=== PATIENT | female | born 1960 | race Hispanic/Latino ===

== ENCOUNTER 2017-02-11 20:50 | Emergency (ER) | payer MEDICAID ==
[2017-02-11 20:52] VITALS: BMI 24.7
[2017-02-11 21:03] VITALS: RESP 19; TEMP 97.8; O2SAT 100
[2017-02-11] MEDS ORDERED: oxyCODONE 30 mg Immediate Release Tab PO STA (21:20)
[2017-02-11 21:30] LABS: ADD MANUAL DIFF? NO
[2017-02-11 21:39] VITALS: PULSE 81
--- NOTE | 2017-02-11 21:45 | ED PDOC ---
Arrival/HPI - General Chief Complaint: Trauma Time Seen by Provider: 02/11/17 21:12 Historian: Patient - History of Present Illness Narrative History of Present Illness (Text): 02/11/17 21:15 A 56 year old female, whose past medical history includes ESRD (on dialysis Friday, and Friday), who presents to the emergency department complaining of right knee and right forearm pain since yesterday. Patient report yesterday she tripped over an uneven tile in her kitchen and fell onto her right side. Patient states pain is severe but she denies any head trauma, loss of consciousness, headache or any other complaints at this time. PMD: Dr. Resendiz Time/Duration: 24 hours Symptom Onset: Sudden Symptom Course: Unchanged Quality: Other Severity Level: Severe Activities at Onset: Rest Context: Home Past Medical History - Provider Review Nursing Documentation Reviewed: Yes - Infectious Disease Hx of Infectious Diseases: None - Tetanus Immunization Tetanus Immunization: Unknown - Cardiac Hx Cardiac Disorders: Yes (mi 2014) Hx Angina: Yes Hx Congestive Heart Failure: Yes Hx Hypertension: Yes Hx Pacemaker: No Hx Peripheral Edema: Yes - Pulmonary Hx Chronic Obstructive Pulmonary Disease (COPD): Yes Hx Pneumonia: Yes - Neurological Hx Neurological Disorder: Yes (headaches) HX Cerebrovascular Accident: Yes Other/Comment: syncope, brain aneurysm - HEENT Hx HEENT Disorder: Yes (eyeglasses) - Renal Hx Dialysis: Yes Type of Dialysis Access: R arm fistula Date of Last Dialysis Treatment: 02/07/17 - Endocrine/Metabolic Hx Endocrine Disorders: Yes Hx Hypothyroidism: Yes - Hematological/Oncological Hx Anemia: Yes (blood transfusion 2013) - Integumentary Hx Dermatological Disorder: Yes (chronic body itch) - Musculoskeletal/Rheumatological Hx Falls: Yes - Gastrointestinal Hx Gastrointestinal Disorders: Yes Hx Gastroesophageal Reflux: Yes - Genitourinary/Gynecological Hx Genitourinary Disorders: No - Psychiatric Hx Anxiety: Yes Hx Emotional Abuse: No Hx Panic Disorder: Yes Hx Physical Abuse: No Hx Substance Use: No - Past Surgical History Past Surgical History: Unable to Obtain - Surgical History Hx Cardiac Catheterization: Yes Other/Comment: brain aneurysm with sx. right chest wall fistula x3,. cardiac cath today 05/20/16. Fistula placed in R arm x2 - Anesthesia Hx Anesthesia: Yes Hx Anesthesia Reactions: Yes Hx Malignant Hyperthermia: No - Suicidal Assessment Feels Threatened In Home Enviroment: No Family/Social History - Physician Review Nursing Documentation Reviewed: Yes Family/Social History: Unknown Family HX Smoking Status: Light Smoker < 10 Cigarettes Daily Hx Alcohol Use: No Hx Substance Use: No Hx Substance Use Treatment: No Allergies/Home Meds Allergies/Adverse Reactions: Allergies Penicillins Allergy (Verified 02/11/17 20:52) ANAPHYLAXIS Home Medications: Home Meds Medication Instructions Recorded Confirmed ALPRAZolam [Xanax] 1 mg PO QID 08/19/13 02/11/17 Docusate [Colace] 100 mg PO DAILY PRN 02/07/15 02/11/17 Spironolactone 25 mg PO BID 02/07/15 02/11/17 Zolpidem Tartrate [Ambien] 10 mg PO HS 02/07/15 02/11/17 cloNIDine [clonidine HCl] 0.1 mg PO BID 02/07/15 02/11/17 Albuterol Sulfate [Proair Hfa] 0.09 mg IH Q4H PRN 01/23/16 02/11/17 Calcium Acetate [Phoslo] 667 mg PO TID 01/23/16 02/11/17 Hydralazine HCl 100 mg PO QID 01/23/16 02/11/17 Omeprazole [Prilosec] 40 mg PO DAILY 01/23/16 02/11/17 oxyCODONE [oxyCODONE Immediate 30 mg PO Q4H PRN 01/23/16 02/11/17 Release Tab] Sevelamer [Renagel] 800 mg PO TID 03/14/16 02/11/17 Review of Systems - Physician Review All systems were reviewed & negative as marked: Yes - Review of Systems Constitutional: absent: Other (head trauma) Respiratory: absent: SOB, Cough Cardiovascular: absent: Chest Pain, Syncope Gastrointestinal: absent: Abdominal Pain, Nausea, Vomiting Musculoskeletal: Other (right forearm and right knee pain) Neurological: absent: Headache, Dizziness, Focal Weakness Physical Exam Vital Signs Reviewed: Yes Vital Signs Temp Pulse Resp BP Pulse Ox 02/11/17 21:38 81 234/129 H 02/11/17 21:37 81 234/129 H 02/11/17 20:57 97.8 F 86 19 245/137 H 100 Temperature: Afebrile Blood Pressure: Hypertensive Pulse: Regular Respiratory Rate: Normal Appearance: Positive for: Well-Appearing, Non-Toxic, Comfortable Pain Distress: None Mental Status: Positive for: Alert and Oriented X 3 - Systems Exam Head: Present: Atraumatic, Normocephalic Pupils: Present: PERRL Conjunctiva: Present: Normal Mouth: Present: Moist Mucous Membranes Pharnyx: Present: Normal. No: ERYTHEMA, EXUDATE Neck: Present: Normal Range of Motion Respiratory/Chest: Present: Clear to Auscultation, Good Air Exchange. No: Respiratory Distress, Accessory Muscle Use Cardiovascular: Present: Regular Rate and Rhythm, Normal S1, S2. No: Murmurs Abdomen: Present: Normal Bowel Sounds. No: Tenderness, Distention, Peritoneal Signs Back: Present: Normal Inspection Upper Extremity: Present: Normal ROM, Tenderness (mild tenderness with palpation of the right forearm with multiple areas of ecchymosis; there is an av graft in the right forearm with bruit and thrill present), Neurovascularly Intact, Capillary Refill < 2s. No: Cyanosis, Edema, Swelling Lower Extremity: Present: NORMAL PULSES, Normal ROM, Tenderness (tendereness with palpation to the lateral aspect of the knee ). No: Edema Neurological: Present: GCS=15, CN II-XII Intact, Speech Normal Skin: Present: Warm, Dry. No: Rashes Psychiatric: Present: Alert, Oriented x 3, Normal Insight, Normal Concentration Medical Decision Making ED Course and Treatment: 02/11/17 21:15 Impression: A 56 year old female with right forearm and right knee pain. Differential Diagnosis include but are not limited to: fracture vs. dislocation vs. sprain Plan: -- EKG -- Right Forearm X-ray -- Right knee X-ray -- Labs -- Apresoline, Catapres and oxycodone -- Reassess and disposition Prior Visits: Notes and results from previous visits were reviewed. The blaire last presented to he emergency department on 05/20/16 for evaluation of worsening chest pain. Progress Notes: EKG: Ordered, reviewed, and independently interpreted the EKG. Rate : 78 BPM Rhythm : NSR Interpretation : QTC is 490, normal axis, no ST/T changes Comparison : No change from previous EKG on 06/24/2016 for comparison. 02/11/17 22:58 Patient with mechanical fall as noted. Exam as noted; XR are negative for fracture; R knee placed in knee immobilizer. Labs drawn as patient missed her HD today - K is 5.4, but patient says she has been rescheduled for HD tomorrow. Inital BP was elevated significantly, patient given her evening clonidine dose as well as a dose of hydralazine and analgesia; BP has come down significantly; her hypertension is asymptomatic at this time with no cadiopulmonary or neuro symptoms. Patient is already on oxycontin and oxycodone at home - ok for d/c to f/u ortho. - Lab Interpretations Lab Results: 02/11/17 21:24 02/11/17 21:24 Lab Results 02/11/17 21:24: WBC 8.9 D, RBC 3.93, Hgb 12.4, Hct 37.8, MCV 96.2, MCH 31.6, MCHC 32.8, RDW 13.0, Plt Count 194, MPV 10.5, Gran % 72.3 H, Lymph % (Auto) 18.9 L, [place] % (Auto) 6.4 H, Eos % (Auto) 2.2, Baso % (Auto) 0.2, Gran # 6.46, Lymph # 1.7, [place] # 0.6, Eos # 0.2, Baso # 0.02 02/11/17 21:24: Sodium 137, Potassium 5.4 H, Chloride 100, Carbon Dioxide 25, Anion Gap 17, BUN 53 H, Creatinine 8.2 H*, Est GFR ( Amer) 6, Est GFR ( Non-Af Amer) 5, Random Glucose 91, Calcium 8.4 I have reviewed the lab results: Yes - RAD Interpretation Radiology Orders: 02/11/17 21:21 FOREARM RIGHT [RAD] Stat 02/11/17 21:22 KNEE W PATELLA RIGHT 3 VIEW [RAD] Stat - Medication Orders Current Medication Orders: Discontinued Medications Clonidine HCl (Catapres) 0.2 mg PO STAT STA Stop: 02/11/17 21:22 Last Admin: 02/11/17 21:38 Dose: 0.2 mg Hydralazine HCl (Apresoline) 10 mg IVP STAT STA Stop: 02/11/17 21:35 Last Admin: 02/11/17 21:37 Dose: 10 mg Hydromorphone HCl (Dilaudid) 2 mg IVP STAT STA Stop: 02/11/17 22:02 Last Admin: 02/11/17 22:05 Dose: 2 mg Oxycodone HCl (Oxycodone Immediate Release Tab) 30 mg PO ONCE STA Stop: 02/11/17 21:21 Last Admin: 02/11/17 21:38 Dose: 30 mg - Scribe Statement The provider has reviewed the documentation as recorded by the Maryellen Gonzalez Provider Scribe Attestation: All medical record entries made by the Kavitaibvivian were at my direction and personally dictated by me. I have reviewed the chart and agree that the record accurately reflects my personal performance of the history, physical exam, medical decision making, and the department course for this patient. I have also personally directed, reviewed, and agree with the discharge instructions and disposition. Disposition/Present on Arrival - Present on Arrival Any Indicators Present on Arrival: No History of DVT/PE: No History of Uncontrolled Diabetes: No Urinary Catheter: No History of Decub. Ulcer: No History Surgical Site Infection Following: None - Disposition Have Diagnosis and Disposition been Completed?: Yes Diagnosis: Right knee sprain, Right forearm injury, Hypertension Disposition: HOME/ ROUTINE Disposition Time: 23:00 Patient Plan: Discharge Condition: GOOD Additional Instructions: You may continue your pain medication as prescribed. Follow up with your primary care doctor and hemodialysis tomorrow. You may use your av graft. Knee immobilizer with ambulation. Return to the emergency department if any new concerning symptoms. Referrals: Carlos Eduardo Resendiz MD [Family Provider] - Follow up with primary
[2017-02-11 21:49] LABS: BASO # 0.02 [, K/mm3] (0.0-2.0); BASO % 0.2 % (0.0-3.0); EOS # 0.2 (0.0-0.7); EOS % 2.2 % (1.5-5.0); GRAN # 6.46 (1.4-6.5); GRAN % 72.3 % (50.0-68.0); HEMATOCRIT 37.8 % (36.0-48.0); LYMPH # 1.7 (1.2-3.4); LYMPH % 18.9 % (22.0-35.0); MEAN CELL VOLUME 96.2 fL (80.0-105.0); MEAN CORPUSCULAR HEMOGLOBIN 31.6 pg (25.0-35.0); MEAN CORPUSCULAR HGB CONC 32.8 g/dl (31.0-37.0); MEAN PLATELET VOLUME 10.5 fl (7.0-11.0); MONO # 0.6 (0.1-0.6); MONO % 6.4 % (1.0-6.0); PLATELET COUNT 194 [, 10^3/uL] (120.0-450.0); WHITE BLOOD COUNT 8.9 [, 10^3/ul] (4.5-11.0)
[2017-02-11 21:54] LABS: CALCIUM 8.4 mg/dL (8.4-10.5); POTASSIUM 5.4 mmol/L (3.6-5.0)
[2017-02-11] MEDS ORDERED: HYDROmorphone 2 mg/ml ISec IVP STA (22:01)
[2017-02-11 23:41] VITALS: BP 203/98
--- NOTE | 2017-02-12 08:38 | RAD ---
PROCEDURE: Right Knee Radiographs. HISTORY: s/p fall; R knee pain COMPARISON: None. FINDINGS: BONES: Normal. No fracture. JOINTS: Normal. No osteoarthritis. JOINT EFFUSION: Possible small effusion present OTHER FINDINGS: None. Atherosclerotic vascular calcifications present IMPRESSION: No fracture dislocation. Possible suprapatellar joint effusion
--- NOTE | 2017-02-12 08:41 | RAD ---
PROCEDURE: Radiographs of the Right Forearm HISTORY: s/p fall; R forearm pain COMPARISON: None available. TECHNIQUE: Frontal and lateral views obtained. FINDINGS: BONES: No fracture or destructive lesion. JOINT SPACES: Unremarkable. OTHER FINDINGS: None. IMPRESSION: Unremarkable radiographs of the right forearm.
--- NOTE | 2017-02-12 11:27 | CARD ---
APPROVED REPORT EKG Measurement Heart [id number] <Conclusion> Normal sinus rhythm Possible Left atrial enlargement Abnormal ECG
--- NOTE | 2017-02-12 11:28 | CARD ---
APPROVED REPORT EKG Measurement Heart [id number] <Conclusion> Normal sinus rhythm Baseline artifact Minimal voltage criteria for LVH, may be normal variant T wave abnormality, nonspecific Abnormal ECG
== END 2017-02-11 23:43 | disposition home or self-care (01) ==
LOC: ED 20:50
DX: S83.91XA Sprain of unspecified site of right knee, initial encounter (principal); S59.911A Unspecified injury of right forearm, initial encounter; W01.0XXA Fall on same level from slipping, tripping and stumbling without subsequent striking against object, initial encounter; Y92.000 Kitchen of unspecified non-institutional (private) residence as the place of occurrence of the external cause; I12.0 Hypertensive chronic kidney disease with stage 5 chronic kidney disease or end stage renal disease; N18.6 End stage renal disease; Z99.2 Dependence on renal dialysis; Z72.0 Tobacco use
CPT/HCPCS: 73090; 73562; 80048; 85025; 93005; 96374; 96375; 99285; J0360; J1170

== ENCOUNTER 2017-11-24 11:15 | Inpatient (IN) | payer MEDICAID ==
[2017-11-24] MEDS ORDERED: Midazolam 2 MG/2 ML VIAL ONE (11:37)
[2017-11-24] MEDS ORDERED: Morphine 4 mg/ml ISec IVP STA (11:41)
[2017-11-24] MEDS ORDERED: Calcium Chloride 1000 mg/10 ml Syringe IV ONE (11:45)
[2017-11-24] MEDS ORDERED: Midazolam 2 MG/2 ML VIAL IVP STA (11:45)
--- NOTE | 2017-11-24 11:48 | ED PDOC ---
Arrival/HPI - General Chief Complaint: Chest Pain Time Seen by Provider: 11/24/17 11:40 Historian: Patient - History of Present Illness Narrative History of Present Illness (Text): 11/24/17 11:40 Charla Ledesma is a 57 year old female, whose past medical history includes ESRD (dialysis MWF), who presents to the emergency department complaining of heart palpitations prior to arrival. Patient states that she just completed dialysis when she began to feel jaw pain, left arm pain, nausea, and shortness of breath. Patient notes that she has had chest pain since last week but did not take her aspirin this morning. Patient also endorses that she skipped her last two dialysis appointments. Patient denies any leg swelling or any other complaint at this time. Patient is not a smoker or a drinker. pt denied fever/ chills/sweats, no abd pain, no vomiting; pt remains able to urinate, no BM changes, no fall/trauma/travel/sick contact; pt is here for further eval; pt's without other complaints PMD: Dr. Resendiz Ornamental Ironworker: Dr. Marin Cards: Dr smallwood 11/24/17 12:27 pt is not compliant with her dialysis Time/Duration: Prior to Arrival Symptom Onset: Sudden Symptom Course: Unchanged Severity Level: 8, Severe Activities at Onset: Light Context: Other (getting dialysis) Past Medical History - Provider Review Nursing Documentation Reviewed: Yes - Travel History Have you recently traveled outside [place] w/in the past 3 mons?: No - Past History Past History: Non-Contributing - Infectious Disease Hx of Infectious Diseases: None - Tetanus Immunization Tetanus Immunization: Unknown - Reproductive Menopause: Yes - Cardiac Hx Cardiac Disorders: Yes (mi 2014) Hx Angina: Yes Hx Congestive Heart Failure: Yes Hx Hypertension: Yes Hx Pacemaker: No Hx Peripheral Edema: Yes - Pulmonary Hx Chronic Obstructive Pulmonary Disease (COPD): Yes Hx Pneumonia: Yes - Neurological Hx Neurological Disorder: Yes (headaches) HX Cerebrovascular Accident: Yes Other/Comment: syncope, brain aneurysm - HEENT Hx HEENT Disorder: Yes (eyeglasses) - Renal Hx Dialysis: Yes Date of Last Dialysis Treatment: 02/07/17 - Endocrine/Metabolic Hx Endocrine Disorders: Yes Hx Hypothyroidism: Yes - Hematological/Oncological Hx Anemia: Yes (blood transfusion 2013) - Integumentary Hx Dermatological Disorder: Yes (chronic body itch) - Musculoskeletal/Rheumatological Hx Falls: Yes - Gastrointestinal Hx Gastrointestinal Disorders: Yes Hx Gastroesophageal Reflux: Yes - Genitourinary/Gynecological Hx Genitourinary Disorders: No - Psychiatric Hx Anxiety: Yes Hx Emotional Abuse: No Hx Panic Disorder: Yes Hx Physical Abuse: No Hx Substance Use: No - Past Surgical History Past Surgical History: Unable to Obtain - Surgical History Hx Cardiac Catheterization: Yes Other/Comment: brain aneurysm with sx. right chest wall fistula x3,. cardiac cath today 05/20/16. Fistula placed in R arm x2 - Anesthesia Hx Anesthesia: Yes Hx Anesthesia Reactions: Yes Hx Malignant Hyperthermia: No - Suicidal Assessment Feels Threatened In Home Enviroment: No Family/Social History - Physician Review Nursing Documentation Reviewed: Yes Family/Social History: No Known Family HX Smoking Status: Light Smoker < 10 Cigarettes Daily Hx Alcohol Use: No Hx Substance Use: No Hx Substance Use Treatment: No Allergies/Home Meds Allergies/Adverse Reactions: Allergies Penicillins Allergy (Verified 11/24/17 11:33) ANAPHYLAXIS Home Medications: Home Meds Medication Instructions Recorded Confirmed ALPRAZolam [Xanax] 1 mg PO QID 08/19/13 02/11/17 Docusate [Colace] 100 mg PO DAILY PRN 02/07/15 02/11/17 Spironolactone 25 mg PO BID 02/07/15 02/11/17 Zolpidem Tartrate [Ambien] 10 mg PO HS 02/07/15 02/11/17 cloNIDine [clonidine HCl] 0.1 mg PO BID 02/07/15 02/11/17 Albuterol Sulfate [Proair Hfa] 0.09 mg IH Q4H PRN 01/23/16 02/11/17 Calcium Acetate [Phoslo] 667 mg PO TID 01/23/16 02/11/17 Hydralazine HCl 100 mg PO QID 01/23/16 02/11/17 Omeprazole [Prilosec] 40 mg PO DAILY 01/23/16 02/11/17 oxyCODONE [oxyCODONE Immediate 30 mg PO Q4H PRN 01/23/16 02/11/17 Release Tab] Sevelamer [Renagel] 800 mg PO TID 03/14/16 02/11/17 Review of Systems - Physician Review All systems were reviewed & negative as marked: Yes - Review of Systems Constitutional: absent: Fevers Eyes: absent: Vision Changes ENT: absent: Hearing Changes Respiratory: SOB. absent: Cough Cardiovascular: Chest Pain, Palpitations Gastrointestinal: absent: Abdominal Pain Genitourinary Female: absent: Dysuria, Frequency Musculoskeletal: absent: Arthralgias Skin: absent: Rash, Pruritis Neurological: absent: Headache Endocrine: absent: Diaphoresis Hemo/Lymphatic: absent: Adenopathy Psychiatric: absent: Anxiety, Depression Physical Exam Vital Signs Reviewed: Yes Vital Signs Temp Pulse Resp BP Pulse Ox 11/24/17 11:54 169 H 138/88 11/24/17 11:33 98.2 F 175 H 20 148/111 H 97 Temperature: Afebrile Blood Pressure: Hypertensive Pulse: Tachycardic Respiratory Rate: Normal Appearance: Positive for: Uncomfortable, Other (resting in bed, alert/awake, GCS = 15, oriented x 3, cooperative, follows command with ease) Pain Distress: Moderate Mental Status: Positive for: Alert and Oriented X 3 - Systems Exam Head: Present: Atraumatic, Normocephalic Pupils: Present: PERRL, Other (no nystagmus, no photophobia, sclera anicteric, wearing eyeglasses) Extroacular Muscles: Present: EOMI Conjunctiva: Present: Normal Ears: Present: Normal Mouth: Present: Moist Mucous Membranes, Normal Teeth, Other (no drooling/stridor , no exudate/lesions, uvula/tongue are midline) Pharnyx: Present: Normal Nose (External): Present: Atraumatic Nose (Internal): Present: Normal Inspection Neck: Present: Normal Range of Motion, Trachea Midline, Other (no step off, no nuchal rigidity, no meningeal signs). No: MIDLINE TENDERNESS Respiratory/Chest: Present: Clear to Auscultation, Good Air Exchange, Other ( CTA b/l, no w/r/r, no accessory muscle use noted, no tachypenia). No: Respiratory Distress, Accessory Muscle Use Cardiovascular: Present: Tachycardic (positive rapid tachycardia noted, S1 S2). No: Murmurs Abdomen: Present: Normal Bowel Sounds, Other (well nourished female, no focal tenderness, no masses/rebound/guarding/rigidity, no gómez's sign, no mcburney' s point tenderness). No: Tenderness, Distention, Peritoneal Signs Back: Present: Normal Inspection. No: Midline Tenderness Upper Extremity: Present: Normal Inspection, Normal ROM, NORMAL PULSES, Neurovascularly Intact, Other (Dialysis shunt with good thrill to right arm; no clinical evidence of superficial infection) Lower Extremity: Present: Normal Inspection, NORMAL PULSES, Normal ROM, Neurovascularly Intact, Capillary Refill < 2 s. No: Edema, Vishnu's Sign Neurological: Present: GCS=15, CN II-XII Intact, Speech Normal Skin: Present: Warm, Dry, Normal Color, Other (cap refill < 1sec, no ulcerations , no petechiae, no rashes). No: Rashes Psychiatric: Present: Alert, Oriented x 3, Normal Insight, Normal Concentration Medical Decision Making ED Course and Treatment: 11/24/17 12:13 Impression: r/o acs, r/o TN, r/o chf, unlikely infectious 57 year old female complaining of heart palpitations prior to arrival. Differential Diagnosis included but are not limited to: Chest Pain r/o ACS; concern for hypervolemia Plan: -- EKG -- Chest X-ray -- Urinalysis -- Labs -- Adenosine, Aspirin, Calcium Chloride, Cardizem, Versed Injection, Morphine, and IV fluids -- Reassess and disposition Prior Visits: Notes and results from previous visits were reviewed. Patient was last seen in the emergency department on 02/11/17 for right knee and right forearm pain. Patient was discharged home. Progress Notes: attempt to chemically cardiovert patient initiated almost immediately upon patients ED arrival; 2 bolus of Adenosine at 12mg bolus was provided one after another but pt's HR remained in the 170s, will suggest cardizem bolus and likely cardizem gtt pt tolerated the procedure well, pt remains awake and alert and cooperative 11/24/17 11:[address] Smallwood, who agrees with emergency department management. Recommends Cardizem drip at 10 cc per hour. 11/24/17 12:00 On reassessment, Patient continues to have left sided chest discomfort rated at 6/10. Vitals slightly. Heart rate at 130. Awaiting Cardizem drip to be set up. 11/24/17 12:25 Dr Smallwood is at bedside, would like another bolus of 10mg cardizem, agrees with Cardizem gtt, and agrees with Heparin Gtt; will continue to monitor patient, ok with Tele bed placement 11/24/17 12:33 pt is currently feeling improved, but chest pain remains intermittently pt is made aware of her medical results agrees with admission 11/24/17 13:[address] Resendiz, pt's PCP, made aware of pt's medical complaints and course of ED presentation, agrees with ED mgt/txt, agrees with Admission Re-evaluation Time: 12:00 Reassessment Condition: Improving,but remains with symptoms - Critical Care Critical Care Minutes: 45 minutes Critical Care Time: Excluding Proc Time Narrative Critical Care (Text): 11/24/17 12:33 critical care time: 45min, excluding procedure time, excluding time teaching residents/students/mid-level providers; including initial eval/diagnosis, diagnostic interpretation, re-eval, consultations, final disposition - Lab Interpretations Lab Results: 11/24/17 11:30 11/24/17 11:30 Lab Results 11/24/17 11:30: Sodium 145, Potassium 3.6, Chloride 99, Carbon Dioxide 30, Anion Gap 20, BUN 21, Creatinine 3.8 H, Est GFR ( Amer) 15, Est GFR (Non- Af Amer) 12, Random Glucose 105, Calcium 9.1, Phosphorus 2.9, Magnesium 2.2, Total Bilirubin 0.6, AST 14, ALT 17, Alkaline Phosphatase 70, Lactate Dehydrogenase 497, Total Creatine Kinase 69, Troponin I 0.03 D, NT-Pro-B Natriuret Pep 43908 H, Total Protein 7.6, Albumin 4.3, Globulin 3.3, Albumin/ Globulin Ratio 1.3 11/24/17 11:30: PT 11.2, INR 0.97, APTT 29.1 11/24/17 11:30: WBC 8.3, RBC 3.99, Hgb 12.6, Hct 37.9, MCV 95.0, MCH 31.6, MCHC 33.2, RDW 13.7, Plt Count 210, MPV 10.9, Gran % 58.9, Lymph % (Auto) 29.7, Bledsoe % (Auto) 8.1 H, Eos % (Auto) 2.9, Baso % (Auto) 0.4, Gran # 4.87, Lymph # (Auto ) 2.5, Bledsoe # (Auto) 0.7 H, Eos # (Auto) 0.2, Baso # (Auto) 0.03 I have reviewed the lab results: Yes Interpretation: Abnormal lab values (chronically elevated creat) - RAD Interpretation Narrative RAD Interpretations (Text): 11/24/17 13:08 vasc congestion mild cardiomeagly Radiology Orders: 11/24/17 11:41 CHEST PORTABLE [RAD] Stat Java Mobile Developer: ED Physician - EKG Interpretation EKG Interpretation (Text): 11/24/17 12:35 EKG1: Rapid atrial fib with vent response at 170 bpm, normal axis, no ectopy, non-specific st-t changes, ABNL EKG; changes compare with old ekg 02/201711/24/17 12:37 EKG rhythm 1/2: rhythm with response to adenosine, ? atrial flutter baseline, but HR resumes to > 160 bpm EKG2: atrial fib with rapid vent response at 170bpm, normal axis, + ectopy, non- specific st-t changes, ABNL EKG Interpreted by ED Physician: Yes Type: 12 lead EKG Comparison: Different from prev. EKG - Medication Orders Current Medication Orders: Clonidine HCl (Catapres) 0.1 mg PO BID ANGEL Hydralazine HCl (Apresoline) 10 mg PO QID PRN PRN Reason: for sbp>170 diltiaZEM IVPB 100mg in NS (Cardizem 100mg In Ns) 100 mls @ 10 mls/hr IV .Q10H PRN; Protocol; 10 MG/HR PRN Reason: TITRATE PER MD ORDER Heparin Sodium/Sodium Chloride (Heparin 58309 Units/250ml 1/2 Normal Saline) 25 ,000 units in 250 mls @ 12.819 mls/hr IV .[id number] PRN; Protocol; 18 UNITS/KG/HR PRN Reason: ADJUST RATE PER PROTOCOL Labetalol HCl (Trandate) 400 mg PO Q8H ANGEL Metoprolol Tartrate (Lopressor) 25 mg PO BID ANGEL Discontinued Medications Adenosine (Adenosine 6 Mg/2 Ml Inj) 12 mg IVP STAT STA Stop: 11/24/17 11:41 Last Admin: 11/24/17 11:56 Dose: Adenosine (Adenosine 6 Mg/2 Ml Inj) 12 mg IVP STAT STA Stop: 11/24/17 11:45 Last Admin: 11/24/17 11:54 Dose: 12 mg IVP Administration Document 11/24/17 11:54 EQ (Rec: 11/24/17 11:54 EQ [facility] [id number][place] Charges for Administration # of IVP Administrations 1 Aspirin (Aspirin) 325 mg PO STAT STA Stop: 11/24/17 11:42 Last Admin: 11/24/17 11:54 Dose: 325 mg Calcium Chloride (Calcium Chloride) 1,000 mg IV ONCE ONE Stop: 11/24/17 11:46 Last Admin: 11/24/17 11:54 Dose: 1,000 mg eMAR Start Stop Document 11/24/17 11:54 EQ (Rec: 11/24/17 11:54 EQ [id number]) Intravenous Solution Start Date 11/24/17 Start Time 11:54 Clonidine HCl (Catapres) 0.1 mg PO BID ANGEL Diltiazem HCl (Cardizem) 20 mg IVP STAT STA Stop: 11/24/17 11:45 Last Admin: 11/24/17 11:54 Dose: 20 mg IVP Administration Document 11/24/17 11:54 EQ (Rec: 11/24/17 11:54 EQ [facility] [id number]) Charges for Administration # of IVP Administrations 1 MAR Pulse and Blood Pressure Document 11/24/17 11:54 EQ (Rec: 11/24/17 11:54 EQ [facility] [id number]) Pulse Pulse Rate (60-90) 169 Blood Pressure Blood Pressure (100/60-150/90) 138/88 Diltiazem HCl (Cardizem) 10 mg IVP STAT STA Stop: 11/24/17 12:27 Heparin Sodium (Porcine) (Heparin) 4,000 units IV ONCE ONE PRN Reason: Protocol Stop: 11/24/17 12:22 diltiaZEM IVPB 100mg in NS (Cardizem 100mg In Ns) 100 mls @ 5 mls/hr IV .Q20H PRN; Protocol; 5 MG/HR PRN Reason: TITRATE PER MD ORDER Last Admin: 11/24/17 12:22 Dose: 10 mls/hr Comments: As per Dr. Smallwood eMAR Start Stop Document 11/24/17 12:22 EQ (Rec: 11/24/17 12:23 EQ [facility] [id number]) Intravenous Solution Start Date 11/24/17 Start Time 12:23 Sodium Chloride (Sodium Chloride 0.9%) 250 mls @ 999 mls/hr IV .Q16M STA Stop: 11/24/17 12:20 Last Admin: 11/24/17 12:09 Dose: 999 mls/hr eMAR Start Stop Document 11/24/17 12:09 EQ (Rec: 11/24/17 12:09 EQ [facility] [id number]) Intravenous Solution Start Date 11/24/17 Start Time 12:09 Labetalol HCl (Trandate) 400 mg PO Q8H ANGEL Metoprolol Tartrate (Lopressor) 50 mg PO STAT STA Stop: 11/24/17 13:06 Midazolam HCl (Versed Inj) 2 mg IVP STAT STA Stop: 11/24/17 11:46 Last Admin: 11/24/17 11:55 Dose: 2 mg IVP Administration Document 11/24/17 11:55 EQ (Rec: 11/24/17 11:55 EQ [facility] [id number]) Charges for Administration # of IVP Administrations 1 Morphine Sulfate (Morphine) 4 mg IVP STAT STA Stop: 11/24/17 11:42 Last Admin: 11/24/17 11:54 Dose: 4 mg MAR Pain Assessment Document 11/24/17 11:54 EQ (Rec: 11/24/17 11:54 EQ [id number]) Pain Reassessment Is this a pain reassessment? No Sleep Is patient sleeping during reassessment? No Presence of Pain Presence of Pain Yes Pain Scale Used Pain Scale Used Numeric IVP Administration Document 11/24/17 11:54 EQ (Rec: 11/24/17 11:54 EQ [facility] [id number]) Charges for Administration # of IVP Administrations 1 Nitroglycerin (Nitro-Bid 2% Oint) 1 ea TOP STAT STA Stop: 11/24/17 13:10 - Scribe Statement The provider has reviewed the documentation as recorded by the Maryellen Alicia Provider Scribe Attestation: All medical record entries made by the Scribe were at my direction and personally dictated by me. I have reviewed the chart and agree that the record accurately reflects my personal performance of the history, physical exam, medical decision making, and the department course for this patient. I have also personally directed, reviewed, and agree with the discharge instructions and disposition. Disposition/Present on Arrival - Present on Arrival Any Indicators Present on Arrival: No History of DVT/PE: No History of Uncontrolled Diabetes: No Urinary Catheter: No History of Decub. Ulcer: No History Surgical Site Infection Following: None - Disposition Have Diagnosis and Disposition been Completed?: Yes Diagnosis: New onset atrial fibrillation, Chest pain with moderate risk of acute coronary syndrome, End stage renal disease on dialysis, Elevated blood pressure reading Disposition: HOSPITALIZED Disposition Time: 12:41 Patient Plan: Admission Patient Problems: Current Active Problems Problem Status Onset New onset atrial fibrillation Acute Chest pain with moderate risk of acute coronary syndrome Acute End stage renal disease on dialysis Acute Elevated blood pressure reading Acute Condition: STABLE
[2017-11-24 12:05] LABS: BASO # 0.03 K/mm3 (0.0-2.0); BASO % 0.4 % (0.0-3.0); EOS # 0.2 (0.0-0.7); EOS % 2.9 % (1.5-5.0); GRAN # 4.87 (1.4-6.5); GRAN % 58.9 % (50.0-68.0); HEMOGLOBIN 12.6 g/dL (12.0-16.0); LYMPH # 2.5 (1.2-3.4); LYMPH % 29.7 % (22.0-35.0); MEAN CORPUSCULAR HEMOGLOBIN 31.6 pg (25.0-35.0); MEAN CORPUSCULAR HGB CONC 33.2 g/dl (31.0-37.0); MEAN PLATELET VOLUME 10.9 fl (7.0-11.0); MONO # 0.7 (0.1-0.6); MONO % 8.1 % (1.0-6.0); RBC 3.99 10^6/uL (3.5-6.1); RED CELL DISTRIBUTION WIDTH 13.7 % (11.5-14.5); WHITE BLOOD COUNT 8.3 10^3/ul (4.5-11.0)
[2017-11-24] MEDS ORDERED: Sodium Chloride 0.9% 250 ML IV STA (12:05)
[2017-11-24] MEDS: diltiaZEM IVPB 100mg in NS 100 ML IV PRN ×2 (12:08→14:35)
[2017-11-24 12:17] LABS: ALB/GLOB RATIO 1.3 (1.1-1.8); ALBUMIN 4.3 g/dL (3.0-4.8); CALCIUM 9.1 mg/dL (8.4-10.5); MAGNESIUM 2.2 mg/dL (1.7-2.2)
[2017-11-24] MEDS ORDERED: Heparin25000 units/250ml 1/2NS 25,000 UNITS/250 ML BAG IV PRN ×2 (12:21→13:21)
[2017-11-24 12:25] LABS: INR 0.97 (0.93-1.08); PARTIAL THROMBOPLASTIN TIME 29.1 Seconds (25.1-36.5); PROTHROMBIN TIME 11.2 SECONDS (9.4-12.5)
[2017-11-24 12:28] LABS: TROPONIN I 0.03 ng/mL
[2017-11-24] MEDS ORDERED: diltiaZEM IVPB 100mg in NS 100 ML IV PRN (13:05)
[2017-11-24] MEDS ORDERED: Nitroglycerin 2% Ointment Foilpak UD TOP STA (13:09)
[2017-11-24 13:16] VITALS: BMI 25.3
--- NOTE | 2017-11-24 13:55 | RAD ---
HISTORY: chest pain COMPARISON: 05/20/2016 FINDINGS: LUNGS: No active pulmonary disease. PLEURA: No significant pleural effusion identified, no pneumothorax apparent. CARDIOVASCULAR: Mild cardiomegaly and mild vascular congestion OSSEOUS STRUCTURES: No significant abnormalities. VISUALIZED UPPER ABDOMEN: Normal. OTHER FINDINGS: None. IMPRESSION: Mild cardiomegaly and mild vascular congestion
[2017-11-24] MEDS ORDERED: oxyCODONE 30 mg Immediate Release Tab PO PRN (14:37)
[2017-11-24] MEDS ORDERED: Influenza Vaccine 60 mcg/0.5 mL SYR (4YR UP) IM ONE (19:35)
[2017-11-24] MEDS ORDERED: Pneumococcal 23-Valent Vaccine IM ONE (19:35)
--- NOTE | 2017-11-24 21:14 | CARD ---
APPROVED REPORT EKG Measurement Heart [id number] <Conclusion> Poor data quality, interpretation may be adversely affected Atrial flutter with variable AV block Nonspecific ST abnormality Prolonged QT Abnormal ECG
--- NOTE | 2017-11-24 21:17 | CARD ---
APPROVED REPORT EKG Measurement Heart [id number] <Conclusion> Poor data quality, interpretation may be adversely affected Atrial fibrillation with rapid ventricular response with premature ventricular or aberrantly conducted complexes Marked ST abnormality, possible inferolateral subendocardial injury Abnormal ECG
--- NOTE | 2017-11-24 21:23 | CARD ---
APPROVED REPORT EKG Measurement Heart [id number] <Conclusion> Atrial fibrillation with rapid ventricular response Marked ST abnormality, possible inferior subendocardial injury Abnormal ECG
[2017-11-25 06:28] VITALS: BP 130/63; PULSE 64; RESP 18; TEMP 98.6; O2SAT 95
--- NOTE | 2017-11-25 07:41 | CON ---
DATE: 11/24/2017 REASON FOR CONSULTATION AND FOLLOWUP: AFib with rapid ventricular rate and chest pain. BRIEF CLINICAL HISTORY: This is a 57-year-old female with past medical history significant for hypertension; hyperlipidemia; end-stage renal disease, on dialysis, who missed the dialysis for 1 week, ultimately get the dialysis and at the end of dialysis, patient feels chest pain and palpitations, found to be in AFib with rapid heart rate 180. So, at that time, Cardiology consult was called from ER. At the middle of the case, I told the ER to give 20 of Cardizem and 10 of Cardizem an hour and I will see later after the end of the procedure. At the end of procedure, I went down to see her. The patient was given 10 of Cardizem per hour, rate was well controlled to 120 to 130, significantly improved, though at a faster rate, the patient had some ST-T changes and chest pain also, which is now subsided and feels a lot better. Patient is very well known, noncompliance with medications and noncompliance with dialysis too. PAST MEDICAL HISTORY: Past history significant for history congestive heart failure, history of thyroid mass, history of cardiomegaly, and renal insufficiency, started on dialysis in May 2017. Previous cardiac workup as follows, the patient had cardiac catheterization done on 05/20 , that revealed nonobstructive coronary arteries, limited only to diagonal 2 at 70% stenosis, preserved LV function, ejection fraction 55%, EDP was in the range of 20 mmHg. The detail of the CAT as follows, the patient had coronary anatomy, right-sided dominant, left main essentially free of significant disease, bifurcate LAD and circumflex. LAD has calcification noted throughout the vessels, large caliber vessels, 20% stenosis noted, but diagonal 2 with 70% stenosis, very small artery and ostial disease. Circumflex is medium-sized vessels, calcification noted throughout, 30% stenosis noted. Right coronary arteries are dominant, large caliber vessels, essentially free of significant disease. Ejection fraction as mentioned 55%. The patient had a stress test on 07/20/2014, that was decreased LV function. The patient underwent MUGA scan on 07/19/2014, that showed preserved LV function. Repeat echo on 12/26/2014, ejection fraction is 65%, moderate MR, moderate TR, RV systolic pressure 70. PAST SURGICAL HISTORY: Significant for ultrasound-guided biopsy and shunt in arm. SOCIAL HISTORY: Significant for smoking, claimed that quit smoking, but every now and then some tobacco abuse. Denies any history of alcohol abuse. FAMILY HISTORY: Significant for coronary artery disease and hypertension. PHYSICAL EXAMINATION: GENERAL: The patient is mild distress with palpitations, but no chest pain at this time. VITAL SIGNS: Heart rate 130, AFib. Blood pressure 148/111. HEENT: PERRLA. Extraocular muscles are intact. NECK: Supple. No carotid bruits or thyromegaly. CHEST: Clear to auscultation. HEART: S1 and S2, regular. ABDOMEN: Soft. EXTREMITIES: Clubbing and cyanosis negative. LABORATORY DATA: EKG, admitting shows heart rate of 178, AFib with ST-T changes. Repeat EKG shows heart rate of 139 and significantly improved but still patient is in AFib. Blood workup shows WBC 8.2, hemoglobin 12.6, hematocrit , and platelet count 210. Chemistry shows sodium 145, potassium 3.6, chloride 99, carbon dioxide 30, anion gap of 20, BUN 21, and creatinine 3.8. CURRENT MEDICATIONS: The patient at home was taking oxycodone, clonidine, spironolactone, labetalol, calcium acetate, and albuterol. IMPRESSION: Atrial fibrillation with rapid ventricular rate; noncompliance with medications; end-stage renal disease, on dialysis; history of cardiac catheterization in 05/2017; nonobstructive coronary artery disease and only limited to D2; diabetes; hypertension; hyperlipidemia. RECOMMENDATIONS: As mentioned, the patient has atrial fibrillation with rapid ventricular rate; end-stage renal disease, on dialysis, skipped dialysis for 1 week; admitted with atrial fibrillation with rapid ventricular rate; chest pain most likely secondary to atrial fibrillation with rapid rate, doubted as myocardial infarction. The patient had a cardiac catheterization in 05/2017, nonobstructive coronary artery disease. We will start IV Cardizem, increase to Cardizem 10 mL an hour, give 10 of bolus again; beta-tori, clonidine and we will get echo to assess the LV function. Follow serial CPK and troponin. Continue heparin. We will follow further recommendations depending upon the hospital course. We will follow with you. Thank you Dr. Resendiz for providing us the opportunity in taking care of the patient, Charla Ledesma. We will follow with you. Chloe Smallwood MD
--- NOTE | 2017-11-25 09:24 | HP ---
REASON FOR ADMISSION: Palpitation. HISTORY OF PRESENT ILLNESS: The patient was doing dialysis. She came in to the hospital because of heart rate went up. She felt dizzy, came into the ER with heart rate of 170. She felt to have atrial fibrillation. She was given Cardizem and responded. Her heart rate came down to 140s and 130s and Cardizem drip was started. The patient also was seen by Dr. Smallwood while in emergency room and the patient was stabilized and was admitted for observations. She did complain of some subacute discomfort. She did have some chest pain a few days ago in office and EKG did not show any difference. Laboratory studies were given to the patient and workup to be done in emergency room, but the patient deferred and went for dialysis. The patient has at time chest pain which is similar to pericarditis like picture. At this time, the patient will be admitted with a cardiac workup and will follow up clinically. PAST MEDICAL HISTORY: Hypertension, asthma, COPD, chronic disk disease, hypertensive bleed, poorly controlled blood pressure, noncompliance with high blood pressure meds or with dialysis, she missed two dialysis which increased the risk of pericarditis. Chronic anxiety. HOME MEDICATIONS: Oxycodone 30 every four hours, clonidine 0.1 b.i.d. p.r.n., Ambien 10, spironolactone 25 b.i.d., Renagel 800 t.i.d., Prilosec 40, labetalol 400 t.i.d., hydralazine 100 q.i.d., Colace 100 every day, PhosLo 667 t.i.d., ProAir, Ventolin and Xanax 1 mg q.i.d. ALLERGIES: PENICILLIN, SEVERE. SOCIAL HISTORY: No smoke. No drink. She lives with her mom. She is a sick lady. She is taking care of her. She has a boyfriend supported and she has one child in adult, in 20s. REVIEW OF SYSTEMS: Other than the present illness, generalized weakness, leg pain, anxiety, cough, COPD and getting dialysis supposedly three times a week, chronic anxiety. PHYSICAL EXAMINATION: GENERAL: The patient is alert, awake, oriented x3, heart rate now is 66, blood pressure 110/64, respiration 18, saturating 99%, temperature 98. HEAD AND NECK: Normal. No JVD, no thyromegaly. CHEST: Clear. Good air entry. CARDIAC: First sound and second sounds normal. ABDOMEN: Soft, nontender. EXTREMITIES: No edema. NEUROLOGIC: Normal. Chest x-ray which was done in emergency room shows no acute pulmonary disease, also the patient has an EKG which shows atrial fibrillation with rapid ventricular response, marked ST abnormality, possibly inferior subendocardial injury, abnormal EKG. IMPRESSION AND PLAN: 1. Acute onset atrial fibrillation, continue Cardizem and switch to p.o. 2. Hypertension, poorly controlled, continue blood pressure medicine, monitor blood pressure with holding parameters. 3. Chronic renal failure, continue hemodialysis. The patient should be complaint with her dialysis and with her blood pressure medicine. 4. Chronic back pain, chronic disk disease. 5. Chest pain, we will admit for cardiac enzymes x3, echocardiogram and further evaluation by Dr. Smallwood. Continue current therapy. Followup clinically. We will give the patient also aspirin. Carlos Eduardo Resendiz MD
== END 2017-11-25 06:21 | disposition left against medical advice (07) | DRG 138 ==
LOC: ED 11:15 → ERH 12:50 → 2RNO 16:26
PROVIDERS: ADMIT Internal Medicine; ATTEND Internal Medicine
DX: I48.91 Unspecified atrial fibrillation (principal); J44.9 Chronic obstructive pulmonary disease, unspecified; I13.2 Hypertensive heart and chronic kidney disease with heart failure and with stage 5 chronic kidney disease, or end stage renal disease; N18.6 End stage renal disease; I50.9 Heart failure, unspecified; Z99.2 Dependence on renal dialysis; F41.9 Anxiety disorder, unspecified; G89.29 Other chronic pain; E78.5 Hyperlipidemia, unspecified; R07.9 Chest pain, unspecified; I25.10 Atherosclerotic heart disease of native coronary artery without angina pectoris; Z91.14 Patient's other noncompliance with medication regimen; Z91.15 Patient's noncompliance with renal dialysis; I25.2 Old myocardial infarction

== ENCOUNTER 2017-12-01 07:33 | Emergency (ER) | payer MEDICAID ==
[2017-12-01 07:46] VITALS: TEMP 98.6
[2017-12-01 07:56] VITALS: BMI 24.6
--- NOTE | 2017-12-01 08:04 | ED PDOC ---
Arrival/HPI - General Chief Complaint: Chest Pain Time Seen by Provider: 12/01/17 07:50 Historian: Patient - History of Present Illness Narrative History of Present Illness (Text): you were treated in the ED today for history of COPD, HTN, HTN bleed, ESRD on dialysis with last past Friday, and was admitted 11/24/17 for new onset atrial fibrilliation which was converted and you signed out against medical advice the next day, with re-smoking and recurrent chest pain the past 2 days, on the left side with radiation to the left neck/head, associated with difficulty breathing and left lower leg swelling but otherwise without any nausea/vomiting/headache/ dizziness/abdomen pain/numbness/tingling/loss of limb function/pain with urination/travel/prior blood clots/prior cancer. Time/Duration: Other (2 days) Symptom Onset: Gradual Symptom Course: Unchanged Quality: Aching Severity Level: 3 Activities at Onset: Rest Context: Sitting Past Medical History - Provider Review Nursing Documentation Reviewed: Yes - Travel History Have you recently traveled outside [place] w/in the past 3 mons?: No - Past History Past History: Non-Contributing - Infectious Disease Hx of Infectious Diseases: None - Tetanus Immunization Tetanus Immunization: Unknown - Cardiac Hx Cardiac Disorders: Yes (mi 2014) Hx Angina: Yes Hx Congestive Heart Failure: Yes Hx Hypertension: Yes Hx Pacemaker: No Hx Peripheral Edema: Yes - Pulmonary Hx Respiratory Disorders: Yes Hx Chronic Obstructive Pulmonary Disease (COPD): Yes Hx Pneumonia: Yes - Neurological Hx Neurological Disorder: Yes (headaches) HX Cerebrovascular Accident: Yes Other/Comment: syncope, brain aneurysm - HEENT Hx HEENT Disorder: Yes (eyeglasses) - Renal Hx Dialysis: Yes - Endocrine/Metabolic Hx Endocrine Disorders: Yes Hx Hypothyroidism: Yes - Hematological/Oncological Hx Blood Disorders: Yes Hx Anemia: Yes (blood transfusion 2013) - Integumentary Hx Dermatological Disorder: Yes (chronic body itch) - Musculoskeletal/Rheumatological Hx Falls: Yes - Gastrointestinal Hx Gastrointestinal Disorders: Yes Hx Gastroesophageal Reflux: Yes - Genitourinary/Gynecological Hx Genitourinary Disorders: No - Psychiatric Hx Anxiety: Yes Hx Emotional Abuse: No Hx Panic Disorder: Yes Hx Physical Abuse: No Hx Substance Use: No - Past Surgical History Past Surgical History: Unable to Obtain - Surgical History Hx Cardiac Catheterization: Yes Other/Comment: brain aneurysm with sx. right chest wall fistula x3,. cardiac cath today 8/15/16. Fistula placed in R arm x2 - Anesthesia Hx Anesthesia: Yes Hx Anesthesia Reactions: Yes Hx Malignant Hyperthermia: No - Suicidal Assessment Feels Threatened In Home Enviroment: No Family/Social History - Physician Review Nursing Documentation Reviewed: Yes Family/Social History: Unknown Family HX Smoking Status: Former Smoker Hx Alcohol Use: No Hx Substance Use: No Hx Substance Use Treatment: No Allergies/Home Meds Allergies/Adverse Reactions: Allergies Penicillins Allergy (Verified 11/24/17 16:24) ANAPHYLAXIS Home Medications: Home Meds Medication Instructions Recorded Confirmed ALPRAZolam [Xanax] 1 mg PO QID 08/19/13 12/01/17 Docusate [Colace] 100 mg PO DAILY PRN 02/07/15 12/01/17 Spironolactone 25 mg PO BID 02/07/15 12/01/17 Zolpidem Tartrate [Ambien] 10 mg PO HS 02/07/15 12/01/17 cloNIDine [clonidine HCl] 0.1 mg PO BID 02/07/15 12/01/17 Albuterol Sulfate [Proair Hfa] 0.09 mg IH Q4H PRN 01/23/16 12/01/17 Calcium Acetate [Phoslo] 667 mg PO TID 01/23/16 12/01/17 Hydralazine HCl 100 mg PO QID 01/23/16 12/01/17 Omeprazole [Prilosec] 40 mg PO DAILY 01/23/16 12/01/17 oxyCODONE [oxyCODONE Immediate 30 mg PO Q4H PRN 01/23/16 12/01/17 Release Tab] Sevelamer [Renagel] 800 mg PO TID 03/14/16 12/01/17 Review of Systems - Review of Systems Constitutional: Normal Eyes: Normal ENT: Normal Respiratory: SOB Cardiovascular: Chest Pain Gastrointestinal: Normal Genitourinary Female: Normal Musculoskeletal: Other (LLE swelling of thigh) Skin: Normal Neurological: Normal Endocrine: Normal Hemo/Lymphatic: Normal Psychiatric: Normal Physical Exam Vital Signs Reviewed: Yes Vital Signs Temp Pulse Resp BP Pulse Ox 12/01/17 07:45 98.6 F 63 18 160/107 H 100 Temperature: Afebrile Blood Pressure: Hypertensive Pulse: Regular Respiratory Rate: Normal Appearance: Positive for: Well-Appearing, Non-Toxic, Comfortable Pain Distress: None Mental Status: Positive for: Alert and Oriented X 3 - Systems Exam Head: Present: Atraumatic, Normocephalic Pupils: Present: PERRL Extroacular Muscles: Present: EOMI Conjunctiva: Present: Normal Ears: Present: Normal Mouth: Present: Moist Mucous Membranes Pharnyx: Present: Normal Nose (External): Present: Atraumatic Nose (Internal): Present: Normal Inspection Neck: Present: Normal Range of Motion Respiratory/Chest: Present: Clear to Auscultation, Good Air Exchange Cardiovascular: Present: Regular Rate and Rhythm Abdomen: No: Tenderness, Distention, Normal Bowel Sounds, Peritoneal Signs, Rebound, Guarding, McBurney's Point Tender, Rovsing's Sign Present, Hernias, Feeding Tubes, Ostomy Tubes, Mass/Organomegaly, Scars, Other Upper Extremity: Present: Normal Inspection, Other (RUE + thrill forearm avf.) Lower Extremity: Present: Normal Inspection, Other (LLE wo specific swelling, and otherwise pink/warm/sensation/cap refill/pink, with DP pulse+.) Neurological: Present: GCS=15, CN II-XII Intact, Speech Normal, Motor Func Grossly Intact Skin: Present: Warm, Normal Color Psychiatric: Present: Alert, Oriented x 3, Normal Insight, Normal Concentration Medical Decision Making ED Course and Treatment: you were treated in the ED today for history of COPD, HTN, HTN bleed, ESRD on dialysis with last past Friday, and was admitted 11/24/17 for new onset atrial fibrilliation which was converted and you signed out against medical advice the next day, with re-smoking and recurrent chest pain the past 2 days, on the left side with radiation to the left neck/head, associated with difficulty breathing and left lower leg swelling but otherwise without any nausea/vomiting/headache/ dizziness/abdomen pain/numbness/tingling/loss of limb function/pain with urination/travel/prior blood clots/prior cancer. You were otherwise breathing easily, pink moist lips, talking easily, good strength/sensation, alert/oriented , walking easily, clear lungs, no abdomen tenderness, no fever temp 98.6, stable heart rate 63, stable breathing rate 18, excellent oxygen level 100% on oxygen, elevated blood pressure 160/107 which we recommend repeat in 2-3 days primary care office to determine further treatment, you have blood tests no infection count 7, stable blood level hemoglobin 10/platelets 164, stable chemistry, elevated for potassium 5.1, elevated creatinine 6.8, elevated magnesium 2.4, heart blood test negative 0.02, heart failure test 57,000, radiology chest xray shows mild cardiomegaly, mild vascular and interstitial congestion, US LLE negative for DVT, ECG normal sinus rhythm, you already took x4 aspirin tabs on the way to ED, observation done in the ED with improvement, counselled to stop smoking, recommended to stay till in the hospital for further care/admission but you refused and cautioned for complications/. you stated you will followup with your primary care doctor today. if any worsening symptoms for anything return to the hospital right away. Report Date : 12/01/2017 09:29:14 PROCEDURE: Left lower extremity venous US Dictator : Gurmeet Carson MD IMPRESSION: No sonographic evidence for deep venous thrombosis in the visualized segments of the left lower extremity. Report Date : 12/01/2017 09:33:17 Procedure: Chest xray Dictator : Kiran Dior MD IMPRESSION: Mild cardiomegaly. Mild vascular and interstitial congestion paged dr. resendiz who called back and stated will call back again as busy. 12/01/17 11:11 Reassessment Condition: Improved - Lab Interpretations Lab Results: 12/01/17 08:10 12/01/17 08:10 Lab Results 12/01/17 08:10: Sodium 141, Potassium 5.1 H, Chloride 100, Carbon Dioxide 27, Anion Gap 18, BUN 38 H, Creatinine 6.8 H, Est GFR ( Amer) 8, Est GFR (Non -Af Amer) 6, Random Glucose 96, Calcium 8.5, Magnesium 2.4 H, Total Bilirubin 0.5, AST 22, ALT 32, Alkaline Phosphatase 61, Lactate Dehydrogenase 409, Total Creatine Kinase 65, Troponin I 0.02 D, NT-Pro-B Natriuret Pep 29501 H, Total Protein 6.6, Albumin 3.8, Globulin 2.8, Albumin/Globulin Ratio 1.3 12/01/17 08:10: PT 11.9, INR 1.03, APTT 29.3 12/01/17 08:10: WBC 7.3, RBC 3.33 L, Hgb 10.3 L D, Hct 32.5 L, MCV 97.6, MCH 30.9, MCHC 31.7, RDW 13.5, Plt Count 164, MPV 10.9, Gran % 78.1 H, Lymph % (Auto ) 14.5 L, [place] % (Auto) 5.4, Eos % (Auto) 1.9, Baso % (Auto) 0.1, Gran # 5.66, Lymph # (Auto) 1.1 L, [place] # (Auto) 0.4, Eos # (Auto) 0.1, Baso # (Auto) 0.01 I have reviewed the lab results: Yes - RAD Interpretation Radiology Orders: 12/01/17 07:58 DUPLEX LOWER EXTRM VEIN LEFT [US] Stat 12/01/17 07:59 CHEST PORTABLE [RAD] Stat Manager Wind: Radiologist (cxr mild vascular and interstitial congestion, u/s lle no dvt.) - EKG Interpretation Interpreted by ED Physician: Yes (NSR, flipped t waves avr, v1) Type: 12 lead EKG Disposition/Present on Arrival - Present on Arrival Any Indicators Present on Arrival: No History of DVT/PE: No History of Uncontrolled Diabetes: No Urinary Catheter: No History of Decub. Ulcer: No History Surgical Site Infection Following: None - Disposition Have Diagnosis and Disposition been Completed?: Yes Diagnosis: Congestive heart failure (CHF), Chest pain Disposition: AGAINST MEDICAL ADVICE Disposition Time: 11:13 Patient Plan: Discharge Condition: SERIOUS Discharge Instructions (ExitCare): Heart Failure (ED), Chest Pain (ED), Heart Failure, Adult, Chest Pain (DC) Additional Instructions: you were treated in the ED today for history of COPD, HTN, HTN bleed, ESRD on dialysis with last past Friday, and was admitted 11/24/17 for new onset atrial fibrilliation which was converted and you signed out against medical advice the next day, with re-smoking and recurrent chest pain the past 2 days, on the left side with radiation to the left neck/head, associated with difficulty breathing and left lower leg swelling but otherwise without any nausea/vomiting/headache/ dizziness/abdomen pain/numbness/tingling/loss of limb function/pain with urination/travel/prior blood clots/prior cancer. You were otherwise breathing easily, pink moist lips, talking easily, good strength/sensation, alert/oriented , walking easily, clear lungs, no abdomen tenderness, no fever temp 98.6, stable heart rate 63, stable breathing rate 18, excellent oxygen level 100% on oxygen, elevated blood pressure 160/107 which we recommend repeat in 2-3 days primary care office to determine further treatment, you have blood tests no infection count 7, stable blood level hemoglobin 10/platelets 164, stable chemistry, elevated for potassium 5.1, elevated creatinine 6.8, elevated magnesium 2.4, heart blood test negative 0.02, heart failure test 57,000, radiology chest xray shows mild cardiomegaly, mild vascular and interstitial congestion, US LLE negative for DVT, ECG normal sinus rhythm, you already took x4 aspirin tabs on the way to ED, observation done in the ED with improvement, counselled to stop smoking, recommended to stay till in the hospital for further care/admission but you refused and cautioned for complications/. you stated you will followup with your primary care doctor today. if any worsening symptoms for anything return to the hospital right away. Referrals: Carlos Eduardo Resendiz MD [Primary Care Provider] - Follow up with primary Forms: [employer] (Persian)
[2017-12-01 08:24] LABS: BASO # 0.01 K/mm3 (0.0-2.0); BASO % 0.1 % (0.0-3.0); EOS # 0.1 (0.0-0.7); EOS % 1.9 % (1.5-5.0); GRAN # 5.66 (1.4-6.5); GRAN % 78.1 % (50.0-68.0); HEMOGLOBIN 10.3 g/dL (12.0-16.0); LYMPH # 1.1 (1.2-3.4); LYMPH % 14.5 % (22.0-35.0); MEAN CELL VOLUME 97.6 fl (80.0-105.0); MEAN CORPUSCULAR HEMOGLOBIN 30.9 pg (25.0-35.0); MEAN CORPUSCULAR HGB CONC 31.7 g/dl (31.0-37.0); MEAN PLATELET VOLUME 10.9 fl (7.0-11.0); MONO # 0.4 (0.1-0.6); MONO % 5.4 % (1.0-6.0); RBC 3.33 10^6/uL (3.5-6.1); RED CELL DISTRIBUTION WIDTH 13.5 % (11.5-14.5); WHITE BLOOD COUNT 7.3 10^3/ul (4.5-11.0)
[2017-12-01 08:33] LABS: INR 1.03 (0.93-1.08); PARTIAL THROMBOPLASTIN TIME 29.3 Seconds (25.1-36.5); PROTHROMBIN TIME 11.9 SECONDS (9.4-12.5)
[2017-12-01 08:34] LABS: ALB/GLOB RATIO 1.3 (1.1-1.8); ALBUMIN 3.8 g/dL (3.0-4.8); CALCIUM 8.5 mg/dL (8.4-10.5); MAGNESIUM 2.4 mg/dL (1.7-2.2)
[2017-12-01 08:42] LABS: TROPONIN I 0.02 ng/mL
--- NOTE | 2017-12-01 09:30 | US ---
PROCEDURE: Left lower extremity venous US HISTORY: Leg pain and swelling. Evaluate for DVT. PHYSICIAN(S): Gurmeet Ho MD. TECHNIQUE: Duplex sonography and color-flow Doppler with graded compression were used to evaluate the deep venous system of the left lower extremity. FINDINGS: The visualized deep venous system of the left lower extremity is sonographically normal and compressible. Normal wave forms and augmentation are seen. There is no sonographic evidence for deep venous thrombosis in the visualized segments of the left lower extremity. IMPRESSION: 1. No sonographic evidence for deep venous thrombosis in the visualized segments of the left lower extremity.
--- NOTE | 2017-12-01 09:34 | RAD ---
HISTORY: 57F, sob COMPARISON: 11/24/2017 FINDINGS: LUNGS: No active pulmonary disease. PLEURA: No significant pleural effusion identified, no pneumothorax apparent. CARDIOVASCULAR: Mild cardiomegaly. Mild vascular and interstitial congestion OSSEOUS STRUCTURES: No significant abnormalities. VISUALIZED UPPER ABDOMEN: Normal. OTHER FINDINGS: None. IMPRESSION: Mild cardiomegaly. Mild vascular and interstitial congestion
--- NOTE | 2017-12-01 11:05 | CARD ---
APPROVED REPORT EKG Measurement Heart [id number] <Conclusion> Normal sinus rhythm Possible Left atrial enlargement
[2017-12-01 11:28] VITALS: BP 148/72; PULSE 72; RESP 16; O2SAT 99
== END 2017-12-01 11:28 | disposition left against medical advice (07) ==
LOC: ED 07:33
DX: I13.2 Hypertensive heart and chronic kidney disease with heart failure and with stage 5 chronic kidney disease, or end stage renal disease (principal); I50.9 Heart failure, unspecified; N18.6 End stage renal disease; R07.9 Chest pain, unspecified; D64.9 Anemia, unspecified; Z99.2 Dependence on renal dialysis; Z87.891 Personal history of nicotine dependence

== ENCOUNTER 2017-12-02 17:29 | Inpatient (IN) | payer MEDICAID ==
[2017-12-02 17:37] VITALS: BMI 21.9
--- NOTE | 2017-12-02 18:25 | ED PDOC ---
Arrival/HPI - General Chief Complaint: Shortness Of Breath Time Seen by Provider: 12/02/17 17:46 Historian: Patient - History of Present Illness Narrative History of Present Illness (Text): you were treated in the ED today for hx of ESRD with HD from [facility], was seen yesterday for chest pain and signed out AMA, and today recurrent chest pain after HD with difficulty breathing but otherwise without any nausea/ vomiting/headache/dizziness/abdomen pain/numbness/tingling/loss of limb function /pain with urination. 12/02/17 18:21 Time/Duration: 1-3 hours Symptom Onset: Gradual Symptom Course: Unchanged Quality: Aching Severity Level: 1 Activities at Onset: Rest Context: Sitting Past Medical History - Provider Review Nursing Documentation Reviewed: Yes - Travel History Have you recently traveled outside [place] w/in the past 3 mons?: No - Past History Past History: Non-Contributing - Infectious Disease Hx of Infectious Diseases: None - Tetanus Immunization Tetanus Immunization: Unknown - Cardiac Hx Cardiac Disorders: Yes (mi 2014) Hx Angina: Yes Hx Congestive Heart Failure: Yes Hx Hypertension: Yes Hx Pacemaker: No Hx Peripheral Edema: Yes - Pulmonary Hx Respiratory Disorders: Yes Hx Chronic Obstructive Pulmonary Disease (COPD): Yes Hx Pneumonia: Yes - Neurological Hx Neurological Disorder: Yes (headaches) HX Cerebrovascular Accident: Yes Other/Comment: syncope, brain aneurysm - HEENT Hx HEENT Disorder: Yes (eyeglasses) - Renal Hx Dialysis: Yes - Endocrine/Metabolic Hx Endocrine Disorders: Yes Hx Hypothyroidism: Yes - Hematological/Oncological Hx Blood Disorders: Yes Hx Anemia: Yes (blood transfusion 2013) - Integumentary Hx Dermatological Disorder: Yes (chronic body itch) - Musculoskeletal/Rheumatological Hx Falls: Yes - Gastrointestinal Hx Gastrointestinal Disorders: Yes Hx Gastroesophageal Reflux: Yes - Genitourinary/Gynecological Hx Genitourinary Disorders: No - Psychiatric Hx Anxiety: Yes Hx Emotional Abuse: No Hx Panic Disorder: Yes Hx Physical Abuse: No Hx Substance Use: No - Past Surgical History Past Surgical History: Unable to Obtain - Surgical History Hx Cardiac Catheterization: Yes Other/Comment: brain aneurysm with sx. right chest wall fistula x3,. cardiac cath today 05/20/16. Fistula placed in R arm x2 - Anesthesia Hx Anesthesia: Yes Hx Anesthesia Reactions: Yes Hx Malignant Hyperthermia: No - Suicidal Assessment Feels Threatened In Home Enviroment: No Family/Social History - Physician Review Nursing Documentation Reviewed: Yes Family/Social History: No Known Family HX Smoking Status: Former Smoker Hx Alcohol Use: No Hx Substance Use: No Hx Substance Use Treatment: No Allergies/Home Meds Allergies/Adverse Reactions: Allergies Penicillins Allergy (Verified 12/02/17 17:37) ANAPHYLAXIS Home Medications: Home Meds Medication Instructions Recorded Confirmed ALPRAZolam [Xanax] 1 mg PO QID 08/19/13 12/02/17 Docusate [Colace] 100 mg PO DAILY PRN 02/07/15 12/02/17 Spironolactone 25 mg PO BID 02/07/15 12/02/17 Zolpidem Tartrate [Ambien] 10 mg PO HS 02/07/15 12/02/17 cloNIDine [clonidine HCl] 0.1 mg PO BID 02/07/15 12/02/17 Albuterol Sulfate [Proair Hfa] 0.09 mg IH Q4H PRN 01/23/16 12/02/17 Calcium Acetate [Phoslo] 667 mg PO TID 01/23/16 12/02/17 Hydralazine HCl 100 mg PO QID 01/23/16 12/02/17 Omeprazole [Prilosec] 40 mg PO DAILY 01/23/16 12/02/17 oxyCODONE [oxyCODONE Immediate 30 mg PO Q4H PRN 01/23/16 12/02/17 Release Tab] Sevelamer [Renagel] 800 mg PO TID 03/14/16 12/02/17 Review of Systems - Review of Systems Constitutional: Normal Eyes: Normal ENT: Normal Respiratory: SOB Cardiovascular: Chest Pain Gastrointestinal: Normal Genitourinary Female: Normal Musculoskeletal: Normal Skin: Normal Neurological: Normal Endocrine: Normal Hemo/Lymphatic: Normal Psychiatric: Normal Physical Exam Vital Signs Reviewed: Yes Vital Signs Temp Pulse Resp BP Pulse Ox 12/02/17 17:54 98.3 F 96 H 22 182/114 H 100 12/02/17 17:42 106 H 25 H 203/121 H 91 L Temperature: Afebrile Blood Pressure: Hypertensive Pulse: Regular Respiratory Rate: Normal Appearance: Positive for: Well-Appearing Pain Distress: None Mental Status: Positive for: Alert and Oriented X 3 - Systems Exam Head: Present: Atraumatic, Normocephalic Pupils: Present: PERRL Extroacular Muscles: Present: EOMI Conjunctiva: Present: Normal Ears: Present: Normal Mouth: Present: Moist Mucous Membranes Pharnyx: Present: Normal Nose (External): Present: Atraumatic Nose (Internal): Present: Normal Inspection Neck: Present: Normal Range of Motion Respiratory/Chest: Present: Clear to Auscultation, Good Air Exchange Cardiovascular: Present: Regular Rate and Rhythm Abdomen: No: Tenderness, Distention, Normal Bowel Sounds, Peritoneal Signs, Rebound, Guarding, McBurney's Point Tender, Rovsing's Sign Present, Hernias, Feeding Tubes, Ostomy Tubes, Mass/Organomegaly, Scars, Other Back: Present: Normal Inspection Upper Extremity: Present: Normal Inspection, Other (RUE w thrill) Lower Extremity: Present: Normal Inspection Neurological: Present: GCS=15, CN II-XII Intact, Speech Normal, Motor Func Grossly Intact Skin: Present: Warm, Normal Color Psychiatric: Present: Alert, Oriented x 3, Normal Insight, Normal Concentration Medical Decision Making ED Course and Treatment: you were treated in the ED today for hx of ESRD with HD from [facility], was seen yesterday for chest pain and signed out AMA, and today recurrent chest pain after HD with difficulty breathing but otherwise without any nausea/ vomiting/headache/dizziness/abdomen pain/numbness/tingling/loss of limb function /pain with urination. You were otherwise breathing easily, pink moist lips, talking easily, good strength/sensation, alert/oriented, walking easily, clear lungs, no abdomen tenderness, no fever temp 98.3, fast heart rate 106, stable breathing rate 25, low oxygen level 91% room air, elevated blood pressure 203/ 121 which we recommend repeat in 2-3 days primary care office to determine further treatment, you have blood tests no infection count 12.4, stable blood level hemoglobin /platelets 10/173, potassium 5.1, creatinine elevation 7.8, heart blood test 0.03 negative, radiology chest xray mild interstitial prominence edema vs infection with b/l small pleural effusions, ECG sinus tachycardia, d/w Dr. Resendiz who stated can get lactic, cultures, doxycycline 100mg iv, ct chest and he will followup and admit to the telemetry. 12/02/17 18:23 12/02/17 18:24 12/02/17 19:11 12/02/17 19:12 12/02/17 20:18 12/02/17 20:27 12/02/17 20:28 Reassessment Condition: Re-examined, Improved - Lab Interpretations Lab Results: 12/02/17 19:06 12/02/17 19:06 Lab Results 12/02/17 19:06: Sodium 140, Potassium 5.1 H, Chloride 103, Carbon Dioxide 24, Anion Gap 18, BUN 51 H, Creatinine 7.8 H*, Est GFR ( Amer) 6, Est GFR ( Non-Af Amer) 5, Random Glucose 104, Calcium 8.6, Magnesium 2.4 H, Total Bilirubin 0.6, AST 25, ALT 35, Alkaline Phosphatase 86, Lactate Dehydrogenase 417, Total Creatine Kinase 55, Troponin I 0.03 D, Total Protein 6.7, Albumin 3.7, Globulin 3.0, Albumin/Globulin Ratio 1.2 12/02/17 19:06: PT 12.2, INR 1.07, APTT 30.3 12/02/17 19:06: WBC 12.4 H D, RBC 3.34 L, Hgb 10.4 L, Hct 32.5 L, MCV 97.3, MCH 31.1, MCHC 32.0, RDW 13.9, Plt Count 173, MPV 10.7, Gran % 92.1 H, Lymph % (Auto ) 4.0 L, Giles % (Auto) 2.9, Eos % (Auto) 0.9 L, Baso % (Auto) 0.1, Gran # 11.38 H, Lymph # (Auto) 0.5 L, Giles # (Auto) 0.4, Eos # (Auto) 0.1, Baso # (Auto) 0.01 , Neutrophils % (Manual) 93 H, Lymphocytes % (Manual) 5 L, Monocytes % (Manual) 2, Platelet Evaluation Normal, Hypochromasia Slight, Anisocytosis (manual) Slight I have reviewed the lab results: Yes - RAD Interpretation Radiology Orders: 12/02/17 18:20 CHEST PORTABLE [RAD] Stat Theater Projectionist: Radiologist (see mdm) - EKG Interpretation Interpreted by ED Physician: Yes (sinus tachycardia) Type: 12 lead EKG - Medication Orders Current Medication Orders: Discontinued Medications Aspirin (Aspirin) 325 mg PO STAT STA Stop: 12/02/17 18:20 Disposition/Present on Arrival - Present on Arrival Any Indicators Present on Arrival: No History of DVT/PE: No History of Uncontrolled Diabetes: No Urinary Catheter: No History of Decub. Ulcer: No History Surgical Site Infection Following: None - Disposition Have Diagnosis and Disposition been Completed?: Yes Diagnosis: Congestive heart failure (CHF) Disposition: HOSPITALIZED Disposition Time: 20:30 Patient Plan: Admission, Telemetry Condition: STABLE Discharge Instructions (ExitCare): Heart Failure (ED), Heart Failure, Adult Referrals: Carlos Eduardo Resendiz MD [Primary Care Provider] - Follow up with primary Forms: [employer] ([place])
--- NOTE | 2017-12-02 18:47 | RAD ---
HISTORY: chest pain COMPARISON: Chest x-ray performed 12/01/17 TECHNIQUE: Chest, one view. FINDINGS: LUNGS: Mild interstitial prominence may reflect infection or edema. Small bilateral pleural effusions. No definite pneumothorax. Please note that chest x-ray has limited sensitivity for the detection of pulmonary masses. CARDIOVASCULAR: Cardiomegaly. Atherosclerotic calcification of the aorta. OSSEOUS STRUCTURES: Degenerative changes. VISUALIZED UPPER ABDOMEN: Unremarkable. OTHER FINDINGS: None. IMPRESSION: Mild interstitial prominence may reflect infection or edema. Small bilateral pleural effusions. Cardiomegaly. Atherosclerotic calcifications.
[2017-12-02 19:19] LABS: BASO # 0.01 K/mm3 (0.0-2.0); BASO % 0.1 % (0.0-3.0); EOS # 0.1 (0.0-0.7); EOS % 0.9 % (1.5-5.0); GRAN # 11.38 (1.4-6.5); GRAN % 92.1 % (50.0-68.0); HEMOGLOBIN 10.4 g/dL (12.0-16.0); LYMPH # 0.5 (1.2-3.4); MEAN CELL VOLUME 97.3 fl (80.0-105.0); MEAN CORPUSCULAR HEMOGLOBIN 31.1 pg (25.0-35.0); MEAN PLATELET VOLUME 10.7 fl (7.0-11.0); MONO # 0.4 (0.1-0.6); MONO % 2.9 % (1.0-6.0); PLATELET COUNT 173 10^3/uL (120.0-450.0); RBC 3.34 10^6/uL (3.5-6.1); RED CELL DISTRIBUTION WIDTH 13.9 % (11.5-14.5); WHITE BLOOD COUNT 12.4 10^3/ul (4.5-11.0)
[2017-12-02 19:33] LABS: ALB/GLOB RATIO 1.2 (1.1-1.8); ALBUMIN 3.7 g/dL (3.0-4.8); CALCIUM 8.6 mg/dL (8.4-10.5); INR 1.07 (0.93-1.08); MAGNESIUM 2.4 mg/dL (1.7-2.2); PARTIAL THROMBOPLASTIN TIME 30.3 Seconds (25.1-36.5); PROTHROMBIN TIME 12.2 SECONDS (9.4-12.5)
[2017-12-02 19:49] LABS: TROPONIN I 0.03 ng/mL
[2017-12-02 20:04] LABS: ANISOCYTOSIS SLIGHT; HYPOCHROMIA SLIGHT; LYMPHOCYTE 5 % (22.0-35.0); MONOCYTE 2 % (1.0-6.0); NEUTROPHIL 93 % (50.0-70.0); PLATELET ESTIMATE NORMAL (NORMAL)
[2017-12-02 23:36] LABS: VENOUS BLOOD GAS BASE EXCESS -4.5 mmol/L (0.0-2.0); VENOUS BLOOD GAS PO2 45 mm/Hg (30-55); VENOUS BLOOD PH 7.33 (7.32-7.43)
[2017-12-03] MEDS ORDERED: Albuterol-Ipratrop 3 mg / 0.5 (3 ml) UD IH PRN (01:32)
[2017-12-03] MEDS: Pantoprazole 40 mg EC Tab PO SCH (04:59)
[2017-12-03] MEDS: Albuterol-Ipratrop 3 mg / 0.5 (3 ml) UD IH SCH ×4 (07:50→20:00)
--- NOTE | 2017-12-03 09:08 | CARD ---
APPROVED REPORT EKG Measurement Heart [id number] <Conclusion> Sinus tachycardia Possible Left atrial enlargement Poor R Progression V1-V3. High Voltage-LVH.
--- NOTE | 2017-12-03 09:17 | CT ---
PROCEDURE: CT Chest without contrast HISTORY: 57yoF, chest pain/sob COMPARISON: None. TECHNIQUE: Contiguous axial images were obtained through the chest without intravenous contrast enhancement. Sagittal and coronal reconstructions were performed. Radiation dose (DLP): 178 mGy-cm. This CT exam was performed using one or more of the following dose reduction techniques: Automated exposure control, adjustment of the mA and/or kV according to patient size, and/or use of iterative reconstruction technique. FINDINGS: LUNGS: Bibasilar infiltrates are seen with air bronchograms. Small pleural effusions are also seen. A small lesion is seen in the trachea which may represent some retained mucus. It is less likely to represent a solid lesion. This measures 7 mm in diameter and is seen on image 36 series 3 MEDIASTINUM: Unremarkable thoracic aorta. No aneurysm. Normal sized heart. Main pulmonary artery unremarkable. No vascular congestion. No lymphadenopathy. PLEURA: Small pleural effusions. BONES: No fracture. No destructive lesion. UPPER ABDOMEN: Grossly unremarkable. OTHER FINDINGS: None. IMPRESSION: Bibasilar infiltrates and small effusions. Findings suspicious for pneumonia
[2017-12-03] MEDS: Aztreonam 1 Gm in NS 100mL 100 ML IVPB SCH ×3 (09:45→21:33)
[2017-12-03] MEDS: Linezolid 600 mg in D5W 300 ml 600 MG/300 ML BAG IVPB SCH ×2 (10:00→21:34)
[2017-12-03 11:16] LABS: HDL CHOLESTEROL 42 mg/dL (29-60)
[2017-12-03 11:27] LABS: LDL CHOLESTEROL 82 mg/dL (0-129)
[2017-12-03 11:57] LABS: GRAN # 9.99 (1.4-6.5); GRAN % 89.4 % (50.0-68.0); HEMOGLOBIN 10.4 g/dL (12.0-16.0); LYMPH # 0.6 (1.2-3.4); LYMPH % 5.5 % (22.0-35.0); MEAN CELL VOLUME 96.7 fl (80.0-105.0); MEAN CORPUSCULAR HEMOGLOBIN 30.8 pg (25.0-35.0); MEAN CORPUSCULAR HGB CONC 31.8 g/dl (31.0-37.0); MEAN PLATELET VOLUME 11.7 fl (7.0-11.0); MONO # 0.6 (0.1-0.6); MONO % 5.1 % (1.0-6.0); RBC 3.38 10^6/uL (3.5-6.1); RED CELL DISTRIBUTION WIDTH 13.7 % (11.5-14.5); WHITE BLOOD COUNT 11.2 10^3/ul (4.5-11.0)
[2017-12-03 12:24] LABS: ALB/GLOB RATIO 1.2 (1.1-1.8); ALBUMIN 3.6 g/dL (3.0-4.8); CALCIUM 8.8 mg/dL (8.4-10.5); MAGNESIUM 2.4 mg/dL (1.7-2.2)
--- NOTE | 2017-12-03 15:37 | CP.PCM.PCO ---
Physician Communication Note - Physician Communication Note Physician Communication Note: pt in echo - reviewed CT chest - PNA - started abx , will see tomorrow
--- NOTE | 2017-12-03 21:12 | CON ---
DATE: REASON FOR THE CONSULTATION: Followup cardiac evaluation, chest pain, shortness of breath; end-stage renal disease, on dialysis; nonobstructive coronary artery disease, status post cardiac catheterization in the past. BRIEF CLINICAL HISTORY: This is a 57-year-old female with past medical history significant for hypertension, hyperlipidemia, end-stage renal disease, on dialysis, who recently admitted, came on 11/25/2017 and signed out AMA. At that time, the patient missed the dialysis one week, admitted with the chest pain. Now the patient states that now she is having dialysis, still feels some chest pain, so came to the emergency room, feels that something catching with breath and something on her back and then she develops chest pain. PAST MEDICAL HISTORY: Significant for congestive heart failure, history of thyroid mass, history of cardiomegaly, history of renal insufficiency, started on dialysis in August 2017. Previous cardiac workup as follows. The patient had a cardiac catheterization done on that revealed nonobstructive coronary artery disease, limited only to diagonal 2 with 70% stenosis, preserved LV function, ejection fraction 55%, EDP was in the range of 20. Detail of the cardiac catheterization as follows: Coronary anatomy is right-sided dominant, left main essentially free of significant disease LAD and circumflex. LAD has calcification noted throughout the vessels, large caliber vessels, 20% stenosis noted, but diagonal 2 has 70% stenosis, very small caliber vessel, not suitable for PCI. Circumflex is medium-sized vessels, calcification noted throughout, 30% stenosis noted. Right coronary arteries are dominant, very large caliber vessels, essentially free of significant disease. Ejection fraction 55%. The patient had a MUGA scan done on 07/19/2014 that showed preserved LV function. Repeat echocardiogram on ejection fraction 65%, moderate mitral regurgitation, systolic pressure is 70. 1999 The patient underwent MUGA scan on that showed preserved LV function. Repeat echo on 15, ejection fraction is 65%, moderate MR, moderate TR, RV systolic pressure 7*. PAST SURGICAL HISTORY: Significant for CT-guided biopsy and a shunt in the right arm. SOCIAL HISTORY: Significant for smoking, claimed that quit smoking, but every now and then smokes a little bit. Denies any history of alcohol abuse. FAMILY HISTORY: Significant for coronary artery disease and hypertension. CURRENT MEDICATIONS: The patient is taking at home oxycodone, clonidine, Ambien, spironolactone, Renagel, omeprazole, labetalol, hydralazine, calcium, albuterol, alprazolam. REVIEW OF SYSTEMS: As per HPI. PHYSICAL EXAMINATION: As follows: VITAL SIGNS: Temperature afebrile, heart rate 58, blood pressure 187/103. HEENT: PERRLA. Extraocular muscles intact. NECK: Supple. No carotid bruits or thyromegaly. CHEST: Clear to auscultation. HEART: S1 and S2 regular. ABDOMEN: Soft. EXTREMITIES: Clubbing and cyanosis negative. LABORATORY DATA: Blood workup as follows: WBC 12.5, hemoglobin 10.4, hematocrit 32.5, platelet count 173. Chemistry shows sodium 140, potassium 5.1, chloride 103, carbon dioxide 24, anion gap of 18, BUN , creatinine is . Troponin 0.02. IMPRESSION: Atypical chest pain status post cardiac catheterization major epicardial left anterior descending, circumflex significant disease, a small diagonal 2 has some disease, nonobstructive, preserved left ventricular function, mitral regurgitation, tricuspid regurgitation, end-stage disease, on dialysis, hypertension, hyperlipidemia. RECOMMENDATIONS: We will get echo to assess LV function. Resume antihypertensive medication, aggressively treat for high blood pressure. We will follow with you. Thank you Dr. Resendiz for providing us the opportunity in taking care of the patient, Charla Ledesma. We will follow with you. Chloe Smallwood MD
[2017-12-03] MEDS: MethylPREDNISolone 40 mg Vial IVP SCH (21:33)
--- NOTE | 2017-12-04 00:39 | CON ---
DATE: PULMONARY CONSULTATION REFERRING PHYSICIAN: Dr. Resendiz. REASON FOR CONSULTATION: Cough, shortness of breath, chronic lung disease, pneumonia. HISTORY OF PRESENT ILLNESS: This is a 57-year-old female with past medical history significant for renal failure, dialysis dependent; chronic obstructive lung disease, who was seen a day before with some chest pain, signed against medical advice and left, comes back in emergency room with headache, body aches and pains, cough, shortness of breath, palpitation, admitted for further workup. Presently, she is having dialysis. No nausea, no vomiting. No diarrhea, leg pain or leg swelling. PAST MEDICAL HISTORY: Renal failure, dialysis dependent; chronic obstructive lung disease; history of TN; congestive heart failure; hypertension; history of pneumonias in the past; chronic headaches; CVA; hypothyroid; anemia; also anxiety. FAMILY HISTORY: No significant cardiopulmonary disease reported. SOCIAL HISTORY: Stopped smoking a few years ago. Denies any alcohol use. ALLERGIES: TO PENICILLIN, GET ANAPHYLAXIS. MEDICATIONS: She is on Ambien 10 mg at bedtime, hydralazine 10 mg four times a day p.r.n. Azactam 1 g IV q. 8 hours, clonidine 0.1 mg twice a day, Colace 100 mg daily p.r.n., doxycycline 100 mg twice a day, DuoNeb q. 4 hours p.r.n. and DuoNeb four times a day around the clock, Ecotrin 81 mg daily, oxycodone immediate release 30 mg q. 4 hours p.r.n., Protonix 40 mg daily, Renagel 800 mg with the meals, labetalol 400 mg q. 8 hours, Xanax 1 mg four times a day, also Zyvox 600 mg q. 12 hours. REVIEW OF SYSTEMS: Has some chronic headache, not much rhinitis. Has cough, shortness of breath, body aches and pain. No nausea, no vomiting, no diarrhea. No leg pain or leg swelling. PHYSICAL EXAMINATION: GENERAL: Lying in the bed, on dialysis chair, in no acute distress. VITAL SIGNS: Temperature is 98, heart rate is 65, respiratory rate is 20, blood pressure 178/94, pulse ox 97% on nasal cannula. HEENT: Small oral cavity. Crowded airway. NECK: Supple. No JVD. LUNGS: Has a few crackles, scattered rhonchi and wheezing. HEART: S1 and S2. ABDOMEN: Soft, nontender. No organomegaly. EXTREMITIES: No edema. NEUROLOGIC: Awake and alert, follows simple command. LABORATORY DATA: Shows hemoglobin 10.4, hematocrit 32.7, WBC 11.2, platelet is 176. INR 1.07. PTT is 30. Blood gases show, which is VBG, pH 7.33, pCO2 is 40, O2 to is 45, that is on room air. Sodium 139, potassium 4.5, chloride 104, bicarbonate 19, BUN 60, creatinine 8.2, glucose 135, calcium 8.8, magnesium 2.4, AST 18, ALT 27, alk phos is 63. Albumin 3.6. Influenza swab test is negative. CAT scan of the chest shows bibasilar infiltrate, probably pneumonia. Echocardiogram done, report is pending. IMPRESSION AND PLAN: Chronic obstructive lung disease, may have pneumonia, probable trigger could be viral; renal failure, dialysis dependent; anxiety disorder. I agree with Dr. Resendiz with the present management. Influenza is negative. May send nasal swab for respiratory syncytial virus, Legionella and mycoplasma testing. Add intravenous Solu-Medrol, continue inhaled bronchodilator. Thank you and we will follow with you. Chloe Moran MD
--- NOTE | 2017-12-04 01:12 | CON ---
DATE: 12/03/2017 REASON FOR CONSULTATION: Need for dialysis, shortness of breath, CHF, hyperkalemia. HISTORY OF PRESENT ILLNESS: A 57-year-old lady known to me from outpatient hemodialysis, presented to the emergency room last night with complaints of shortness of breath, cough, chest tightness, chest pressure. Patient was in the emergency room on Friday last week also with similar complaints, she was again in the emergency room on Friday, but she signed out AMA. She reports that she has no fever. No chills. No abdominal pain. No nausea or vomiting. She denies any other complaints. In the emergency room, she was found to have blood pressure of 203/121, heart rate of 106. Her WBC count was elevated at 12.4, her potassium was 5.1. Her troponin first set was negative at 0.03. This morning, her potassium is 5.5. Her WBC count is still elevated at 11. Her chest x-ray showed cardiomegaly with mild interstitial prominence and small bilateral pleural effusions. CT of her chest showed this morning bibasilar infiltrates and small effusions, suspicious of pneumonia. Consultation is requested for urgent dialysis. PAST MEDICAL AND SURGICAL HISTORY: Hypertension, asthma, COPD, end-stage renal disease, noncompliance, anxiety, depression. FAMILY HISTORY: Hypertension, diabetes. SOCIAL HISTORY: No smoking, no alcohol use, no IV drug abuse. Lives with mom. ALLERGIES: PENICILLIN. MEDICATIONS AT HOME: Oxycodone 30 mg every 4 hours, clonidine 0.1 b.i.d., Ambien, Aldactone 25 b.i.d.?, Renagel 800, Prilosec, labetalol, hydralazine 100 q.i.d., Colace, PhosLo, ProAir, Ventolin, Xanax. REVIEW OF SYSTEMS: All systems are reviewed, pertinent positives as mentioned in history of presenting illness, rest unremarkable. PHYSICAL EXAMINATION: GENERAL: Elderly lady, lying in bed. VITAL SIGNS: Blood pressure 178/94, heart rate 65, respiratory rate 18, temperature 98.5. HEENT: Normocephalic, atraumatic. NECK: Supple, no JVD. LUNGS: Bilateral equal air entry, bilateral equal expansion, basilar rales. CARDIAC: S1, S2. Regular rate and rhythm. No murmur. No rub. ABDOMEN: Obese, distended, soft, nontender, bowel sounds present. EXTREMITIES: No lower extremity edema. LABORATORY DATA: WBC 11, hemoglobin 10.4, hematocrit 32, platelets 176. Sodium 135, potassium 5.5, chloride 104, CO2 19, BUN 60, creatinine 8.2, glucose 135, calcium 8.8, phosphorus 5.8, magnesium 2.4, albumin 3.6. CURRENT MEDICATIONS: List reviewed. ASSESSMENT: 1. Chest pain/shortness of breath, elevated white blood cell count, bilateral infiltrates?, ?pneumonia. 2. Mild decompensated congestive heart failure. 3. Severe hypertension, hypertensive heart disease. 4. End-stage renal disease. 5. Hyperkalemia. 6. Anemia of chronic disease. PLAN: 1. Urgent dialysis with a potassium 2 bath. 2. Increase ultrafiltration as tolerated. 3. Agree with empiric antibiotics for possible pneumonia. 4. Continue labetalol 400 q. 8, hydralazine 100 q. 6. 5. Continue phosphate binders. 6. Possible early discharge. Thank you for the courtesy of this consultation. . Kayleen Flores MD
[2017-12-04] MEDS: oxyCODONE 30 mg Immediate Release Tab PO PRN ×3 (04:54→13:42)
[2017-12-04] MEDS: Aztreonam 1 Gm in NS 100mL 100 ML IVPB SCH ×3 (05:01→21:27)
[2017-12-04] MEDS: Pantoprazole 40 mg EC Tab PO SCH (05:03)
[2017-12-04] MEDS: Albuterol-Ipratrop 3 mg / 0.5 (3 ml) UD IH SCH ×3 (07:46→19:43)
[2017-12-04 08:09] LABS: URINE BILIRUBIN NEGATIVE (NEGATIVE); URINE BLOOD TRACE-INTACT (NEGATIVE); URINE GLUCOSE (UA) NEGATIVE (NEGATIVE); URINE LEUKOCYTE ESTERASE SMALL Leu/uL (NEGATIVE); URINE NITRATE NEGATIVE (NEGATIVE); URINE PROTEIN TRACE mg/dL (<30 mg/dL); URINE UROBILINOGEN 0.2 E.U./dL (<1 E.U./dL)
--- NOTE | 2017-12-04 08:31 | PN ---
DATE: 12/03/2017 SUBJECTIVE: The patient in dialysis, doing okay. No chest pain. No shortness of breath. Seems comfortable. She had an echocardiogram done. Otherwise, no new complaint. PHYSICAL EXAMINATION: VITAL SIGNS: Temperature 98.5, heart rate 65, blood pressure 178/94, respirations 18. The patient is saturating 97% on room air. HEAD AND NECK: Normal. No JVD. No thyromegaly. CHEST: Clear. Good air entry. CARDIAC: First sound and second sound normal. ABDOMEN: Soft, nontender. EXTREMITIES: No edema. NEUROLOGIC: Normal. LABORATORY DATA: Laboratories noted for cholesterol, LDL 82, triglycerides 54, HDL 42. TSH 0.54, which is normal and procalcitonin is a little bit high 0.58. CBC shows white count 11.2, hemoglobin 10.4, hematocrit 32.7, platelets 176. Chemistry shows sodium 139, potassium 5.5, chloride 104, bicarb 19 and BUN is 60, creatinine 8.2, blood sugar 135, phosphorus 5.8, magnesium 2.4. Liver function test is normal. Albumin, globulin is normal. IMPRESSION AND PLAN: 1. Nosocomial pneumonia. Continue current therapy, antibiotics. The patient is getting Zyvox, getting Azactam and doxycycline. Continue current IV antibiotic. 2. Chronic obstructive lung disease with acute worsening. Continue IV steroid. Continue inhaled bronchodilators. Seems doing well. 3. Chest pain, cardiac, evaluations. The patient has a history of cardiac disease, coronary artery disease, stent placement. Echocardiogram has been done. The results pending. We will discuss with Dr. Smallwood. 4. Hypertension. Continue current medications. We will follow up with the Instructional Technology Director and that the patient is getting hydralazine 100 t.i.d., getting clonidine b.i.d., Diovan 320 and labetalol 400 three times a day. We will continue current therapy. We will follow up clinically. 5. Chronic renal failure. Continue hemodialysis. We will review the echo with the research animal attendant and we will follow up on that. Carlos Eduardo Resendiz MD
[2017-12-04 08:40] LABS: URINE APPEARANCE CLEAR (CLEAR); URINE COLOR YELLOW (YELLOW)
[2017-12-04 08:45] LABS: URINE AMORPHOUS SEDIMENT FEW; URINE BACTERIA MANY (NEG)
[2017-12-04] MEDS: MethylPREDNISolone 40 mg Vial IVP SCH ×2 (09:44→21:28)
[2017-12-04] MEDS: Linezolid 600 mg in D5W 300 ml 600 MG/300 ML BAG IVPB SCH ×2 (09:45→22:54)
--- NOTE | 2017-12-04 10:53 | CP.PCM.CON ---
History of Present Illness - History of Present Illness History of Present Illness: 57 year old female with PMH of ESRD on HD, chronic CHF with CAD, COPD, history of pneumonia, history of CVA, history of cerebral aneurysm came in to [facility] complaining of shortness of breath and chest discomfort for the past 3-4 days. She denies significant cough, no fever or chills, no headache or dizziness, no sore throat, no rhinorrhea, no abdominal pain, no dysphagia, no flank pain, no suprapubic pain, no diarrhea, no dysuria. In the ED, CT chest showed bibasilar infiltrates suggestive of pneumonia. Infectious diseases consult is requested to further evaluate and manage. Review of Systems - Review of Systems All systems: reviewed and no additional remarkable complaints except (as per HPI ) Past Patient History - Infectious Disease Hx of Infectious Diseases: None - Tetanus Immunizations Tetanus Immunization: Unknown - Past Medical History & Family History Past Medical History?: Yes - Past Social History Smoking Status: Former Smoker - CARDIAC Hx Cardiac Disorders: Yes (NE) Hx Angina: Yes Hx Congestive Heart Failure: Yes Hx Hypertension: Yes Hx Pacemaker: No Hx Peripheral Edema: Yes - PULMONARY Hx Respiratory Disorders: Yes Hx Chronic Obstructive Pulmonary Disease (COPD): Yes Hx Pneumonia: Yes - NEUROLOGICAL Hx Neurological Disorder: Yes (BRAIN ANEURSYM WITH SX) HX Cerebrovascular Accident: Yes - HEENT Hx HEENT Problems: Yes (eyeglasses) - RENAL Hx Chronic Kidney Disease: Yes Hx Dialysis: Yes (M,W,F) - ENDOCRINE/METABOLIC Hx Endocrine Disorders: No - HEMATOLOGICAL/ONCOLOGICAL Hx Blood Disorders: Yes Hx Anemia: Yes (blood transfusion 2013) - INTEGUMENTARY Hx Dermatological Problems: Yes - MUSCULOSKELETAL/RHEUMATOLOGICAL Hx Falls: No - GASTROINTESTINAL Hx Gastrointestinal Disorders: Yes Hx Gastroesophageal Reflux: Yes - GENITOURINARY/GYNECOLOGICAL Hx Genitourinary Disorders: No - PSYCHIATRIC Hx Substance Use: No - SURGICAL HISTORY Hx Surgeries: Yes Hx Cardiac Catheterization: Yes Other/Comment: brain aneurysm with sx. right chest wall fistula x3,. cardiac cath today 05/20/16. Fistula placed in R arm x2 - ANESTHESIA Hx Anesthesia: Yes Hx Anesthesia Reactions: Yes Hx Malignant Hyperthermia: No Meds Allergies/Adverse Reactions: Allergies Allergy/AdvReac Type Severity Reaction Status Date / Time Penicillins Allergy ANAPHYLAXIS Verified 12/02/17 17:37 - Medications Medications: Current Medications Albuterol/Ipratropium (Duoneb 3 Mg/0.5 Mg (3 Ml) Ud) 3 ml IH QIDRESP COUNTS INCLUDE 234 BEDS AT THE [facility] Last Admin: 12/03/17 07:50 Dose: 3 ml Albuterol/Ipratropium (Duoneb 3 Mg/0.5 Mg (3 Ml) Ud) 3 ml IH [id number] PRN PRN Reason: Shortness of Breath Last Admin: 12/03/17 01:55 Dose: 3 ml Alprazolam (Xanax) 1 mg PO QID COUNTS INCLUDE 234 BEDS AT THE [facility] PRN Reason: Protocol Aspirin (Ecotrin) 81 mg PO DAILY COUNTS INCLUDE 234 BEDS AT THE [facility] Calcium Acetate (Phoslo) 667 mg PO [facility] Last Admin: 12/03/17 08:53 Dose: 667 mg Clonidine HCl (Catapres) 0.1 mg PO BID COUNTS INCLUDE 234 BEDS AT THE [facility] Docusate Sodium (Colace) 100 mg PO DAILY PRN PRN Reason: Constipation Hydralazine HCl (Apresoline) 10 mg PO QID PRN PRN Reason: for sbp>170 Labetalol HCl (Trandate) 400 mg PO Q8 COUNTS INCLUDE 234 BEDS AT THE [facility] Last Admin: 12/03/17 05:00 Dose: 400 mg Oxycodone HCl (Oxycodone Immediate Release Tab) 30 mg PO Q4H PRN PRN Reason: Pain, severe (8-10) Pantoprazole Sodium (Protonix Ec Tab) 40 mg PO 0600 COUNTS INCLUDE 234 BEDS AT THE [facility] Last Admin: 12/03/17 04:59 Dose: 40 mg Sevelamer HCl (Renagel) 800 mg PO [facility] Last Admin: 12/03/17 08:53 Dose: 800 mg Zolpidem Tartrate (Ambien) 10 mg PO [facility] PRN Reason: Protocol Physical Exam - Constitutional Appears: Chronically Ill - Head Exam Head Exam: NORMAL INSPECTION - ENT Exam ENT Exam: Mucous Membranes Moist - Neck Exam Neck exam: Negative for: Meningismus - Respiratory Exam Respiratory Exam: Decreased Breath Sounds - Cardiovascular Exam Cardiovascular Exam: +S1, +S2 - GI/Abdominal Exam GI & Abdominal Exam: Soft. absent: Tenderness Results - Vital Signs Recent Vital Signs: Last Vital Signs Temp 97.7 F 12/03/17 05:15 Pulse 71 12/03/17 05:15 Resp 18 12/03/17 05:15 BP 187/103 H 12/03/17 05:15 Pulse Ox 99 12/03/17 05:15 - Labs Result Diagrams: 12/03/17 11:40 12/03/17 10:50 Labs: Laboratory Results - last 24 hr 12/02/17 12/02/17 21:00 23:15 pO2 45 VBG pH 7.33 VBG pCO2 40.0 VBG HCO3 21.1 VBG Total CO2 22.3 VBG O2 Sat (Calc) 88.1 H VBG Base Excess -4.5 L VBG Potassium 5.3 H Sodium 135.0 Chloride 105.0 Glucose 154 H Lactate 1.1 FiO2 21.0 Venous Blood Potassium 5.3 H Influenza Typ A,B (EIA) Negative for flu a/b Assessment & Plan - Assessment and Plan (Free Text) Plan: Assessment Consider sepsis due to bilateral healthcare-associated pneumonia with possible gram positive cocci and/or gram negative bacilli and/or atypical organisms ESRD on HD chronic CHF with CAD COPD history of pneumonia history of CVA history of cerebral aneurysm Plan started the patient on Zyvox, Aztreonam and Doxycycline pending blood cx ( negative so far); PCT is elevated at 0.58 rapid flu test is negative; follow up urine Legionella Ag, Mycoplasma tests will monitor clinically
--- NOTE | 2017-12-04 11:48 | CARD ---
APPROVED REPORT EXAM: Two-dimensional and M-mode echocardiogram with Doppler and color Doppler. INDICATION Chest Pain 2D DIMENSIONS Left Atrium (2D)4.2 (1.6-4.0cm)IVSd1.5 (0.7-1.1cm) LVDd5.3 (3.9-5.9cm)PWd1.6 (0.7-1.1cm) LVDs3.9 (2.5-4.0cm)FS (%) 26.4 % LVEF (%)51.4 (>50%) M-Mode DIMENSIONS Aortic Root2.90 (2.2-3.7cm)Aortic Cusp Exc.1.80 (1.5-2.0cm) Aortic Valve AoV Peak Jwjmbnqi966.0cm/Andrea Peak GR.9mmHg Mitral Valve MV E Podzsvhv707.0cm/sMV A Nhwydrmh13.3cm/sE/A ratio1.2 TDI E/Lateral E'0.0E/Medial E'0.0 Tricuspid Valve TR Peak [id number]/sRAP [id number] Peak Gr.16mmHg [id number] LEFT VENTRICLE The left ventricle is normal size. There is mild concentric left ventricular hypertrophy. The left ventricular function is low normal.EF-50-55% There is normal LV segmental wall motion. Transmitral Doppler flow pattern is Grade II-pseudonormal filling dynamics. No left ventricle thrombus noted on this study. There is no ventricular septal defect visualized. There is no left ventricular aneurysm. There is no mass noted in the left ventricle. RIGHT VENTRICLE The right ventricle is normal size. There is normal right ventricular wall thickness. The right ventricular systolic function is normal. ATRIA The left atrium is mildly dilated. The right atrium size is normal. The interatrial septum is intact with no evidence for an atrial septal defect. AORTIC VALVE The aortic valve is thickened but opens well. There is trace to mild aortic regurgitation. There is no aortic valvular stenosis. There is no aortic valvular vegetation. MITRAL VALVE The mitral valve is thickened but opens well. Mitral regurgitation is mild to moderate. There is no mitral valve stenosis. There is no evidence of mitral valve prolapse. TRICUSPID VALVE The tricuspid valve leaflets are thickened , but open well. There is mild tricuspid regurgitation.RVSP-26 mmof h g. There is no tricuspid valve stenosis. There is no tricuspid valve prolapse or vegetation. PULMONIC VALVE The pulmonary valve is normal in structure. There is no pulmonic valvular regurgitation. There is no pulmonic valvular stenosis. GREAT VESSELS The aortic root is normal in size. The ascending aorta is normal in size. The pulmonary artery is normal. The IVC is dilated. PERICARDIAL EFFUSION There is small left pleural effusion. There is no pericardial effusion. <Conclusion> The left ventricle is normal size. There is mild concentric left ventricular hypertrophy. The left ventricular function is low normal.EF-50-55% There is trace to mild aortic regurgitation. Mitral regurgitation is mild to moderate. There is mild tricuspid regurgitation.RVSP-26 mmof h g. There is small left pleural effusion. There is no pericardial effusion.
--- NOTE | 2017-12-04 13:58 | PN ---
DATE: REFERRING PHYSICIAN: Dr. Resendiz. REASON FOR CONSULTATION: Followup chest pain, cardiac evaluation, end-stage renal disease, on dialysis; status post nonobstructive coronary artery disease. The patient is still complaining of chest pain. PHYSICAL EXAMINATION As follows: VITAL SIGNS: Temperature afebrile, heart rate 53, blood pressure 140/73. HEENT: PERRLA intact. NECK: Supple. No carotid bruits. No thyromegaly. CHEST: Clear to auscultation. Tenderness on the left side of the chest noted. HEART: S1 and S2 regular. ABDOMEN: Soft. EXTREMITIES: Clubbing and cyanosis negative. LABORATORY DATA: Blood work as follows: WBC 11.8, hemoglobin 10.4, hematocrit 32.7, platelet count 176. Chemistry shows sodium 130, potassium 5.5, chloride 104, carbon dioxide 19, anion gap of 22. BUN 60, creatinine 8.2. The patient had a repeat echocardiography done yesterday does shows normal ejection fraction 50 to 55%, trace pericardial effusion, a small left pleural effusion, [id number] mitral regurgitation, mild tricuspid regurgitation, no evidence of acute FL, history of coronary artery disease, status post cardiac catheterization; nonobstructive coronary artery only limited to diagonal 2 small caliber vessels, major epicardial vessels, LAD, circumflex, RCA essentially free of significant disease, end-stage renal disease, on dialysis; hypertension, chest pain, musculoskeletal, atypical; left pleural effusion, possibly early pneumonia. RECOMMENDATIONS: Continue broad-spectrum antibiotics. I will give ibuprofen, hydralazine p.r.n. Continue Valsartan. We will discontinue telemetry. We will give 600 mg p.o. [address] Resendiz for providing me the opportunity in taking care of Baltazar Dunham. No further cardiac workup is planned or warranted. Chloe Smallwood MD
--- NOTE | 2017-12-04 19:15 | PN ---
DATE: 12/04/2017 SUBJECTIVE: Patient is seen sitting in bed. She is awake. She is alert. She is comfortable. She does not have any cough. She does not have any fever. She complains of chest tightness. She complains of shortness of breath. PHYSICAL EXAMINATION: GENERAL: Middle-aged lady, sitting in bed. VITAL SIGNS: Blood pressure 177/96, heart rate 61, respiratory rate 18, temperature 97.4. HEENT: Normocephalic, atraumatic, positive pallor. NECK: Supple, no JVD. LUNGS: Bilateral equal air entry, bilateral equal expansion, basilar rales. CARDIAC: S1, S2. Regular rate and rhythm. No murmur, no rub. ABDOMEN: Soft, nondistended, nontender, bowel sounds present. EXTREMITIES: No lower extremity edema. INTAKE AND OUTPUT: 2140/not charted. LABORATORY DATA: WBC 11, hemoglobin 10, hematocrit 33, platelets 176. Sodium 139, potassium 5.5, chloride 104, CO2 19, BUN 60, creatinine 8.2, glucose 135, calcium 8.8, phosphorus 5.8, magnesium 2.4. This was chemistry from yesterday. Cultures, no growth. CURRENT MEDICATIONS: Ambien, Apresoline 100 t.i.d., Azactam 1 g q. 8, Catapres 0.1 b.i.d., Colace, Diovan 320, doxycycline 100 q. 12, Motrin, Percocet, PhosLo, Protonix, Solu-Medrol, Trandate 400 q. 8, Xanax, Zofran, Zyvox. ASSESSMENT: 1. Bilateral pneumonia. 2. Severe hypertension. 3. Left ventricular hypertrophy. 4. End-stage renal disease. 5. Anemia. 6. Secondary hyperparathyroidism. PLAN: 1. Patient had stable dialysis yesterday. 2. Continue antibiotics for multilobar pneumonia. 3. Continue ibuprofen for pain as per Cardiology. 4. Continue phosphate binders. 5. Increase clonidine to 0.1 mg three times a day. Kayleen Flores MD
--- NOTE | 2017-12-04 19:57 | HP ---
REASON FOR ADMISSION: Chest pain, short of breath, and cough. HISTORY OF PRESENT ILLNESS: A 57-year-old female with history of chronic renal failure, on hemodialysis; COPD; hypertension, poorly controlled; came in with chest discomfort, left-sided, sharp pain, has been having these on and off for a few days. She came in also with short of breath and cough. She has no nausea, no vomiting, no fever, no chills, no diarrhea. PAST MEDICAL HISTORY: Chronic renal failure, chronic COPD, congestive heart failure, cardiomegaly; hypertension, poorly controlled; anemia, chronic anxiety; chronic back pain, on multiple medications; chronic osteoarthritis, coronary artery disease, the patient had a stent. ALLERGIES: PENICILLIN SOCIAL HISTORY: She lives with her mother. Mother is sick. She does take care of her mother. She also has a boyfriend. She has one child in college. She does not drink alcohol, but she quit smoking years ago. REVIEW OF SYSTEMS: As in the present illness, chronic back pain, chronic knee pain, arthritis, short of breath, chronic cough, constipation sometimes. HOME MEDICATIONS: The patient takes a lot of medicines, but she is noncompliant. Her medications are Renagel 800 mg t.i.d., Prilosec 40 mg once a day, 400 mg b.i.d., labetalol, hydralazine 100 mg four times daily, Colace 100 b.i.d., PhosLo 667 mg p.o. t.i.d., albuterol, Xanax 1 mg t.i.d., oxycodone 30 q. 4 hours p.r.n., clonidine 0.1 b.i.d., Ambien 10 mg at bedtime, spironolactone 25 mg p.o. b.i.d. PHYSICAL EXAMINATION GENERAL: On 12/02/2017, she was in the emergency room where she was comfortable, in no distress. VITAL SIGNS: As follows, temperature 98.3, heart rate 96, blood pressure 182/114, saturation 100% on room air, respiratory rate 22. HEAD AND NECK: Normal. No JVD. No thyromegaly. CHEST: Diminished breath sounds. CARDIAC: First and second sound normal. No murmur, rub, or gallop. ABDOMEN: Soft and nontender. EXTREMITIES: No edema. NEUROLOGICAL: Normal. LABORATORY DATA: On 12/02/2017, her white count is high at 12.4, hemoglobin 10.4, hematocrit 32.5, and platelets 173. Chemistry: Sodium 140, potassium 5.1, chloride 103, bicarb 24, BUN 51, creatinine 7.8. The patient also has magnesium of 2.4. Liver function test is normal. Troponin is negative. Albumin is 3.7, normal. Globulin is 3, normal. She had a CT chest, which shows bibasilar infiltrates and small effusion, findings suspicious for pneumonia. The patient also had EKG and a chest X-ray. Chest X-rays shows interstitial prominence. EKG shows sinus tachycardia, left atrial enlargement, poor R-wave in V1 and V3, high voltage for LVH. IMPRESSION AND PLAN: 1. We will admit the patient for chest pain, get Cardiology consultations, echocardiogram, cardiac enzyme and review . The patient will get an aspirin 81 mg and will follow up with cardiology consultation. Continue labetalol, and continue hydralazine. 2. Pneumonia, which is possible nosocomial pneumonia. We will continue current antibiotics. She got initially doxycycline, we will discuss with Infectious Disease, he will put her on different antibiotic; at this moment, continue current therapy for now. 3. Acute chronic obstructive pulmonary disease exacerbation, continue nebulizer treatment, continue steroids small dose 20 b.i.d. and nebulizer DuoNeb every 4 hours. 4. Hypertension, poorly controlled. We will give the patient clonidine b.i.d., labetalol, Diovan, hydralazine, and we will follow up on her blood pressure. 5. Chronic back pain, chronic anxiety, resume oxycodone and Xanax p.r.n. for her. Continue current therapy. Follow up clinically. Carlos Eduardo Resendiz MD
--- NOTE | 2017-12-04 23:13 | PN ---
DATE: 12/04/2017 PULMONARY PROGRESS NOTE REFERRING PHYSICIAN: Carlos Eduardo Resendiz MD. SUBJECTIVE: Patient is sitting up in a bed. Night was unremarkable. Feels a little better. Decreased cough and shortness of breath. Still feel a little tired and body aches. No nausea. No vomiting, diarrhea, leg pain, leg swelling. OBJECTIVE: GENERAL: In no acute distress. VITAL SIGNS: Temp is 98, heart rate is 61, respiratory rate is 18, blood pressure 177/96, pulse ox 93% on nasal cannula. HEENT: Moist mucous membrane. Crowded airway. Mallampati score is 4. NECK: Supple. No JVD. LUNGS: Have a fair airflow with few rhonchi. HEART: S1 and S2. ABDOMEN: Soft, nontender. No organomegaly. EXTREMITIES: No edema. NEUROLOGICAL: Awake and alert. Follows simple command. MEDICATIONS: She is on Ambien 10 mg at bedtime p.r.n., hydralazine 10 mg q.i.d. p.r.n., Azactam 1 g IV q. 8 hours, Catapres 0.1 mg three times a day, Colace 100 mg daily p.r.n., Diovan 320 mg daily, doxycycline 100 twice a day, DuoNeb q. 4 hours p.r.n. and q.i.d. around the clock, Ecotrin 81 mg daily, Motrin 600 mg q. 6 hours p.r.n., oxycodone immediate release 30 mg q. 4 hours p.r.n., PhosLo 667 with meals, Protonix 40 mg daily, Renagel 800 mg with the meals, Solu-Medrol 20 mg q. 12 hours, Trandate, which is labetalol 400 mg q. 8 hours, Xanax 1 mg q.i.d., Zofran p.r.n., 600 mg q. 12 hours. LABORATORY DATA: Reviewed and no new lab is available. Blood culture is negative. Had an echocardiogram done, which shows LV ejection fraction of 50% to 55%, mild tricuspid regurgitation, mild concentric left ventricular hypertrophy. IMPRESSION AND PLAN: Chronic obstructive lung disease; pneumonia; renal failure, dialysis dependent; anxiety disorder. Pulmonary point of view, doing okay. Continue antibiotics. Keep head at 45 degrees. Bronchodilator. Gastric prophylaxis, deep venous thrombosis prophylaxis. Thank you and we will follow with you. Chloe Moran MD
--- NOTE | 2017-12-04 23:40 | CP.PCM.PN ---
Subjective - Date & Time of Evaluation Date of Evaluation: 12/04/17 Time of Evaluation: 23:39 - Subjective Subjective: Patient was seen at bedside. She complained of chest pain. In lower sternal area, sharp, tightening pain, for past 15 minutes, similar pain as pain she came in with, no radiation,has little sob, no nausea, no sweating, no palpitations. This 57 years old woman is admitted with left sided chest pain/R/O ACS, bilateral small plerual effusion. Has PMH of HTN,CAD, S/P stent , CHF, cardiomegaly, COPD, chronic renal failure on hemodialysis, anemia, chronic anxiety, chronic back pain, OA. Objective - Vital Signs/Intake and Output Vital Signs (last 24 hours): Temp Pulse Resp BP Pulse Ox 97.3 F L 59 L 17 139/81 96 12/04/17 19:14 12/04/17 19:14 12/04/17 19:14 12/04/17 19:14 12/04/17 19:14 - Medications Medications: Current Medications Albuterol/Ipratropium (Duoneb 3 Mg/0.5 Mg (3 Ml) Ud) 3 ml IH QIDRESP [facility] Last Admin: 12/04/17 19:43 Dose: 3 ml Albuterol/Ipratropium (Duoneb 3 Mg/0.5 Mg (3 Ml) Ud) 3 ml IH [id number] PRN PRN Reason: Shortness of Breath Last Admin: 12/03/17 01:55 Dose: 3 ml Alprazolam (Xanax) 1 mg PO QID [facility] PRN Reason: Protocol Last Admin: 12/04/17 21:28 Dose: 1 mg Aspirin (Ecotrin) 81 mg PO DAILY [facility] Last Admin: 12/04/17 09:42 Dose: 81 mg Calcium Acetate (Phoslo) 667 mg PO WM [facility] Last Admin: 12/04/17 17:46 Dose: Not Given Clonidine HCl (Catapres) 0.1 mg PO TID [facility] Last Admin: 12/04/17 17:45 Dose: 0.1 mg Docusate Sodium (Colace) 100 mg PO DAILY PRN PRN Reason: Constipation Last Admin: 12/04/17 09:42 Dose: 100 mg Doxycycline Hyclate (Doryx) 100 mg PO Q12 [facility] PRN Reason: Protocol Last Admin: 12/04/17 21:28 Dose: 100 mg Hydralazine HCl (Apresoline) 10 mg PO QID PRN PRN Reason: for sbp>170 Hydralazine HCl (Apresoline) 100 mg PO TID [facility] Last Admin: 12/04/17 17:45 Dose: 100 mg Aztreonam (Azactam 1 Gm) 100 mls @ 100 mls/hr IVPB Q8 [facility] PRN Reason: Protocol Stop: 12/10/17 09:46 Last Admin: 12/04/17 21:27 Dose: 100 mls/hr Linezolid (Zyvox 600mg/300ml D5w) 600 mg in 300 mls @ 200 mls/hr IVPB Q12 [facility] PRN Reason: Protocol Stop: 12/10/17 10:01 Last Admin: 12/04/17 22:54 Dose: 200 mls/hr Ibuprofen (Motrin Tab) 600 mg PO Q6H PRN PRN Reason: chest pain Labetalol HCl (Trandate) 400 mg PO Q8 [facility] Last Admin: 12/04/17 13:45 Dose: 400 mg Methylprednisolone (Solu-Medrol) 20 mg IVP Q12 [facility] Last Admin: 12/04/17 21:28 Dose: 20 mg Ondansetron HCl (Zofran Inj) 4 mg IVP Q4 PRN PRN Reason: Nausea/Vomiting Last Admin: 12/04/17 14:56 Dose: 4 mg Oxycodone HCl (Oxycodone Immediate Release Tab) 30 mg PO Q4H PRN PRN Reason: Pain, severe (8-10) Last Admin: 12/04/17 13:42 Dose: 30 mg Pantoprazole Sodium (Protonix Ec Tab) 40 mg PO 0600 [facility] Last Admin: 12/04/17 05:03 Dose: 40 mg Sevelamer HCl (Renagel) 800 mg PO WM [facility] Last Admin: 12/04/17 17:47 Dose: Not Given Valsartan (Diovan) 320 mg PO DAILY [facility] Last Admin: 12/04/17 09:54 Dose: 320 mg Zolpidem Tartrate (Ambien) 10 mg PO HS [facility] PRN Reason: Protocol Last Admin: 12/03/17 21:33 Dose: 10 mg - Labs Labs: 12/03/17 11:40 12/03/17 10:50 PT 12.2 SECONDS (9.4-12.5) 12/02/17 19:06 INR 1.07 (0.93-1.08) 12/02/17 19:06 APTT 30.3 Seconds (25.1-36.5) 12/02/17 19:06 Micro Results 12/02/17 21:30 Blood-Venous Blood Culture - Preliminary NO GROWTH AFTER 48 HOURS 12/02/17 21:00 Blood-Venous Blood Culture - Preliminary NO GROWTH AFTER 48 HOURS Most Recent Lab Values WBC 11.2 10^3/ul (4.5-11.0) H 12/03/17 11:40 RBC 3.38 10^6/uL (3.5-6.1) L 12/03/17 11:40 Hgb 10.4 g/dL (12.0-16.0) L 12/03/17 11:40 Hct 32.7 % (36.0-48.0) L 12/03/17 11:40 MCV 96.7 fl (80.0-105.0) 12/03/17 11:40 MCH 30.8 pg (25.0-35.0) 12/03/17 11:40 MCHC 31.8 g/dl (31.0-37.0) 12/03/17 11:40 RDW 13.7 % (11.5-14.5) 12/03/17 11:40 Plt Count 176 10^3/uL (120.0-450.0) 12/03/17 11:40 MPV 11.7 fl (7.0-11.0) H 12/03/17 11:40 Gran % 89.4 % (50.0-68.0) H 12/03/17 11:40 Lymph % (Auto) 5.5 % (22.0-35.0) L 12/03/17 11:40 [place] % (Auto) 5.1 % (1.0-6.0) 12/03/17 11:40 Eos % (Auto) 0.0 % (1.5-5.0) L 12/03/17 11:40 Baso % (Auto) 0.0 % (0.0-3.0) 12/03/17 11:40 Gran # 9.99 (1.4-6.5) H 12/03/17 11:40 Lymph # (Auto) 0.6 (1.2-3.4) L 12/03/17 11:40 [place] # (Auto) 0.6 (0.1-0.6) 12/03/17 11:40 Eos # (Auto) 0.0 (0.0-0.7) 12/03/17 11:40 Baso # (Auto) 0.00 K/mm3 (0.0-2.0) 12/03/17 11:40 Neutrophils % (Manual) 93 % (50.0-70.0) H 12/02/17 19:06 Lymphocytes % (Manual) 5 % (22.0-35.0) L 12/02/17 19:06 Monocytes % (Manual) 2 % (1.0-6.0) 12/02/17 19:06 Platelet Evaluation Normal (NORMAL) 12/02/17 19:06 Hypochromasia Slight 12/02/17 19:06 Anisocytosis (manual) Slight 12/02/17 19:06 PT 12.2 SECONDS (9.4-12.5) 12/02/17 19:06 INR 1.07 (0.93-1.08) 12/02/17 19:06 APTT 30.3 Seconds (25.1-36.5) 12/02/17 19:06 pO2 45 mm/Hg (30-55) 12/02/17 23:15 VBG pH 7.33 (7.32-7.43) 12/02/17 23:15 VBG pCO2 40.0 (40-60) 12/02/17 23:15 VBG HCO3 21.1 mmol/l (21-28) 12/02/17 23:15 VBG Total CO2 22.3 mmol.L (22-28) 12/02/17 23:15 VBG O2 Sat (Calc) 88.1 % (40-65) H 12/02/17 23:15 VBG Base Excess -4.5 mmol/L (0.0-2.0) L 12/02/17 23:15 VBG Potassium 5.3 mmol/L (3.6-5.2) H 12/02/17 23:15 Sodium 135.0 mmol/L (132-148) 12/02/17 23:15 Chloride 105.0 mmol/L (98-107) 12/02/17 23:15 Glucose 154 mg/dl (65-105) H 12/02/17 23:15 Lactate 1.1 mmol/L (0.7-2.1) 12/02/17 23:15 FiO2 21.0 % 12/02/17 23:15 Sodium 139 mmol/L (132-148) 12/03/17 10:50 Potassium 5.5 mmol/L (3.6-5.0) H 12/03/17 10:50 Chloride 104 mmol/L (98-107) 12/03/17 10:50 Carbon Dioxide 19 mmol/L (21-33) L 12/03/17 10:50 Anion Gap 22 (10-20) H 12/03/17 10:50 BUN 60 mg/dL (7-21) H 12/03/17 10:50 Creatinine 8.2 mg/dl (0.7-1.2) H* 12/03/17 10:50 Est GFR ( Amer) 6 12/03/17 10:50 Est GFR (Non-Af Amer) 5 12/03/17 10:50 Random Glucose 135 mg/dL (70-110) H 12/03/17 10:50 Hemoglobin A1c 5.5 % (4.2-6.5) 12/03/17 10:50 Calcium 8.8 mg/dL (8.4-10.5) 12/03/17 10:50 Phosphorus 5.8 mg/dL (2.5-4.5) H 12/03/17 10:50 Magnesium 2.4 mg/dL (1.7-2.2) H 12/03/17 10:50 Total Bilirubin 0.5 mg/dL (0.2-1.3) 12/03/17 10:50 AST 18 U/L (14-36) 12/03/17 10:50 ALT 27 U/L (7-56) 12/03/17 10:50 Alkaline Phosphatase 63 U/L (38-126) 12/03/17 10:50 Lactate Dehydrogenase 417 U/L (333-699) 12/02/17 19:06 Total Creatine Kinase 55 U/L (35-230) 12/02/17 19:06 Troponin I 0.03 ng/mL D 12/02/17 19:06 Total Protein 6.6 g/dL (5.8-8.3) 12/03/17 10:50 Albumin 3.6 g/dL (3.0-4.8) 12/03/17 10:50 Globulin 2.9 gm/dL 12/03/17 10:50 Albumin/Globulin Ratio 1.2 (1.1-1.8) 12/03/17 10:50 Triglycerides 54 mg/dL (35-160) 12/03/17 10:50 Cholesterol 144 mg/dL (130-200) 12/03/17 10:50 LDL Cholesterol Direct 82 mg/dL (0-129) 12/03/17 10:50 HDL Cholesterol 42 mg/dL (29-60) 12/03/17 10:50 Procalcitonin 0.58 NG/ML (0.19-0.49) H 12/03/17 10:50 TSH 3rd Generation 0.54 mIU/mL (0.46-4.68) 12/03/17 10:50 Venous Blood Potassium 5.3 mmol/L (3.6-5.2) H 12/02/17 23:15 Urine Color Yellow (YELLOW) 12/04/17 06:45 Urine Appearance Clear (CLEAR) 12/04/17 06:45 Urine pH 8.0 (4.7-8.0) 12/04/17 06:45 Ur Specific [place] <= 1.005 (1.005-1.035) 12/04/17 06:45 Urine Protein Trace mg/dL (<30 mg/dL) H 12/04/17 06:45 Urine Glucose (UA) Negative mg/dL (NEGATIVE) 12/04/17 06:45 Urine Ketones Negative mg/dL (NEGATIVE) 12/04/17 06:45 Urine Blood Trace-intact (NEGATIVE) H 12/04/17 06:45 Urine Nitrate Negative (NEGATIVE) 12/04/17 06:45 Urine Bilirubin Negative (NEGATIVE) 12/04/17 06:45 Urine Urobilinogen 0.2 E.U./dL (<1 E.U./dL) 12/04/17 06:45 Ur Leukocyte Esterase [place]/uL (NEGATIVE) H 12/04/17 06:45 Urine RBC 2 - 5 /hpf (0-2) 12/04/17 06:45 Urine WBC 5 - 10 /hpf (0-6) 12/04/17 06:45 Ur Epithelial Cells 6 - 8 /hpf (0-5) 12/04/17 06:45 Amorphous Sediment Few 12/04/17 06:45 Urine Bacteria Many (NEG) 12/04/17 06:45 Urine Other Uyeast 12/04/17 06:45 Influenza Typ A,B (EIA) Negative for flu a/b (NEGATIVE) 12/02/17 21:00 Ur L.pneumophila Ag Negative (NEGATIVE) 12/04/17 06:45 - Constitutional Appears: Well, No Acute Distress - Head Exam Head Exam: ATRAUMATIC, NORMAL INSPECTION, NORMOCEPHALIC - Eye Exam Eye Exam: Normal appearance - ENT Exam ENT Exam: Normal External Ear Exam - Neck Exam Neck Exam: Normal Inspection - Respiratory Exam Respiratory Exam: NORMAL BREATHING PATTERN - Cardiovascular Exam Cardiovascular Exam: absent: JVD Additional comments: Mild tenderness in lower sternal area. - GI/Abdominal Exam GI & Abdominal Exam: absent: Distended - Rectal Exam Rectal Exam: Deferred - Exam Additional comments: Deferred. - Extremities Exam Extremities Exam: Normal Inspection. absent: Tenderness - Back Exam Back Exam: NORMAL INSPECTION - Neurological Exam Neurological Exam: Alert, Awake, Oriented x3 - Psychiatric Exam Psychiatric exam: Normal Affect, Normal Mood - Skin Skin Exam: Normal Color Assessment and Plan - Assessment and Plan (Free Text) Assessment: Chest pain. R/O ACS Musculo skeletal chest pain. HTN. CAD. CHF. COPD. CKD. Anxiety. Plan: EKG----> NSR, anterior lateral ischemia.(New) Troponin---->0.01. Oxygen. NTG as per order. Morphine 2 mg IV x 1. (Pain did not subside with NTB sublinguals.) ASA. Plavix. Keep NPO. Transfer to telemetry floor. Cardiology follow up in AM.
[2017-12-05] MEDS ORDERED: Morphine 2 mg/ml ISec IVP STA (00:27)
[2017-12-05] MEDS ORDERED: Enoxaparin 80 mg Syringe SC SCH (00:45)
[2017-12-05] MEDS: Nitroglycerin 2% Ointment Foilpak UD TOP SCH ×4 (01:01→18:17)
[2017-12-05] MEDS ORDERED: Morphine 4 mg/ml ISec IVP STA (01:09)
[2017-12-05] MEDS ORDERED: oxyCODONE 30 mg Immediate Release Tab PO STA (02:02)
[2017-12-05] MEDS: oxyCODONE 30 mg Immediate Release Tab PO PRN ×2 (02:24→15:27)
[2017-12-05] MEDS: Albuterol-Ipratrop 3 mg / 0.5 (3 ml) UD IH SCH ×5 (08:01→19:52)
[2017-12-05] MEDS: Pantoprazole 40 mg EC Tab PO SCH (08:24)
[2017-12-05] MEDS: Aztreonam 1 Gm in NS 100mL 100 ML IVPB SCH ×2 (09:28→15:15)
[2017-12-05] MEDS: MethylPREDNISolone 40 mg Vial IVP SCH (09:36)
--- NOTE | 2017-12-05 09:41 | CARD ---
APPROVED REPORT EKG Measurement Heart [id number] [place] 142P-13 [id number] <Conclusion> Sinus bradycardia, LVH. ST & Marked T wave abnormality, consider anterolateral ischemia Prolonged QT Abnormal ECG
--- NOTE | 2017-12-05 10:00 | CARD ---
APPROVED REPORT EKG Measurement Heart [id number] [place] 160P69 [id number] <Conclusion> Normal sinus rhythm. LVH. Possible Left atrial enlargement ST & Marked T wave abnormality, consider anterolateral ischemia Prolonged QT Abnormal ECG
[2017-12-05] MEDS: Lidocaine/Prilocaine 2.5%-2.5% Cream(30 gm) TOP SCH (10:29)
[2017-12-05 10:34] LABS: EOS % 0.1 % (1.5-5.0); GRAN # 10.52 (1.4-6.5); GRAN % 91.3 % (50.0-68.0); HEMOGLOBIN 10.2 g/dL (12.0-16.0); LYMPH # 0.6 (1.2-3.4); LYMPH % 4.9 % (22.0-35.0); MEAN CELL VOLUME 99.1 fl (80.0-105.0); MEAN CORPUSCULAR HEMOGLOBIN 30.7 pg (25.0-35.0); MEAN PLATELET VOLUME 11.9 fl (7.0-11.0); MONO # 0.4 (0.1-0.6); MONO % 3.7 % (1.0-6.0); RBC 3.32 10^6/uL (3.5-6.1); RED CELL DISTRIBUTION WIDTH 14.2 % (11.5-14.5); WHITE BLOOD COUNT 11.5 10^3/ul (4.5-11.0)
[2017-12-05 10:47] LABS: ALB/GLOB RATIO 1.5 (1.1-1.8); ALBUMIN 3.9 g/dL (3.0-4.8); CALCIUM 8.5 mg/dL (8.4-10.5); MAGNESIUM 2.3 mg/dL (1.7-2.2)
[2017-12-05 11:10] LABS: EOS % 0.1 % (1.5-5.0); GRAN # 10.14 (1.4-6.5); GRAN % 85.1 % (50.0-68.0); HEMOGLOBIN 9.7 g/dL (12.0-16.0); LYMPH # 0.9 (1.2-3.4); LYMPH % 7.2 % (22.0-35.0); MEAN CELL VOLUME 97.8 fl (80.0-105.0); MEAN CORPUSCULAR HGB CONC 31.7 g/dl (31.0-37.0); MEAN PLATELET VOLUME 11.6 fl (7.0-11.0); MONO # 0.9 (0.1-0.6); MONO % 7.6 % (1.0-6.0); RBC 3.13 10^6/uL (3.5-6.1); RED CELL DISTRIBUTION WIDTH 14.1 % (11.5-14.5); WHITE BLOOD COUNT 11.9 10^3/ul (4.5-11.0)
[2017-12-05 11:23] LABS: ALB/GLOB RATIO 1.3 (1.1-1.8); ALBUMIN 3.7 g/dL (3.0-4.8); ALT/SGPT 23 U/L (7-56); AST/SGOT 17 U/L (14-36); BLOOD UREA NITROGEN 57 mg/dL (7-21); CALCIUM 8.2 mg/dL (8.4-10.5); GFR AFRICAN-AMERICAN 9; GFR NON-AFRICAN AMERICAN 7; MAGNESIUM 2.1 mg/dL (1.7-2.2)
[2017-12-05 11:32] LABS: TROPONIN I < 0.01 ng/mL
[2017-12-05] MEDS ORDERED: Darbepoetin Alfa 25 mcg/ml Inj IVP ONE (13:06)
[2017-12-05] MEDS: Linezolid 600 mg in D5W 300 ml 600 MG/300 ML BAG IVPB SCH (15:20)
--- NOTE | 2017-12-05 15:31 | CARD ---
APPROVED REPORT EKG Measurement Heart [id number] [place] [id number] [id number] <Conclusion> Normal sinus rhythm ST & Marked T wave abnormality, consider anterolateral ischemia Prolonged QT Abnormal ECG
--- NOTE | 2017-12-05 17:39 | PN ---
DATE: 12/05/2017 SUBJECTIVE: The patient is seen sitting in bed. She is awake. She is alert. She is comfortable. She had stable dialysis this morning. She reports she had chest pain in the middle of the night. She was awakened by the chest pain. She had an EKG done, which showed some ischemic changes. Currently, she has no chest pain. PHYSICAL EXAMINATION: GENERAL: Elderly lady sitting in bed. VITAL SIGNS: Blood pressure 146/57, heart rate 63, respiratory rate 18, temperature 98. HEENT: Normocephalic, atraumatic. NECK: Supple, no JVD. LUNGS: Bilateral equal air entry. Bilateral equal expansion. No rales. CARDIAC: S1 and S2, regular rate and rhythm, no murmur, no rub. ABDOMEN: Soft, nondistended, nontender. Bowel sounds present. EXTREMITIES: No lower extremity edema. LABORATORY DATA: WBC 11.9, hemoglobin 9.7, hematocrit 30.6, platelets 178. Sodium 138, potassium 4.3, chloride 100, CO2 23, BUN 57, creatinine 6.0, glucose 138, calcium 8.2, phosphorus 5.0, magnesium 2.1, albumin 3.7. CURRENT MEDICATIONS: Ambien, Apresoline 100 t.i.d., Azactam 1 g q.8, Catapres 0.1 t.i.d., Colace, Diovan 320, doxycycline 100 q.12, DuoNeb, Ecotrin, EMLA cream, Motrin 600 q.6, PhosLo, Protonix, Renagel 800 with meals, Solu-Medrol 20 IV q.12, Trandate, Xanax, Zofran, Zyvox. ASSESSMENT: 1. Chest pain with EKG changes, rule out acute coronary syndrome. 2. Multilobar pneumonia. 3. Noninsulin-dependent diabetes mellitus. 4. Hypertension. 5. End-stage renal disease. 6. Secondary hyperparathyroidism. PLAN: 1. Continue antibiotics for bilateral pneumonia. 2. Rule out acute GA by enzymes and EKG. 3. (?) cardiac cath again. 4. Stable dialysis today. Kayleen Flores MD [facility] # [id number]
--- NOTE | 2017-12-05 23:57 | PN ---
DATE: REFERRING PHYSICIAN: Carlos Eduardo Resendiz MD. SUBJECTIVE: She is sitting up in the bed, having dinner. Overnight events noted, apparently episode of shortness of breath and chest pain, was moved to telemetry, seen by Cardiology. Also had EEG done. Presently, cough is better. No nausea. No chest pain at present time. No dysuria. No leg pain or leg swelling. PHYSICAL EXAMINATION: GENERAL: In no acute distress. VITAL SIGNS: Temperature is 98, heart rate 65, respiratory rate 18, blood pressure 136/81, pulse ox 99% on nasal cannula. HEENT: Moist mucous membrane. Small oral cavity. Crowded airway. NECK: Supple. No JVD. LUNGS: Fair airflow, no rhonchi. HEART: S1 and S2. ABDOMEN: Soft, nontender. No organomegaly. EXTREMITIES: No edema. NEUROLOGICAL: Awake and alert. Follows simple command. MEDICATIONS: She is on Ambien 10 mg at bedtime p.r.n., hydralazine 10 mg twice a day p.r.n., also hydralazine 100 mg 3 times a day round the clock, Azactam 1 g IV q.8 hour, clonidine 0.1 mg 3 times a day, Colace 100 mg daily, Diovan 320 mg daily, doxycycline 100 mg twice a day, DuoNeb q.4 hour p.r.n., DuoNeb q.6 hours round the clock, Ecotrin 81 mg daily, EMLA powder affected area, Motrin 600 mg q.6 hours, Mylicon (simethicone) 40 mg twice a day, Nitro-Bid. 2% ointment q.6 hours, nystatin oral 5 mL four times a day, oxycodone immediate release 30 mg q.4 hours p.r.n., calcium acetate 667 with meals, Protonix 40 mg daily, Renagel 800 mg with the meals, Solu-Medrol 20 mg q.12 hours, labetalol 400 mg q.8 hours, Xanax 1 mg four times a day, Zofran p.r.n., Zyvox 600 mg q.12 hours. LABORATORY DATA: Hemoglobin 9.7, hematocrit 30.6, WBC 11.9. Sodium 138, potassium 4.3, chloride 100, bicarbonate 23, BUN 57, creatinine 6.0, glucose 138, calcium is 8.2, phosphorus 5.0, magnesium 2.1. AST 17, ALT 23, alk phos is 48, albumin is 3.7. Mycoplasma IgG is 447, IgM is 50. Microbiology: Blood cultures have been negative. IMPRESSION AND PLAN: Chronic obstructive lung disease; pneumonia; renal failure, dialysis dependent; anxiety disorder. Has atypical type of chest pain, seen by Cardiology. Pulmonary point of view, continue bronchodilator, continue antibiotics. Gastroesophageal reflux disease precaution. Gastric prophylaxis, deep vein thrombosis prophylaxis. On dialysis. Thank you and we will follow with you. Chloe Moran MD
[2017-12-06] MEDS: Nystatin 100,000 Units/ml Oral Susp 5 ml UD PO SCH ×6 (02:01→22:41)
[2017-12-06] MEDS: Aztreonam 1 Gm in NS 100mL 100 ML IVPB SCH ×4 (02:02→22:40)
[2017-12-06] MEDS: Nitroglycerin 2% Ointment Foilpak UD TOP SCH ×4 (02:05→17:51)
[2017-12-06] MEDS: MethylPREDNISolone 40 mg Vial IVP SCH ×2 (02:29→09:36)
[2017-12-06] MEDS: Linezolid 600 mg in D5W 300 ml 600 MG/300 ML BAG IVPB SCH ×3 (03:18→22:41)
[2017-12-06] MEDS: Pantoprazole 40 mg EC Tab PO SCH (05:49)
[2017-12-06] MEDS: Albuterol-Ipratrop 3 mg / 0.5 (3 ml) UD IH SCH ×4 (08:00→20:50)
[2017-12-06] MEDS: Simethicone 40 mg/0.6 ml Liquid (30 ml) PO SCH ×2 (11:02→17:41)
[2017-12-06] MEDS: oxyCODONE 30 mg Immediate Release Tab PO PRN ×3 (12:28→22:50)
--- NOTE | 2017-12-06 13:57 | PN ---
DATE: 12/06/2017 REFERRING PHYSICIAN: Dr. Resendiz. REASON FOR THE CONSULTATION: Chest pain; symmetrical T-wave inversion; unstable angina; acute coronary syndrome; end-stage renal disease, on dialysis. SUBJECTIVE: The patient still complaining of chest pain, which is tender also. This is not in apparent distress, lying flat on the bed. PHYSICAL EXAMINATION VITAL SIGNS: Temperature afebrile, heart rate 64, blood pressure 115/62. HEENT: PERRLA. Extraocular muscles intact. NECK: Supple. No carotid bruit or thyromegaly. CHEST: Clear to auscultation. HEART: S1 and S2 regular. ABDOMEN: Soft. EXTREMITIES: Clubbing and cyanosis negative. LABORATORY DATA: Blood workup as follows: WBC 11.9, hemoglobin 9.3, hematocrit 30.6, platelet count 178,000. Chemistry shows sodium 130, potassium 4.3, chloride 100, carbon dioxide 23, anion gap of 19. BUN 57, creatinine 6, troponin 0.01 and negative. IMPRESSION: The patient woke up day before yesterday with chest pain. EKG done with symmetrical T-wave changes, V1, V2, V3, V4, V5 which is new as compared to the night day before and subsequent EKG also showed symmetrical T-wave changes though so far no evidence of acute MA by troponin, but significant symmetrical T-wave changes consistent with acute coronary artery syndrome. History of cardiac catheterization in the past that shows nonobstructive coronary artery disease limited only to diagonal 2, cath was on 05/20/2016. At that time, the LAD circumflex essentially free of significant flow obstructive at stenosis and preserved LV function, ejection fraction 55% dated 05/20/2016, but in view of recent EKG changes with chest pain, though troponin is negative suggest cardiac catheterization. Discussed in length with the patient, the patient agreed. We will proceed for cardiac catheterization on Friday. We will load with aspirin, Plavix and keep n.p.o. on Friday midnight for possible cardiac catheterization, though there is element of tenderness on the chest wall also, we can start with ibuprofen. We will follow with you. History of end-stage renal disease, on dialysis. My yesterday's dictation is not available. We will look into the medical record to get the dictation back. In the interim, continue hydralazine, continue valsartan, continue Telemetry. We will load with Plavix and continue aspirin and n.p.o. on Friday midnight for cardiac catheterization. Thank you, Dr. Resendiz, for providing us the opportunity in taking care of the patient. Chloe Smallwood MD
--- NOTE | 2017-12-06 15:58 | CP.PCM.PN ---
Subjective - Date & Time of Evaluation Date of Evaluation: 12/06/17 Time of Evaluation: 11:50 - Subjective Subjective: Resting comfortably in bed, no fevers. Objective - Vital Signs/Intake and Output Vital Signs (last 24 hours): Temp Pulse Resp BP Pulse Ox 98.2 F 72 19 140/76 93 L 12/04/17 06:00 12/04/17 10:00 12/04/17 06:00 12/04/17 09:42 12/04/17 06:00 Intake and Output: 12/04/17 12/04/17 06:59 18:59 Intake Total 1420 Balance 1420 - Medications Medications: Current Medications Albuterol/Ipratropium (Duoneb 3 Mg/0.5 Mg (3 Ml) Ud) 3 ml IH QIDRESP [facility] Last Admin: 12/04/17 07:46 Dose: Not Given Albuterol/Ipratropium (Duoneb 3 Mg/0.5 Mg (3 Ml) Ud) 3 ml IH [id number] PRN PRN Reason: Shortness of Breath Last Admin: 12/03/17 01:55 Dose: 3 ml Alprazolam (Xanax) 1 mg PO QID [facility] PRN Reason: Protocol Last Admin: 12/04/17 09:41 Dose: 1 mg Aspirin (Ecotrin) 81 mg PO DAILY [facility] Last Admin: 12/04/17 09:42 Dose: 81 mg Calcium Acetate (Phoslo) 667 mg PO WM [facility] Last Admin: 12/04/17 08:36 Dose: 667 mg Clonidine HCl (Catapres) 0.1 mg PO BID [facility] Last Admin: 12/04/17 09:42 Dose: 0.1 mg Docusate Sodium (Colace) 100 mg PO DAILY PRN PRN Reason: Constipation Last Admin: 12/04/17 09:42 Dose: 100 mg Doxycycline Hyclate (Doryx) 100 mg PO Q12 [facility] PRN Reason: Protocol Last Admin: 12/04/17 09:42 Dose: 100 mg Hydralazine HCl (Apresoline) 10 mg PO QID PRN PRN Reason: for sbp>170 Hydralazine HCl (Apresoline) 100 mg PO TID [facility] Last Admin: 12/04/17 09:43 Dose: 100 mg Aztreonam (Azactam 1 Gm) 100 mls @ 100 mls/hr IVPB Q8 [facility] PRN Reason: Protocol Stop: 12/10/17 09:46 Last Admin: 12/04/17 05:01 Dose: 100 mls/hr Linezolid (Zyvox 600mg/300ml D5w) 600 mg in 300 mls @ 200 mls/hr IVPB Q12 [facility] PRN Reason: Protocol Stop: 12/10/17 10:01 Last Admin: 12/04/17 09:45 Dose: 200 mls/hr Labetalol HCl (Trandate) 400 mg PO Q8 [facility] Last Admin: 12/04/17 05:01 Dose: 400 mg Methylprednisolone (Solu-Medrol) 20 mg IVP Q12 [facility] Last Admin: 12/04/17 09:44 Dose: 20 mg Oxycodone HCl (Oxycodone Immediate Release Tab) 30 mg PO Q4H PRN PRN Reason: Pain, severe (8-10) Last Admin: 12/04/17 09:41 Dose: 30 mg Pantoprazole Sodium (Protonix Ec Tab) 40 mg PO 0600 [facility] Last Admin: 12/04/17 05:03 Dose: 40 mg Sevelamer HCl (Renagel) 800 mg PO WM [facility] Last Admin: 12/04/17 08:36 Dose: 800 mg Valsartan (Diovan) 320 mg PO DAILY [facility] Last Admin: 12/04/17 09:54 Dose: 320 mg Zolpidem Tartrate (Ambien) 10 mg PO HS [facility] PRN Reason: Protocol Last Admin: 12/03/17 21:33 Dose: 10 mg - Labs Labs: 12/03/17 11:40 12/03/17 10:50 PT 12.2 SECONDS (9.4-12.5) 12/02/17 19:06 INR 1.07 (0.93-1.08) 12/02/17 19:06 APTT 30.3 Seconds (25.1-36.5) 12/02/17 19:06 - Constitutional Appears: Chronically Ill - Head Exam Head Exam: NORMAL INSPECTION - Neck Exam Neck Exam: absent: Meningismus - Respiratory Exam Respiratory Exam: Decreased Breath Sounds - Cardiovascular Exam Cardiovascular Exam: +S1, +S2 - GI/Abdominal Exam GI & Abdominal Exam: Soft. absent: Tenderness Assessment and Plan - Assessment and Plan (Free Text) Plan: Assessment Consider sepsis due to bilateral healthcare-associated pneumonia with possible gram positive cocci and/or gram negative bacilli and/or atypical organisms ESRD on HD chronic CHF with CAD COPD history of pneumonia history of CVA history of cerebral aneurysm Plan continue on Zyvox, Aztreonam and Doxycycline day 3 pending blood cx (negative so far); PCT is elevated at 0.58 rapid flu test is negative; follow up urine Legionella Ag, Mycoplasma tests will continue monitor clinically
--- NOTE | 2017-12-06 16:11 | PN ---
DATE: 12/06/2017 SUBJECTIVE: The patient is seen lying in bed. She appears comfortable. She does not appear to be in any kind of distress. OBJECTIVE: VITAL SIGNS: Blood pressure 115/67, heart rate 64, respiratory rate 18, and temperature 98. HEENT: Normocephalic, atraumatic, positive pallor. NECK: Supple, no JVD. LUNGS: Bilateral equal air entry, bilateral equal expansion, crackles. CARDIAC: S1 and S2, regular rate and rhythm, no murmur, no rub. ABDOMEN: Soft, nondistended, nontender, bowel sounds present. EXTREMITIES: No lower extremity edema. INTAKE AND OUTPUT: Not charted. LABORATORY DATA: WBC 11.9, hemoglobin 9.7, and hematocrit 30.6. No chemistry available today. MEDICATIONS: Ambien, hydralazine, Azactam, Catapres, Diovan, doxycycline 100 q.12, DuoNeb, Ecotrin, lidocaine, Emla cream. ASSESSMENT: 1. Bilateral pneumonia. 2. Acute coronary syndrome? 3. Severe hypertension. 4. End-stage renal disease. 5. Anemia of chronic kidney disease. 6. Hyperphosphatemia. 7. History of noncompliance with dialysis treatments. PLAN: 1. The patient had stable dialysis yesterday. 2. Continue antibiotics for pneumonia. 3. Continue phosphate binders. 4. Will discuss with Cardiology regarding plan for cardiac cath? Kayleen Flores MD
--- NOTE | 2017-12-06 22:34 | PN ---
DATE: PULMONARY PROGRESS NOTE REFERRING PHYSICIAN: Carlos Eduardo Resendiz MD. SUBJECTIVE: Patient is ambulating in the room. Feels okay. Still complaining of an on and off shortness of breath and chest pain. No nausea. No vomiting or diarrhea. No leg pain or leg swelling. OBJECTIVE: GENERAL: In no acute distress. VITAL SIGNS: Temp is 98, heart rate is 57, respiratory rate is 20, blood pressure 163/87, pulse ox 100% on 2 L nasal cannula. HEENT: Moist mucous membrane. Small oral cavity. Crowded airway. NECK: Supple. No JVD. LUNGS: Have a fair airflow, with few rhonchi. HEART: S1 and S2. ABDOMEN: Soft, nontender. No organomegaly. EXTREMITIES: No edema. NEUROLOGICAL: Awake and alert. Follows simple command. MEDICATIONS: She is on Ambien 10 mg at bedtime p.r.n., hydralazine 10 mg four times daily p.r.n., Azactam 1 g IV q. 8 hours, clonidine 0.1 mg three times a day, Colace 100 mg daily p.r.n., Diovan 320 mg daily, doxycycline 100 twice a day, albuterol Atrovent nebulizer q. 4 hours p.r.n. four times daily round the clock, Ecotrin 81 mg daily, lidocaine with prilocaine at affected area, Motrin 600 mg q. 6 hours p.r.n., simethicone 40 mg twice a day, nystatin oral suspension four times a day, oxycodone immediate release 30 mg q. 4 hours p.r.n., mg daily, Protonix 40 mg daily, Renagel 800 mg with the meals, Solu-Medrol 20 mg q. 12 hours, labetalol 400 mg q. 8 hours, Xanax 1 mg four times daily, Zofran 4 mg q. 8 hours p.r.n., Zyvox 600 mg q. 12 hours. LABORATORY DATA: Shows hemoglobin 9.7, hematocrit 30.6, WBC 11.9, platelet is 178. Sodium 138, potassium 4.3, chloride 100, bicarbonate 23, BUN 57, creatinine 6.0, glucose 138, calcium is 8.2, phosphorus is 5.0, magnesium 2.1. AST 23, ALT 23, alk phos is 48, albumin is 3.7. Microbiology: Blood cultures have been negative. IMPRESSION AND PLAN: Chronic obstructive lung disease, pneumonia; renal failure, dialysis dependent; anxiety disorder, coronary artery syndrome is being ruled out. Pulmonary point of view, she is doing well. We will suggest discontinue Solu-Medrol and place her on prednisone 20 mg daily and taper in the next few days. Antibiotics as per Infectious Disease. Gastroesophageal reflux disease precaution. Gastric prophylaxis. Fall precaution. Thank you and we will follow with you. Chloe Moran MD
[2017-12-07] MEDS: Aztreonam 1 Gm in NS 100mL 100 ML IVPB SCH ×3 (06:40→21:43)
[2017-12-07] MEDS: Pantoprazole 40 mg EC Tab PO SCH (06:47)
[2017-12-07] MEDS: oxyCODONE 30 mg Immediate Release Tab PO PRN ×2 (06:47→18:19)
[2017-12-07] MEDS: Albuterol-Ipratrop 3 mg / 0.5 (3 ml) UD IH SCH ×4 (08:02→20:13)
[2017-12-07] MEDS: Nystatin 100,000 Units/ml Oral Susp 5 ml UD PO SCH ×4 (09:54→21:47)
[2017-12-07] MEDS: Simethicone 40 mg/0.6 ml Liquid (30 ml) PO SCH ×2 (09:56→18:20)
[2017-12-07] MEDS: Linezolid 600 mg in D5W 300 ml 600 MG/300 ML BAG IVPB SCH ×2 (09:59→21:48)
[2017-12-07] MEDS: Nitroglycerin 2% Ointment Foilpak UD TOP SCH ×2 (12:36→18:20)
--- NOTE | 2017-12-07 17:25 | CP.PCM.PN ---
Subjective - Date & Time of Evaluation Date of Evaluation: 12/07/17 Time of Evaluation: 10:10 - Subjective Subjective: Comfortable, no fevers, not in distress, breathing better but still with occasional SOB. Objective - Vital Signs/Intake and Output Vital Signs (last 24 hours): Temp Pulse Resp BP Pulse Ox 98 F 60 18 150/83 99 12/05/17 17:49 12/06/17 14:55 12/05/17 17:49 12/06/17 14:55 12/05/17 06:00 Intake and Output: 12/06/17 12/06/17 06:59 18:59 Intake Total 0 Balance 0 - Medications Medications: Current Medications Albuterol/Ipratropium (Duoneb 3 Mg/0.5 Mg (3 Ml) Ud) 3 ml IH QIDRESP [facility] Last Admin: 12/06/17 12:58 Dose: Not Given Albuterol/Ipratropium (Duoneb 3 Mg/0.5 Mg (3 Ml) Ud) 3 ml IH [id number] PRN PRN Reason: Shortness of Breath Last Admin: 12/03/17 01:55 Dose: 3 ml Alprazolam (Xanax) 1 mg PO QID [facility] PRN Reason: Protocol Last Admin: 12/06/17 14:48 Dose: 1 mg Aspirin (Ecotrin) 81 mg PO DAILY [facility] Last Admin: 12/06/17 09:37 Dose: 81 mg Calcium Acetate (Phoslo) 667 mg PO WM [facility] Last Admin: 12/06/17 12:28 Dose: 667 mg Clonidine HCl (Catapres) 0.1 mg PO TID [facility] Last Admin: 12/06/17 14:55 Dose: 0.1 mg Clopidogrel Bisulfate (Plavix) 75 mg PO DAILY [facility] Docusate Sodium (Colace) 100 mg PO DAILY PRN PRN Reason: Constipation Last Admin: 12/04/17 09:42 Dose: 100 mg Doxycycline Hyclate (Doryx) 100 mg PO Q12 [facility] PRN Reason: Protocol Last Admin: 12/06/17 09:37 Dose: 100 mg Hydralazine HCl (Apresoline) 10 mg PO QID PRN PRN Reason: for sbp>170 Hydralazine HCl (Apresoline) 100 mg PO TID [facility] Last Admin: 03/03/18 14:55 Dose: 100 mg Aztreonam (Azactam 1 Gm) 100 mls @ 100 mls/hr IVPB Q8 [facility] PRN Reason: Protocol Stop: 12/10/17 09:46 Last Admin: 12/06/17 14:48 Dose: 100 mls/hr Linezolid (Zyvox 600mg/300ml D5w) 600 mg in 300 mls @ 200 mls/hr IVPB Q12 [facility] PRN Reason: Protocol Stop: 12/10/17 10:01 Last Admin: 12/06/17 09:36 Dose: 200 mls/hr Ibuprofen (Motrin Tab) 600 mg PO Q6H PRN PRN Reason: chest pain Labetalol HCl (Trandate) 400 mg PO Q8 [facility] Last Admin: 12/06/17 14:55 Dose: 400 mg Lidocaine/Prilocaine (Emla) 1 gm TOP MOWEFR [facility] Last Admin: 12/05/17 10:29 Dose: 1 % Methylprednisolone (Solu-Medrol) 20 mg IVP Q12 [facility] Last Admin: 12/06/17 09:36 Dose: 20 mg Nitroglycerin (Nitro-Bid 2% Oint) 1 ea TOP Q6H [facility] Last Admin: 12/06/17 12:33 Dose: 1 ea Nystatin (Nystatin Oral Susp) 5 ml PO QID [facility] Last Admin: 12/06/17 15:28 Dose: Not Given Ondansetron HCl (Zofran Inj) 4 mg IVP Q8H PRN PRN Reason: Nausea/Vomiting Oxycodone HCl (Oxycodone Immediate Release Tab) 30 mg PO Q4H PRN PRN Reason: Pain, severe (8-10) Last Admin: 12/06/17 12:28 Dose: 30 mg Pantoprazole Sodium (Protonix Ec Tab) 40 mg PO 0600 [facility] Last Admin: 12/06/17 05:49 Dose: 40 mg Sevelamer HCl (Renagel) 800 mg PO WM [facility] Last Admin: 12/06/17 12:28 Dose: 800 mg Simethicone (Mylicon Liq) 40 mg PO BID [facility] Last Admin: 12/06/17 11:02 Dose: 40 mg Valsartan (Diovan) 320 mg PO DAILY [facility] Last Admin: 12/06/17 11:02 Dose: Not Given Zolpidem Tartrate (Ambien) 10 mg PO HS [facility] PRN Reason: Protocol Last Admin: 12/06/17 02:02 Dose: 10 mg - Labs Labs: 12/05/17 11:06 12/05/17 11:06 PT 12.2 SECONDS (9.4-12.5) 12/02/17 19:06 INR 1.07 (0.93-1.08) 12/02/17 19:06 APTT 30.3 Seconds (25.1-36.5) 12/02/17 19:06 - Constitutional Appears: Chronically Ill - Head Exam Head Exam: NORMAL INSPECTION - Neck Exam Neck Exam: absent: Meningismus - Respiratory Exam Respiratory Exam: Decreased Breath Sounds - Cardiovascular Exam Cardiovascular Exam: +S1, +S2 - GI/Abdominal Exam GI & Abdominal Exam: Soft. absent: Tenderness Assessment and Plan - Assessment and Plan (Free Text) Plan: Assessment Consider sepsis due to bilateral healthcare-associated pneumonia with possible gram positive cocci and/or gram negative bacilli and/or atypical organisms ESRD on HD chronic CHF with CAD COPD history of pneumonia history of CVA history of cerebral aneurysm Plan continue on Zyvox, Aztreonam and Doxycycline day 4; blood cx are negative; PCT is elevated at 0.58 rapid flu test is negative will continue monitor clinically
--- NOTE | 2017-12-07 18:03 | PN ---
DATE: 12/07/2017 SUBJECTIVE: Patient is seen lying in bed. She is resting. She reports she is not feeling well today. She complains of constipation. She complains of some chest pressure. PHYSICAL EXAMINATION: GENERAL: Elderly lady lying in bed. VITAL SIGNS: Blood pressure 152/94, heart rate 59, respiratory rate 18 to 20, temperature 98. HEENT: Normocephalic, atraumatic. NECK: Supple, no JVD. LUNGS: Bilateral equal entry, no rales. CARDIAC: S1, S2. Regular rate and rhythm. No murmur, no rub. ABDOMEN: Obese, distended, soft, nontender, bowel sounds present. EXTREMITIES: No lower extremity edema. LABORATORY DATA: No new labs. MEDICATIONS: List reviewed. ASSESSMENT: 1. Bilateral pneumonia. 2. (?) Acute coronary syndrome. 3. Severe hypertension. 4. End-stage renal disease. 5. Anemia of chronic kidney disease. 6. Constipation. PLAN: 1. Continue antibiotics. 2. Next dialysis tomorrow. 3. Tap water enema. 4. Cardiology followup. Kayleen Flores MD
--- NOTE | 2017-12-08 00:13 | PN ---
DATE: 12/07/2017 REFERRING PHYSICIAN: Carlos Eduardo Resendiz MD. SUBJECTIVE: She is sitting at the side of the bed. Night was unremarkable. Feels okay. Still has some epigastric area discomfort and chest discomfort, not related to exertion. Denied any vomiting. No abdominal pain, no dysuria. No leg pain or leg swelling. PHYSICAL EXAMINATION: GENERAL: In no acute distress. VITAL SIGNS: Temp is 98, heart rate is 59, respiratory rate is 20, blood pressure 153/86, pulse ox 96% on 2 L nasal cannula. HEENT: Moist mucous membrane. No ulcers noted. NECK: Supple. No JVD. LUNGS: Fair airflow, no rhonchi. HEART: S1 and S2. ABDOMEN: Soft, nontender. No organomegaly. EXTREMITIES: There is no edema. NEUROLOGICAL: Awake and alert. Follows simple command. MEDICATIONS: She is on Ambien 10 mg at bedtime p.r.n., hydralazine 10 mg four times daily p.r.n., Azactam 100 mg q. 8 hours, Catapres 0.1 mg three times a day, Colace 100 mg daily, Diovan 320 mg daily, doxycycline 100 mg twice a day, DuoNeb q. 4 hours p.r.n. and four times a day round the clock, Ecotrin 81 mg daily, EMLA 1 g topical to the affected area, Motrin p.r.n. basis, simethicone 40 mg twice a day, nystatin oral suspension 5 mL four times a day, oxycodone immediate release 30 mg q. 4 hours p.r.n., Plavix 75 mg daily, prednisone 20 mg daily, Protonix 40 mg daily, Renagel 800 mg with the meals, labetalol 400 mg q. 8 hours, Xanax 1 mg four times daily, Zofran p.r.n., Zyvox 600 mg q. 12 hours. LABORATORY DATA: Reviewed, noted no new lab is available since yesterday. Microbiology: Blood cultures have been negative. IMPRESSION AND PLAN: Chronic obstructive lung disease, status post pneumonia, renal failure dialysis dependent, anxiety disorder, coronary artery disease which is nonobstructive in the past. Now, has atypical symptoms, scheduled for CAT tomorrow. If negative, may need to treat her gastroesophageal reflux disease aggressively. From a Pulmonary point of view, continue bronchodilator, continue antibiotics, gastric prophylaxis, fall precaution. Thank you and we will follow with you. Chloe Moran MD
[2017-12-08] MEDS: Nitroglycerin 2% Ointment Foilpak UD TOP SCH ×3 (00:30→19:42)
[2017-12-08] MEDS: Aztreonam 1 Gm in NS 100mL 100 ML IVPB SCH ×3 (05:17→21:13)
[2017-12-08] MEDS: Pantoprazole 40 mg EC Tab PO SCH (05:18)
[2017-12-08] MEDS ORDERED: Phenylephrine 10 mg/ml Inj ONE (06:40)
[2017-12-08] MEDS ORDERED: Lidocaine 2% Inj (20ml) ONE (06:40)
[2017-12-08] MEDS ORDERED: Iodixanol 320 MG/ML 100 ML BOTTLE IV ONE (06:41)
[2017-12-08] MEDS ORDERED: Midazolam 2 MG/2 ML VIAL ONE ×2 (06:41→07:55)
[2017-12-08] MEDS ORDERED: Iohexol 350mgl/ml 50 ML ONE (06:41)
[2017-12-08] MEDS ORDERED: Iodixanol 320 MG/ML 200 ML BOTTLE IV ONE (06:41)
[2017-12-08] MEDS ORDERED: HEPARIN SODIUM/NS 2,000 ML IV ONE (06:41)
[2017-12-08] MEDS ORDERED: Nitroglycerin 50mg in D5W 0 MG/0 ML BOTTLE IV ONE (06:41)
[2017-12-08] MEDS: Albuterol-Ipratrop 3 mg / 0.5 (3 ml) UD IH SCH ×4 (07:28→20:23)
[2017-12-08 08:48] VITALS: RESP 18
--- NOTE | 2017-12-08 08:54 | PN ---
DATE: 12/05/2017 REASON FOR CONSULTATION AND FOLLOWUP: Chest pain, cardiac evaluation, end-stage renal disease, on dialysis, status post nonobstructive coronary artery disease. Patient is complaining of chest pain last night, was sleeping, had a chest pain with T inversion. SUBJECTIVE: Denies any chest pain now, but felt at night, 10 minutes on left side of the chest. OBJECTIVE: GENERAL: Not in apparent distress. VITAL SIGNS: Temperature afebrile, heart rate 63, blood pressure 142/57. HEENT: PERRLA, intact. NECK: Supple. No carotid bruit or thyromegaly. CHEST: Clear to auscultation. HEART: S1 and S2 regular. ABDOMEN: Soft. EXTREMITIES: Clubbing and cyanosis, negative. LABORATORY DATA: Blood workup as follows: WBC 11.9, hemoglobin , hematocrit 30.6, platelet count 178. Chemistry shows sodium 130, potassium 4.6, chloride , anion gap of 19, BUN 53, creatinine 6. Troponin 0.01 x3 negative. IMPRESSION: Recurrent chest pain. Patient woke up from the sleep, significant symmetrical T-wave inversion with troponin remains negative. Patient had a cardiac catheterization that revealed only diagonal-2 disease, 70% stenosis with ejection fraction 55%. Cardiac catheterization done 05/20/2016, major epicardial coronaries. At that time, it was essentially free of significant disease, dated 05/20/2015 and reported nonobstructive coronary artery disease, 70% stenosis, preserved left ventricular function. Most recent repeat echo done yesterday shows ejection fraction 55%, [id number] mitral regurgitation, mild tricuspid regurgitation, small left pleural effusion. Though, chest pain appears to be very atypical, tenderness on palpation, but symmetrical T-wave inversion bothers and if the chest pain continues, the only option is to do the repeat cardiac catheterization. I discussed with the patient. Though chest pain appears to be again musculoskeletal, patient has possible effusion and pneumonia. RECOMMENDATION: Continue broad-spectrum antibiotic, continue ibuprofen, continue valsartan. If the chest pain continues with the T-wave inversion, we will consider cardiac catheterization. I discussed with the patient. Continue for now, antibiotic. We will follow with you. Thank you, for providing us the opportunity in taking care of the patient, Charla Ledesma. Chloe Smallwood MD [facility] # [id number]
--- NOTE | 2017-12-08 09:07 | PN ---
DATE: 12/04/2017 SUBJECTIVE: The patient seems doing better. Her chest pain more of sharp pain that comes with breathing and she has been seen by program paraprofessional, doing okay. Patient is also being treated for pneumonia, on IV antibiotics. Her breathing is better and she feels better. PHYSICAL EXAMINATION: VITAL SIGNS: Temperature 97.5, pulse rate 57, blood pressure 140/76, respirations are 20, saturation 98%. HEAD AND NECK: Normal. No JVD. No thyromegaly. CHEST: Clear. Good air entry. CARDIAC: First sound and second sound are normal. ABDOMEN: Soft, nontender. EXTREMITIES: No edema. NEUROLOGICAL: Normal. LABORATORY STUDIES: Last laboratory this was done on 12/03/2017: White count 11.2, hemoglobin 10.4, hematocrit 32.6, platelets 176. Troponin x3 was negative. Patient had a CT, which shows bilateral pneumonia. Patient also had a urinalysis, which showed white blood cell. IMPRESSION AND PLAN: 1. Bilateral pneumonia, probably nosocomial . We will continue giving doxycycline 100 b.i.d., Azactam 1 gm IV q.8 hours and Zyvox 600 mg q.12. 2. Acute chronic obstructive pulmonary disease exacerbation. Continue intravenous steroid. Continue inhaled bronchodilators. 3. Hypertension, it is better controlled now. Continue hydralazine 100 mg t.i.d., clonidine 0.5 mg t.i.d., Diovan 320 p.o. daily, and labetalol 400 mg three times a day. 4. Chronic renal failure, on hemodialysis. Patient is getting Renagel 800 mg with meals , getting PhosLo 667 p.o. with meals. Continue current treatment. 5. Coronary artery disease. Patient had an echo shows 50%, systolic function is good and diastolic dysfunction and could be in diastolic heart failure . We will continue current therapy. Continue beta-blockers. 6. Chronic back pain, osteoarthritis, possible disk disease and chronic anxiety. Continue oxycodone and Xanax. Continue current therapy. Follow up clinically. Carlos Eduardo Resendiz MD
[2017-12-08] MEDS: Linezolid 600 mg in D5W 300 ml 600 MG/300 ML BAG IVPB SCH ×3 (10:00→23:30)
[2017-12-08] MEDS: Lidocaine/Prilocaine 2.5%-2.5% Cream(30 gm) TOP SCH (10:00)
[2017-12-08] MEDS: Nystatin 100,000 Units/ml Oral Susp 5 ml UD PO SCH ×4 (10:00→21:23)
[2017-12-08] MEDS: Simethicone 40 mg/0.6 ml Liquid (30 ml) PO SCH ×2 (10:00→18:23)
--- NOTE | 2017-12-08 10:35 | PN ---
DATE: 12/07/2017 REASON FOR CONSULTATION AND FOLLOWUP: Chest pain, symmetrical T-wave inversion, unstable angina, acute coronary syndrome, end-stage renal disease on dialysis. SUBJECTIVE: The patient is still complaining of chest pain which is very tender. Not in apparent distress, lying flat on the bed. OBJECTIVE: GENERAL: Not in apparent distress. VITAL SIGNS: Temperature afebrile, heart rate 59, blood pressure 152/94. HEENT: PERRLA. Extraocular muscles intact. NECK: Supple. No carotid bruit or thyromegaly. CHEST: Clear to auscultation. HEART: S1 and S2, regular. ABDOMEN: Soft. EXTREMITIES: Clubbing and cyanosis negative. LABORATORY DATA: Blood workup as follows: WBC 11.9, hemoglobin 9.3, hematocrit 30.6, platelet count 178. Chemistry showed sodium 130, potassium 4.3, chloride 100, carbon dioxide 23, anion gap of 19. BUN 57, creatinine 6. Troponin 0.02. IMPRESSION AND PLAN: 1. Acute coronary syndrome with chest pain, symmetrical T-wave inversion with new , but no evidence of acute myocardial infarction, troponin remains negative. Rule out underlying coronary artery disease, positive for coronary ischemia versus coronary vasospasm, although the early chest pain was very tender on the left side of the chest, we are not worried about this, but the symmetrical T-wave inversion bothers new changes, so we will do the cardiac catheterization tomorrow. End-stage renal disease, on dialysis; hypertension; hyperlipidemia; diabetes. Discussed with the patient. The patient agreed. We will proceed for cardiac catheterization. The patient was loaded with aspirin, Plavix. Continue hydralazine p.r.n. Continue Plavix and n.p.o. after midnight for cardiac catheterization tomorrow. Risks, benefits, and alternatives were discussed with the patient. The patient agreed. We will proceed for cardiac catheterization. Continue interim nitro patch, aspirin, Plavix. Continue hydralazine, continue valsartan, and continue p.r.n. clonidine. Further recommendation after cardiac catheterization. Chloe Smallwood MD
--- NOTE | 2017-12-08 12:30 | PN ---
DATE: 12/08/2017 SUBJECTIVE: The patient is seen lying in bed. She is resting comfortably. PHYSICAL EXAMINATION: GENERAL: Middle-aged lady lying in bed. VITAL SIGNS: Blood pressure 166/83, heart rate 58, respiratory rate 18, temperature 98.7. HEENT: Normocephalic, atraumatic, positive pallor. NECK: Supple. No JVD. LUNGS: Bilateral equal air entry. No rales. CARDIAC: S1, S2, regular rate and rhythm. No murmur, no rub. ABDOMEN: Obese, distended, soft, nontender, bowel sounds present. EXTREMITIES: No lower extremity edema. INTAKE AND OUTPUT: Not charted. LABORATORY DATA: No new labs available. MEDICATIONS: List reviewed. ASSESSMENT: 1. Bilateral pneumonia. 2. Recurrent chest pain, status post acute coronary syndrome? 3. Severe hypertension. 4. End-stage renal disease. PLAN: 1. Dialysis today. 2. Continue antibiotics. 3. Cardiology followup. 4. Continue phosphate binders. Kayleen Flores MD
--- NOTE | 2017-12-08 12:37 | CARD ---
APPROVED REPORT Procedure(s) performed: Left Heart Catheterization HISTORY The patient is a 57 year-old with a history of : most recent EF: 51.4%. (EF Method: Echocardiogram), previous CHF, renal failure with dialysis, previous CVA remote >= 2 weeks, chronic lung disease, previous diagnostic cath, hypertension , cerebrovascular disease , HTN, ESRD on dialysis, unstable angina with Symmetrical deep T wave Inversion on all Precordial leads. INDICATION The indication(s) include : unstable angina , chest pain, dyspnea. CASE TECHNIQUE The patient was brought urgently to the Cardiac Catheterization Laboratory in a fasting state and was prepped and draped in a sterile manner. The right femoral groin was infiltrated with 2% Lidocaine subcutaneous anesthesia. A 6 Fr x 11 cm Vanna sheath was inserted into the right femoral artery without difficulty. Coronary angiography was performed using coronary diagnostic catheters. The left coronary system was accessed and visualized with a Diagnostic ,6 Fr JL 4 catheter. The right coronary system was accessed and visualized with a Diagnostic ,6 Fr JR 4 catheter. The left ventricle was accessed and visualized with a 6 Fr Pigtail catheter. Left ventricular/Aortic Valve gradient assessed on pullback. Left ventriculogram was performed in [place] projection. The patient tolerated the procedure well and there were no complications associated with the procedure. Vessel Analysis The patient's coronary anatomy is right dominant. The left main coronary artery is a medium size vessel with intimal irregularities and without significant stenosis. The left main bifurcates to the left anterior descending and circumflex. The left anterior descending artery is a medium size vessel with intimal irregularities and without significant stenosis. The first diagonal branch is a small size vessel with diffuse calcification noted throughout this vessel and without significant stenosis. There is a 60% stenosis in the ostial segment. small calibre vessel < 2 mmm in diameter The circumflex artery is a medium size vessel with intimal irregularities and without significant stenosis. The right coronary artery is a large size vessel with intimal irregularities and without significant stenosis. The right posterior descending artery is a medium size vessel with intimal irregularities and without significant stenosis. The right posterolateral branch is a medium size vessel with intimal irregularities and without significant stenosis. Left Ventricle The left ventricle is borderline in size with normal contractility. There was no cardiomyopathy. The left ventricular ejection fraction is estimated to be 65%. The left ventricular end diastolic pressure is 20 mmHg. There was no gradient across the aortic valve upon pullback. Conclusion Non Obstructive CAD limited to D1 ostial 60% stenosis, small calibre vessel <2 mm in diameter. Preserved LV Fx-Ef-65%, EDP-20 mmof Hg. Essentially unchanged from previous cath on 05/20/2016. Recommendations Smoking Cessation Aggressive Medical TherapyCardiac Risk Reduction Program CC; Dr. Resendiz / Marie Flores
--- NOTE | 2017-12-08 13:00 | PN ---
DATE: SUBJECTIVE: The patient reports doing better. She still has some __00:22___ otherwise no new complaints __00:30___. PHYSICAL EXAMINATION: VITAL SIGNS: Temperature 98, heart rate 57, blood pressure 153/87, respirations 19, saturation 100%. HEAD AND NECK: Normal. No JVD. No thyromegaly. CHEST: Clear with diminished breath sounds on both sides. CARDIAC: First sound and second sound normal. No murmur, rub, or gallop. ABDOMEN: Soft and nontender. EXTREMITIES: No edema. NEUROLOGICAL: Normal. IMPRESSION AND PLAN: 1. Chest pain ___1:31__ for cardiac cath. 2. Pleuritic chest pain, probably ___1:37__ likely to be pericarditis. Patient seems stable. She received Toradol shot, it did not help __1:49___ p.r.n. but it was not helping. We will continue hemodialysis for now and we will follow up ___1:57__. 3. Patient does have hypertension and we will continue current blood pressure medicine. Patient has __2:11___. Continue current blood pressure medication. 3. Chronic back pain and chronic anxiety. Continue oxycodone and Xanax. 4. Constipation. Continue current therapy. Patient is ___2:32__. 5. __2:39___. Continue aspirin. 6. Bilateral pneumonia. Continue Azactam, doxycycline, and __2:47___. 7. Chronic renal failure. Continue hemodialysis. Continue current therapy for now. CURRENT MEDICATIONS: Patient is getting Ambien, hydralazine 100 t.i.d., ___2:59__, Colace and patient is also getting __3:06___ t.i.d., ___3:07__, DuoNeb, Ecotrin 81 and Motrin p.r.n., ___3:19__ GI discomfort ___3:22__, nitropaste ointment, __3:24___, oxycodone p.r.n. 30 mg q.4 hours, PhosLo, Plavix 75 mg, __3:36___, Renagel, Xanax, Zyvox and Zofran p.r.n. Continue current therapy and follow up clinically. Carlos Eduardo Resendiz MD
[2017-12-08] MEDS: oxyCODONE 30 mg Immediate Release Tab PO PRN (13:13)
[2017-12-08 15:04] LABS: BASO # 0.01 K/mm3 (0.0-2.0); BASO % 0.1 % (0.0-3.0); EOS # 0.1 (0.0-0.7); EOS % 1.1 % (1.5-5.0); GRAN # 7.19 (1.4-6.5); GRAN % 72.6 % (50.0-68.0); HEMOGLOBIN 10.3 g/dL (12.0-16.0); LYMPH # 1.9 (1.2-3.4); LYMPH % 19.1 % (22.0-35.0); MEAN CELL VOLUME 95.2 fl (80.0-105.0); MEAN CORPUSCULAR HEMOGLOBIN 30.8 pg (25.0-35.0); MEAN CORPUSCULAR HGB CONC 32.4 g/dl (31.0-37.0); MEAN PLATELET VOLUME 11.2 fl (7.0-11.0); MONO # 0.7 (0.1-0.6); MONO % 7.1 % (1.0-6.0); RBC 3.34 10^6/uL (3.5-6.1); RED CELL DISTRIBUTION WIDTH 14.1 % (11.5-14.5); WHITE BLOOD COUNT 9.9 10^3/ul (4.5-11.0)
--- NOTE | 2017-12-08 15:08 | CP.PCM.PN ---
Subjective - Date & Time of Evaluation Date of Evaluation: 12/08/17 Time of Evaluation: 10:00 - Subjective Subjective: Cough is improving, still with occasional dyspnea, no fevers. Objective - Vital Signs/Intake and Output Vital Signs (last 24 hours): Temp Pulse Resp BP Pulse Ox 97.6 F 59 L 20 153/86 H 96 12/07/17 16:49 12/07/17 16:49 12/07/17 16:49 12/07/17 16:49 12/07/17 16:49 Intake and Output: 12/07/17 12/07/17 06:59 18:59 Intake Total 300 Output Total 0 Balance 300 - Medications Medications: Current Medications Albuterol/Ipratropium (Duoneb 3 Mg/0.5 Mg (3 Ml) Ud) 3 ml IH QIDRESP [facility] Last Admin: 12/07/17 13:17 Dose: Not Given Albuterol/Ipratropium (Duoneb 3 Mg/0.5 Mg (3 Ml) Ud) 3 ml IH [id number] PRN PRN Reason: Shortness of Breath Last Admin: 12/03/17 01:55 Dose: 3 ml Alprazolam (Xanax) 1 mg PO QID [facility] PRN Reason: Protocol Last Admin: 12/07/17 15:37 Dose: Not Given Aspirin (Ecotrin) 81 mg PO DAILY [facility] Last Admin: 12/07/17 09:55 Dose: 81 mg Calcium Acetate (Phoslo) 667 mg PO WM [facility] Last Admin: 12/07/17 11:43 Dose: Not Given Clonidine HCl (Catapres) 0.1 mg PO TID [facility] Last Admin: 12/07/17 15:36 Dose: Not Given Clopidogrel Bisulfate (Plavix) 75 mg PO DAILY [facility] Last Admin: 12/07/17 09:55 Dose: 75 mg Docusate Sodium (Colace) 100 mg PO DAILY PRN PRN Reason: Constipation Last Admin: 12/07/17 06:56 Dose: 100 mg Doxycycline Hyclate (Doryx) 100 mg PO Q12 [facility] PRN Reason: Protocol Last Admin: 12/07/17 09:55 Dose: 100 mg Hydralazine HCl (Apresoline) 10 mg PO QID PRN PRN Reason: for sbp>170 Hydralazine HCl (Apresoline) 100 mg PO TID [facility] Last Admin: 12/07/17 15:34 Dose: Not Given Aztreonam (Azactam 1 Gm) 100 mls @ 100 mls/hr IVPB Q8 [facility] PRN Reason: Protocol Stop: 12/10/17 09:46 Last Admin: 12/07/17 06:40 Dose: 100 mls/hr Linezolid (Zyvox 600mg/300ml D5w) 600 mg in 300 mls @ 200 mls/hr IVPB Q12 [facility] PRN Reason: Protocol Stop: 12/10/17 10:01 Last Admin: 12/07/17 09:59 Dose: 200 mls/hr Ibuprofen (Motrin Tab) 600 mg PO Q6H PRN PRN Reason: chest pain Labetalol HCl (Trandate) 400 mg PO Q8 [facility] Last Admin: 12/07/17 15:37 Dose: Not Given Lidocaine/Prilocaine (Emla) 1 gm TOP MOWEFR [facility] Last Admin: 12/05/17 10:29 Dose: 1 % Nitroglycerin (Nitro-Bid 2% Oint) 1 ea TOP Q6H [facility] Last Admin: 12/07/17 12:36 Dose: Not Given Nystatin (Nystatin Oral Susp) 5 ml PO QID [facility] Last Admin: 12/07/17 15:36 Dose: Not Given Ondansetron HCl (Zofran Inj) 4 mg IVP Q8H PRN PRN Reason: Nausea/Vomiting Oxycodone HCl (Oxycodone Immediate Release Tab) 30 mg PO Q4H PRN PRN Reason: Pain, severe (8-10) Last Admin: 12/07/17 06:47 Dose: 30 mg Pantoprazole Sodium (Protonix Ec Tab) 40 mg PO 0600 [facility] Last Admin: 12/07/17 06:47 Dose: 40 mg Prednisone (Prednisone Tab) 20 mg PO DAILY [facility] Last Admin: 12/07/17 09:55 Dose: 20 mg Sevelamer HCl (Renagel) 800 mg PO WM [facility] Last Admin: 12/07/17 11:44 Dose: Not Given Simethicone (Mylicon Liq) 40 mg PO BID [facility] Last Admin: 12/07/17 09:56 Dose: Not Given Valsartan (Diovan) 320 mg PO DAILY [facility] Last Admin: 12/07/17 10:21 Dose: Not Given Zolpidem Tartrate (Ambien) 10 mg PO HS [facility] PRN Reason: Protocol Last Admin: 12/06/17 22:39 Dose: 10 mg - Labs Labs: 12/05/17 11:06 12/05/17 11:06 PT 12.2 SECONDS (9.4-12.5) 12/02/17 19:06 INR 1.07 (0.93-1.08) 12/02/17 19:06 APTT 30.3 Seconds (25.1-36.5) 12/02/17 19:06 - Constitutional Appears: Chronically Ill - Head Exam Head Exam: NORMAL INSPECTION - Neck Exam Neck Exam: absent: Meningismus - Respiratory Exam Respiratory Exam: Decreased Breath Sounds - Cardiovascular Exam Cardiovascular Exam: +S1, +S2 - GI/Abdominal Exam GI & Abdominal Exam: Soft. absent: Tenderness Assessment and Plan - Assessment and Plan (Free Text) Plan: Assessment Consider sepsis due to bilateral healthcare-associated pneumonia with possible gram positive cocci and/or gram negative bacilli and/or atypical organisms ESRD on HD chronic CHF with CAD COPD history of pneumonia history of CVA history of cerebral aneurysm Plan continue on Zyvox, Aztreonam and Doxycycline day 5; blood cx are negative; PCT is elevated at 0.58; complete 4-7 days of therapy rapid flu test is negative will continue monitor clinically
--- NOTE | 2017-12-08 15:21 | PN ---
DATE: REASON FOR CONSULTATION: Followup chest pain, symmetrical T-wave inversions, unstable angina, acute coronary syndrome, end-stage renal disease on dialysis. SUBJECTIVE: The patient denies any chest pain, shortness of breath or any palpitations. The patient not in apparent distress. PHYSICAL EXAMINATION: As follows: VITAL SIGNS: Temperature afebrile, heart rate 60, blood pressure 149/76. HEENT: PERRLA. Extraocular muscles intact. NECK: Supple. No carotid bruit or thyromegaly. CHEST: Clear to auscultation. HEART: S1 and S2 regular. ABDOMEN: Soft. EXTREMITIES: Clubbing and cyanosis, negative. LABORATORY DATA: Blood workup as follows: WBC11.9, hemoglobin 9.7, hematocrit 30.6, platelet count 178. Chemistry shows sodium 130, potassium 4.3, chloride 100, carbon dioxide 23, anion gap of 19, BUN 57, creatinine 6, troponin 0.01, negative. IMPRESSION: 1. Acute coronary syndrome, unstable angina, coronary artery disease, status post the patient underwent cardiac catheterization that revealed essentially normal left main, bifurcated left anterior descending, circumflex left anterior descending artery showed no flow obstructive stenosis noted. Diagonal 1 has some ostial disease 60 to 70%, but small caliber vessel, circumflex essential for significant disease, right coronary artery essential for significant disease. Left ventricular gram shows ejection fraction 65%, it appears in the range of 20. 2. Nonobstructive coronary artery disease, preserved left ventricular function, medical treatment recommended. We will follow up with you. 3. Essentially unchanged cardiac catheterization from 2 years. Thank you, Dr. Resendiz, for providing us the opportunity in taking care of Charla Ledesma. Chloe Smallwood MD THO
[2017-12-08 15:26] LABS: ALB/GLOB RATIO 1.3 (1.1-1.8); ALBUMIN 3.5 g/dL (3.0-4.8)
--- NOTE | 2017-12-08 16:27 | PN ---
DATE: 12/08/2017 SUBJECTIVE: The patient is complaining of chest pain, left-sided . PHYSICAL EXAM: ABDOMEN: Soft nontender. EXTREMITIES: No edema . LABORATORY DATA: White count 11.9, hemoglobin 9.7, hematocrit 30.2, platelet count 160. Chemistry shows sodium 134, potassium 4.3, chloride , bicarbonate , BUN is 57, creatinine is 6, , calcium 8.2, . IMPRESSION AND PLAN 1. Chest pain. . The patient does have history of coronary artery disease and see how she did and we will follow up with log chipper. The plan is to get a cardiac catheterization . 2. Bilateral pneumonia, continue IV antibiotics as per Infectious Disease consult. The patient getting doxycycline and getting Zyvox . Continue current IV antibiotics. 3. Chronic obstructive pulmonary disease, continues to be on bronchodilators. 4. Chronic renal failure, stable, on hemodialysis. 5. The patient does have chronic anemia, she gastrointestinal workup in the past. We will follow up clinically. Continue current therapy. Carlos Eduardo Resendiz MD
--- NOTE | 2017-12-09 02:05 | PN ---
DATE: PULMONARY PROGRESS NOTE REFERRING PHYSICIAN: Carlos Eduardo Resendiz MD. SUBJECTIVE: Patient is lying in the bed, head at 45 degrees. Had a cardiac cath done. No significant coronary artery disease. LV function was good. Still has that epigastric discomfort. Admits to have snoring, daytime sleepy. No nausea. No vomiting or diarrhea. No leg pain or leg swelling. OBJECTIVE: GENERAL: In no acute distress. VITAL SIGNS: Temp is 98, heart rate 60, respiratory rate is 18, blood pressure 134/76, pulse ox 96% on 2 L nasal cannula. HEENT: Moist mucous membrane. Crowded airway. NECK: Supple. No JVD. LUNGS: Have fair airflow with rhonchi. HEART: S1 and S2. ABDOMEN: Soft, nontender. No organomegaly. EXTREMITIES: There is no edema. NEUROLOGIC: Awake, alert. Follows simple command. MEDICATIONS: She is on Ambien 10 mg at bedtime p.r.n., also hydralazine 10 mg four times daily p.r.n., Azactam 1 g IV q. 8 hours, Catapres 0.1 mg three times a day, Colace 100 mg daily p.r.n., Diovan 320 mg daily, doxycycline 100 mg twice a day, DuoNeb q. 4 hours p.r.n., albuterol/Atrovent nebulizer four times daily, Ecotrin 81 mg daily, lidocaine/prilocaine at affected area, Motrin 600 mg q. 6 hours p.r.n., Mylicon mg twice a day, nystatin oral suspension 5 mL four times daily, oxycodone immediate release 30 mg q. 4 hours p.r.n., Plavix 75 mg daily, prednisone 20 mg daily, Protonix 40 mg daily, Renagel 800 mg with meals, labetalol 300 mg q. 8 hours, Xanax 1 mg four times daily, Zofran p.r.n., Zyvox 600 mg daily. LABORATORY DATA: Shows hemoglobin 10.3, hematocrit 31.3, WBC 9.9, platelet is 177. Sodium 136, potassium 4.1, chloride 99, bicarbonate 23, BUN 78, creatinine 8.2, glucose 89, calcium is 8.0, phosphorus is 6.2, magnesium 2.0, AST 15, ALT 22, alk phos is 54, albumin is 3.5. Microbiology: Blood cultures have been negative. IMPRESSION AND PLAN: Chronic obstructive lung disease, status post pneumonia, renal failure, dialysis dependent, anxiety disorder, nonobstructive coronary artery disease, may have gastroesophageal reflux disease, sleep apnea syndrome. We will suggest starting a proton inhibitor. Keep head at 45 degrees. Avoid sedation. Gastric prophylaxis. Outpatient attended sleep study. Thank you and we will follow with you. Chloe Moran MD
[2017-12-09] MEDS: Nitroglycerin 2% Ointment Foilpak UD TOP SCH ×2 (06:24)
[2017-12-09] MEDS: Pantoprazole 40 mg EC Tab PO SCH (06:25)
[2017-12-09] MEDS: Aztreonam 1 Gm in NS 100mL 100 ML IVPB SCH (06:25)
[2017-12-09] MEDS: Albuterol-Ipratrop 3 mg / 0.5 (3 ml) UD IH SCH ×2 (07:22→11:12)
[2017-12-09 07:24] LABS: BASO # 0.02 K/mm3 (0.0-2.0); BASO % 0.2 % (0.0-3.0); EOS # 0.1 (0.0-0.7); EOS % 1.6 % (1.5-5.0); GRAN # 6.69 (1.4-6.5); GRAN % 77.6 % (50.0-68.0); HEMOGLOBIN 10.2 g/dL (12.0-16.0); LYMPH # 1.2 (1.2-3.4); LYMPH % 13.8 % (22.0-35.0); MEAN CELL VOLUME 97.3 fl (80.0-105.0); MEAN CORPUSCULAR HEMOGLOBIN 30.7 pg (25.0-35.0); MEAN CORPUSCULAR HGB CONC 31.6 g/dl (31.0-37.0); MEAN PLATELET VOLUME 10.9 fl (7.0-11.0); MONO # 0.6 (0.1-0.6); MONO % 6.8 % (1.0-6.0); RBC 3.32 10^6/uL (3.5-6.1); RED CELL DISTRIBUTION WIDTH 14.4 % (11.5-14.5); WHITE BLOOD COUNT 8.6 10^3/ul (4.5-11.0)
--- NOTE | 2017-12-09 08:20 | CP.PCM.PN ---
Subjective - Date & Time of Evaluation Date of Evaluation: 12/09/17 Time of Evaluation: 07:25 - Subjective Subjective: Seen and examined by me and Dr. Leon Reason for consultation and follow up: Unstable angina, acute coronary syndrome, end stage renal disease. Lying in bed, sleeping but easily arousable. denies chest pain or shortness of breath Objective - Vital Signs/Intake and Output Vital Signs (last 24 hours): Temp Pulse Resp BP Pulse Ox 97.5 F L 60 18 134/76 96 12/08/17 12:21 12/08/17 21:06 12/08/17 12:21 12/08/17 21:06 12/07/17 16:49 Intake and Output: 12/09/17 12/09/17 06:59 18:59 Intake Total 0 Output Total 0 Balance 0 - Medications Medications: Current Medications Albuterol/Ipratropium (Duoneb 3 Mg/0.5 Mg (3 Ml) Ud) 3 ml IH QIDRESP [facility] Last Admin: 12/09/17 07:22 Dose: Not Given Albuterol/Ipratropium (Duoneb 3 Mg/0.5 Mg (3 Ml) Ud) 3 ml IH [id number] PRN PRN Reason: Shortness of Breath Last Admin: 12/03/17 01:55 Dose: 3 ml Alprazolam (Xanax) 1 mg PO QID [facility] PRN Reason: Protocol Last Admin: 12/08/17 21:22 Dose: 1 mg Aspirin (Ecotrin) 81 mg PO DAILY [facility] Last Admin: 12/08/17 10:00 Dose: Not Given Calcium Acetate (Phoslo) 667 mg PO WM [facility] Last Admin: 12/08/17 18:22 Dose: 667 mg Clonidine HCl (Catapres) 0.1 mg PO TID [facility] Last Admin: 12/08/17 18:00 Dose: 0.1 mg Clopidogrel Bisulfate (Plavix) 75 mg PO DAILY [facility] Last Admin: 12/08/17 10:00 Dose: Not Given Docusate Sodium (Colace) 100 mg PO DAILY PRN PRN Reason: Constipation Last Admin: 12/07/17 06:56 Dose: 100 mg Doxycycline Hyclate (Doryx) 100 mg PO Q12 [facility] PRN Reason: Protocol Last Admin: 12/08/17 21:06 Dose: 100 mg Hydralazine HCl (Apresoline) 10 mg PO QID PRN PRN Reason: for sbp>170 Hydralazine HCl (Apresoline) 100 mg PO TID [facility] Last Admin: 12/08/17 18:00 Dose: 100 mg Aztreonam (Azactam 1 Gm) 100 mls @ 100 mls/hr IVPB Q8 [facility] PRN Reason: Protocol Stop: 12/10/17 09:46 Last Admin: 12/09/17 06:25 Dose: Not Given Linezolid (Zyvox 600mg/300ml D5w) 600 mg in 300 mls @ 200 mls/hr IVPB Q12 [facility] PRN Reason: Protocol Stop: 12/10/17 10:01 Last Admin: 12/08/17 23:30 Dose: Not Given Labetalol HCl (Trandate) 400 mg PO Q8 [facility] Last Admin: 12/09/17 06:24 Dose: Not Given Lidocaine/Prilocaine (Emla) 1 gm TOP MOWEFR [facility] Last Admin: 12/08/17 10:00 Dose: Not Given Nitroglycerin (Nitro-Bid 2% Oint) 1 ea TOP Q6H [facility] Last Admin: 12/09/17 06:24 Dose: Not Given Nystatin (Nystatin Oral Susp) 5 ml PO QID [facility] Last Admin: 12/08/17 21:23 Dose: 5 ml Ondansetron HCl (Zofran Inj) 4 mg IVP Q8H PRN PRN Reason: Nausea/Vomiting Last Admin: 12/08/17 21:13 Dose: 4 mg Oxycodone HCl (Oxycodone Immediate Release Tab) 30 mg PO Q4H PRN PRN Reason: Pain, severe (8-10) Last Admin: 12/08/17 13:13 Dose: 30 mg Pantoprazole Sodium (Protonix Ec Tab) 40 mg PO 0600 [facility] Last Admin: 12/09/17 06:25 Dose: Not Given Sevelamer HCl (Renagel) 800 mg PO WM [facility] Last Admin: 12/08/17 18:23 Dose: Not Given Simethicone (Mylicon Liq) 40 mg PO BID [facility] Last Admin: 12/08/17 18:23 Dose: Not Given Valsartan (Diovan) 320 mg PO DAILY [facility] Last Admin: 12/08/17 10:00 Dose: Not Given Zolpidem Tartrate (Ambien) 10 mg PO HS [facility] PRN Reason: Protocol Last Admin: 12/08/17 21:22 Dose: 10 mg - Labs Labs: 12/09/17 06:45 12/09/17 06:45 PT 12.2 SECONDS (9.4-12.5) 12/02/17 19:06 INR 1.07 (0.93-1.08) 12/02/17 19:06 APTT 30.3 Seconds (25.1-36.5) 12/02/17 19:06 - Constitutional Appears: Well, No Acute Distress - Head Exam Head Exam: NORMAL INSPECTION - Eye Exam Eye Exam: Normal appearance - ENT Exam ENT Exam: Mucous Membranes Moist - Neck Exam Neck Exam: Normal Inspection - Respiratory Exam Respiratory Exam: Clear to Ausculation Bilateral, NORMAL BREATHING PATTERN - Cardiovascular Exam Cardiovascular Exam: REGULAR RHYTHM, +S1, +S2 - GI/Abdominal Exam GI & Abdominal Exam: Soft, Normal Bowel Sounds - Extremities Exam Extremities Exam: Normal Inspection Additional comments: right groin no hematoma no bledding - Neurological Exam Neurological Exam: Alert, Awake, Oriented x3 - Psychiatric Exam Psychiatric exam: Normal Affect - Skin Skin Exam: Intact, Warm Assessment and Plan - Assessment and Plan (Free Text) Assessment: End stage renal disease, Acute coronary syndrome,unstable angina,coronary artery disease, had cardiac catheterization 12/08/17 - cath results showed normal left main, bifurcated LAD, circumflex normal, diagonal 1 has 60-70% ostial disease but small caliber vessel, circumflex and RCA with essential disease LV EF 65%. Non obstructive coronary artery disease with preserved left ventricular function. Plan: Essential unchanged cardiac catheterization compared from 2 years ago Medical treatment Vital signs stable No angina Continue current medications Will follow up Plan and treatment reviewed with Dr. Leon
[2017-12-09 08:45] VITALS: BP 138/77; PULSE 63; TEMP 98.2; O2SAT 95
[2017-12-09] MEDS: Nystatin 100,000 Units/ml Oral Susp 5 ml UD PO SCH (10:47)
[2017-12-09] MEDS: Linezolid 600 mg in D5W 300 ml 600 MG/300 ML BAG IVPB SCH (10:51)
[2017-12-09] MEDS: Simethicone 40 mg/0.6 ml Liquid (30 ml) PO SCH (10:52)
--- NOTE | 2017-12-09 11:33 | PN ---
DATE: 12/08/2017 SUBJECTIVE: The patient is status post cardiac cath, seems doing well. No chest pain. Not short of breath. No local complications. The patient is not sitting flat as supposed to, otherwise, she is stable. PHYSICAL EXAMINATION: VITAL SIGNS: Her temperature is 97.5, heart rate 54, blood pressure 159/86, respirations 18, and saturating 95%. HEAD AND NECK: Normal. No JVD. No thyromegaly. CHEST: Clear bilaterally. CARDIAC: First sound and second sounds are normal. ABDOMEN: Soft, nontender. EXTREMITIES: No edema. NEUROLOGIC: Normal. LABORATORY DATA: Laboratory study shows white count of 9.9, hemoglobin 10.3, hematocrit 31.8, platelets 177. Chemistry noted for sodium 136, potassium 4.1, chloride 99, bicarb 23, BUN 78, creatinine 8.2, blood sugar 89. IMPRESSION AND PLAN: 1. Dyspnea, chest pain. The patient underwent cardiac catheterization, which is normal. The patient has no history of coronary stents, and discussed with Dr. Smallwood, who confirmed as the patient claimed that, "the patient does not have any history of coronary stents." Nonobstructive coronary, medical therapy. 2. Severe hypertension, history of cerebral bleed due to hypertension, compliance is a question. The patient is advised to continue religiously on her blood pressure medications, which include hydralazine 100 mg t.i.d., clonidine 0.1 mg t.i.d., valsartan 320, and labetalol 400 mg 3 times a day. Continue current therapy. Follow up clinically. 3. Bilateral pneumonia, is doing better. Continue Zyvox. Continue doxycycline and Azactam. 4. Pleuritis. Continue ibuprofen p.r.n. 5. Chronic renal failure, on hemodialysis, stable. 6. Chronic osteoarthritis of the spine with chronic anxiety. Continue oxycodone. Continue Xanax. We will continue current therapy for now. The patient is getting Plavix, baby aspirin, Protonix, Xanax, and oxycodone. We will follow up clinically. The patient is advised to follow up. We will consider doing outpatient sleep studies. Carlos Eduardo Resendiz MD
--- NOTE | 2017-12-09 14:30 | PN ---
DATE: 12/09/2017 Addendum to the initial progress note dictated by our nurse practitioner, Jess Aguilar. REASON FOR ADDENDUM: Cath site reviewed. Right femoral artery appears okay. Dressing removed . The patient is complaining of diarrhea diarrhea workup. No evidence of chest pain. We will continue current treatment. We will follow with you. Medical treatment recommended as mentioned yesterday. Nonobstructive coronary artery disease. Major epicardial coronary artery looks essentially normal except diagonal I has 60%-70% stenosis ostial, small caliber vessels, medical treatment nonischemic chest pain, preserved LV function. Thank you Dr. Resendiz for providing us the opportunity in taking care of the patient, Baltazar. Chloe Smallwood MD
--- NOTE | 2017-12-09 22:08 | PN ---
DATE: 12/09/2017 SUBJECTIVE: The patient is seen early this morning in room 366, bed 3. No fevers and no chills. PHYSICAL EXAMINATION: VITAL SIGNS: Temperature is 98, blood pressure is 138/70, respiratory rate of 18, heart rate of 63. HEENT: Examination of HEENT is unremarkable. NECK: Supple. LUNGS: Have decreased breath sounds. HEART: Normal S1, S2. ABDOMEN: Soft, nontender. LABORATORY DATA: Laboratory examination reveals the patient to have a white count of 8.6, hemoglobin of 10, platelets of 164. Chemistries reveals a BUN of 59, creatinine of 6.7. ASSESSMENT AND PLAN: This is a 57-year-old female, seen early this morning in 366, bed 3 with sepsis; bilateral healthcare-associated pneumonia, possible gram-positive cocci, possible gram-negative karol pneumonia with atypical organisms; end-stage renal disease, on hemodialysis; chronic congestive heart failure; coronary artery disease and on day #6 of therapy with 4 to 7 days of Zyvox, Azactam and oxycodone. The patient was doing well as of early this morning. David Novak MD
--- NOTE | 2017-12-11 06:56 | DS ---
SUBJECTIVE: Patient was admitted with respiratory distress, found to have pneumonia bilaterally, pleuritic chest pain. Echocardiogram was good LV function. There is no evidence of pericarditis; however, patient does have pleurisy, pleuritic chest pain, which seems to be mildly better with the Toradol and with the ibuprofen p.r.n. Patient also had a cardiac catheterization, which shows no significant obstructions. Recommend only medical treatment. She also was given IV antibiotic including doxycycline, Azactam and Zyvox. Patient stable. I discussed with Dr. Win to discharge the patient on doxycycline 100 b.i.d. for 5 more days plus Flagyl 500 q.8 hours for 10 days. Patient has mild diarrhea. Stool c. diff was sent as outpatient. Patient was clinically stable. She wants to go home and was discharged home. Recommend the patient to follow. Medication, be compliant with it and follow up as outpatient. PHYSICAL EXAMINATION ON DISCHARGE: VITAL SIGNS: Temperature 98.2, heart rate 63, blood pressure is 138/77, which is very good for her and respiratory rate 18 and saturation 95% on room air. HEAD AND NECK: Normal. No JVD. No thyromegaly. CHEST: Clear. Good air entry. CARDIAC: First sound and second sound normal. ABDOMEN: Soft, nontender. EXTREMITIES: No edema. NEUROLOGIC: Normal. LABORATORY DATA: On discharge, laboratory studies shows white count 8.6, hemoglobin 10.2, hematocrit 32.3, platelets 164. Chemistries show sodium 138, potassium 4.2, chloride 100, bicarb 27, BUN 59, creatinine 6.7 and phosphorus is 8. Patient did have hemodialysis yesterday after the cardiac catheterization and seems to be doing very well. DISCHARGE DIAGNOSES: As follows: 1. Chest pain, noncardiac. 2. Status post cardiac catheterization with nonobstructive coronary. No history of a stent. 3. Hypertension, uncontrolled. It is better now. 4. Bilateral pneumonia, treated, doing well. Discharged on doxycycline for 5 more days. 5. Diarrhea, probably medication related. Rule out Clostridium difficile. 6. Chronic back pain. 7. Chronic anxiety. 8. Chronic renal failure. PLAN: Discharge the patient on the following medicines, Renagel 800 mg t.i.d., omeprazole 40 mg daily, Trandate or labetalol 400 mg three times a day, hydralazine 100 mg four times a day, Colace 100 b.i.d., calcium acetate or PhosLo 667 mg t.i.d., nebulizer treatment, Xanax 1 mg four times a day, oxycodone 30 mg q.4 hours. Patient has been taking these medicines on a regular basis in the hospital too. Clonidine 0.1 mg b.i.d., Ambien 10 mg at bedtime, spironolactone 25 b.i.d., Flagyl 500 mg q.8 and doxycycline 100 mg b.i.d. Patient also taking Diovan 320 mg. We will discuss with the patient about spironolactone, maybe we will discontinue that. Continue current therapy. Carlos Eduardo Resendiz MD
== END 2017-12-09 12:38 | disposition home or self-care (01) | DRG 543 ==
LOC: ED 17:29 → ERH 20:23 → 2RNO 12-03 01:17 → 5RNO 12-04 14:28 → 2RNO 12-05 01:44 → 3RNO 12-05 21:44 → 2RNO 12-08 08:34 → 3RNO 12-08 13:55
PROVIDERS: ADMIT Internal Medicine; ATTEND Internal Medicine
PROC: 5A1D70Z Performance of Urinary Filtration, Intermittent, Less than 6 Hours Per Day (ICD-10-PCS; 2017-12-03)
PROC: 3E0F7GC Introduction of Other Therapeutic Substance into Respiratory Tract, Via Natural or Artificial Opening (ICD-10-PCS; 2017-12-03)
PROC: 5A1D70Z Performance of Urinary Filtration, Intermittent, Less than 6 Hours Per Day (ICD-10-PCS; 2017-12-05)
PROC: 4A023N7 Measurement of Cardiac Sampling and Pressure, Left Heart, Percutaneous Approach (ICD-10-PCS; principal; 2017-12-08)
PROC: B211YZZ Fluoroscopy of Multiple Coronary Arteries using Other Contrast (ICD-10-PCS; 2017-12-08)
PROC: B215YZZ Fluoroscopy of Left Heart using Other Contrast (ICD-10-PCS; 2017-12-08)
PROC: 5A1D70Z Performance of Urinary Filtration, Intermittent, Less than 6 Hours Per Day (ICD-10-PCS; 2017-12-08)
DX: I25.110 Atherosclerotic heart disease of native coronary artery with unstable angina pectoris (principal); J18.9 Pneumonia, unspecified organism; I13.2 Hypertensive heart and chronic kidney disease with heart failure and with stage 5 chronic kidney disease, or end stage renal disease; E11.22 Type 2 diabetes mellitus with diabetic chronic kidney disease; N18.6 End stage renal disease; I50.32 Chronic diastolic (congestive) heart failure; I08.1 Rheumatic disorders of both mitral and tricuspid valves; E87.5 Hyperkalemia; E83.39 Other disorders of phosphorus metabolism; J44.1 Chronic obstructive pulmonary disease with (acute) exacerbation; J44.0 Chronic obstructive pulmonary disease with (acute) lower respiratory infection; Z99.2 Dependence on renal dialysis; N25.81 Secondary hyperparathyroidism of renal origin; D63.1 Anemia in chronic kidney disease; K59.00 Constipation, unspecified; E03.9 Hypothyroidism, unspecified; E78.5 Hyperlipidemia, unspecified; G89.29 Other chronic pain; M47.9 Spondylosis, unspecified; Y95 Nosocomial condition; F41.9 Anxiety disorder, unspecified; I25.2 Old myocardial infarction; Z91.15 Patient's noncompliance with renal dialysis; Z91.19 Patient's noncompliance with other medical treatment and regimen; Z86.73 Personal history of transient ischemic attack (TIA), and cerebral infarction without residual deficits; Z79.84 Long term (current) use of oral hypoglycemic drugs; Z95.5 Presence of coronary angioplasty implant and graft; Z87.891 Personal history of nicotine dependence

== ENCOUNTER 2018-11-10 13:00 | Inpatient (IN) | payer MEDICAID ==
[2018-11-10 13:11] VITALS: BMI 24.3
[2018-11-10 13:31] LABS: VENOUS BLOOD GAS BASE EXCESS -9.1 mmol/L (0.0-2.0); VENOUS BLOOD GAS PO2 68 mm/Hg (30-55); VENOUS BLOOD PH 7.12 (7.32-7.43)
--- NOTE | 2018-11-10 13:39 | ED PDOC ---
Arrival/HPI - General Chief Complaint: Shortness Of Breath Time Seen by Provider: 11/10/18 13:08 Historian: Patient - History of Present Illness Narrative History of Present Illness (Text): 11/10/18 13:48 58 year old female, whose past medical history includes COPD, hypertension, hypertension bleed, and end stage renal disease with dialysis (M,W,F), who presents to the emergency department complaining of shortness of breath. Patient reports she did not go to dialysis yesterday because she has been feeling very weak, it is hard for her to move around or ambulate. She indicates associated fever, diarrhea, and chest pain constantly for the past 2 days. of note, patient had an infection in her forearm shunt last week and was put on antibiotics for treatment. She denies headache, dizziness, abdominal pain, nausea, vomiting, back pain, neck pain, or any other complaint. 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 Flores Time/Duration: < week Symptom Onset: Gradual Symptom Course: Unchanged Activities at Onset: Light Context: Home Past Medical History - Provider Review Nursing Documentation Reviewed: Yes - Past History Past History: Non-Contributing - Infectious Disease Hx of Infectious Diseases: None - Tetanus Immunization Tetanus Immunization: Unknown - Reproductive Menopause: Yes - Cardiac Hx Cardiac Disorders: Yes ([place]) Hx Angina: Yes Hx Congestive Heart Failure: Yes Hx Hypertension: Yes Hx Peripheral Edema: Yes - Pulmonary Hx Respiratory Disorders: Yes Hx Chronic Obstructive Pulmonary Disease (COPD): Yes Hx Pneumonia: Yes - Neurological Hx Neurological Disorder: Yes (BRAIN ANEURSYM WITH SX) HX Cerebrovascular Accident: Yes - HEENT Hx HEENT Disorder: Yes (eyeglasses) - Renal Hx Renal Disorder: Yes Hx Dialysis: Yes (M,W,F) - Endocrine/Metabolic Hx Endocrine Disorders: No - Hematological/Oncological Hx Blood Disorders: Yes Hx Anemia: Yes (blood transfusion 2013) - Integumentary Hx Dermatological Disorder: Yes - Musculoskeletal/Rheumatological Hx Falls: No - Gastrointestinal Hx Gastrointestinal Disorders: Yes Hx Gastroesophageal Reflux: Yes - Genitourinary/Gynecological Hx Genitourinary Disorders: No - Psychiatric Hx Psychophysiologic Disorder: Yes Hx Anxiety: Yes Hx Panic Disorder: Yes Hx Substance Use: No - Past Surgical History Past Surgical History: Unable to Obtain - Surgical History Hx Cardiac Catheterization: Yes Other/Comment: brain aneurysm with sx. R arm av shunt. cardiac cath today 05/20/16. Fistula placed in R arm x2 - Anesthesia Hx Anesthesia: Yes Hx Anesthesia Reactions: Yes Hx Malignant Hyperthermia: No - Suicidal Assessment Feels Threatened In Home Enviroment: No Family/Social History - Physician Review Nursing Documentation Reviewed: Yes Family/Social History: No Known Family HX Smoking Status: Former Smoker Hx Alcohol Use: No Hx Substance Use: No Hx Substance Use Treatment: No Allergies/Home Meds Allergies/Adverse Reactions: Allergies heparin Allergy (Verified 11/13/18 07:57) RASH Penicillins Allergy (Verified 12/02/17 17:37) ANAPHYLAXIS Home Medications: Home Meds Medication Instructions Recorded Confirmed RX: ALPRAZolam [Xanax] 1 mg PO QID 08/19/13 12/02/17 RX: Docusate [Colace] 100 mg PO DAILY PRN 02/07/15 12/02/17 RX: Spironolactone 25 mg PO BID 02/07/15 12/02/17 Zolpidem Tartrate [Ambien] 10 mg PO HS 02/07/15 12/02/17 cloNIDine [clonidine HCl] 0.1 mg PO BID 02/07/15 12/02/17 Albuterol Sulfate [Proair Hfa] 0.09 mg IH Q4H PRN 01/23/16 12/02/17 Calcium Acetate [Phoslo] 667 mg PO TID 01/23/16 12/02/17 Omeprazole [Prilosec] 40 mg PO DAILY 01/23/16 12/02/17 RX: Hydralazine HCl 100 mg PO QID 01/23/16 12/02/17 RX: oxyCODONE [oxyCODONE Immediate 30 mg PO Q4H PRN 01/23/16 12/02/17 Release Tab] Sevelamer [Renagel] 800 mg PO TID 03/14/16 12/02/17 Review of Systems - Physician Review All systems were reviewed & negative as marked: Yes - Review of Systems Constitutional: Fevers, Other (generalized weakness ) Respiratory: SOB. absent: Cough Cardiovascular: Chest Pain Gastrointestinal: Diarrhea. absent: Abdominal Pain, Nausea, Vomiting Musculoskeletal: absent: Back Pain, Neck Pain Neurological: absent: Headache, Dizziness Physical Exam Vital Signs Reviewed: Yes Vital Signs Temp Pulse Resp BP Pulse Ox 02/05/19 13:34 22 11/10/18 13:01 99.2 F 112 H 24 201/124 H 89 L Temperature: Afebrile Blood Pressure: Hypertensive Pulse: Tachycardic Respiratory Rate: Normal Appearance: Positive for: Well-Appearing, Non-Toxic, Comfortable Pain Distress: None Mental Status: Positive for: Alert and Oriented X 3 - Systems Exam Head: Present: Atraumatic, Normocephalic Pupils: Present: PERRL Extroacular Muscles: Present: EOMI Conjunctiva: Present: Normal Mouth: Present: Moist Mucous Membranes Neck: Present: Normal Range of Motion Respiratory/Chest: Present: Clear to Auscultation, Good Air Exchange, Wheezes (mild expiratory wheezes bilaterally), Rales (rales at the bases ). No: Respiratory Distress, Accessory Muscle Use Cardiovascular: Present: Normal S1, S2, Tachycardic. No: Regular Rate and Rhythm, Murmurs Abdomen: No: Tenderness, Distention, Peritoneal Signs Back: Present: Normal Inspection Upper Extremity: Present: Other (right forearm shunt with positive thrill and bruee). No: Cyanosis, Edema Lower Extremity: Present: Normal Inspection. No: Edema Neurological: Present: GCS=15, CN II-XII Intact, Speech Normal (speaks in full sentences ) Skin: Present: Warm, Dry, Normal Color. No: Rashes Psychiatric: Present: Alert, Oriented x 3, Normal Insight, Normal Concentration Medical Decision Making ED Course and Treatment: 11/10/18 13:36 Impression: 58 year old female, who presents to the emergency department complaining of shortness of breath. Plan: -- VBG -- EKG -- Labs -- Chest X-ray -- Blood Culture -- Reassess and disposition Prior Visits: Notes and results from previous visits were reviewed. Progress Notes: 11/10/18 14:15 Placed her on bipap to help with her shortness of breath, 97% on bipap. 11/10/18 15:[address] Resendiz who accepts patient into his service. He request patient to be placed on vancomycin 500mg, levoprin 250mg, and SOLU-medrol 30mg. He also requests consults with Dr. Moran for pulmonology, Dr. Flores for nephrology, and Dr. Lam for infectious disease. 11/10/18 15:[address] Marrero who is covering for Dr. Flores. he says he will get her dialyzed today. 11/10/18 15:00 EKG reviewed, shows Sinus Tachycardia at 115 bpm, LVH. Non-specific ST/T wave changes. - Lab Interpretations Lab Results: pO2 68 mm/Hg (30-55) H 11/10/18 13:20 VBG pH 7.12 (7.32-7.43) L* 11/10/18 13:20 VBG pCO2 65.0 (40-60) H 11/10/18 13:20 VBG HCO3 21.1 mmol/l (21-28) 11/10/18 13:20 VBG Total CO2 23.1 mmol.L (22-28) 11/10/18 13:20 VBG O2 Sat (Calc) 92.3 % (40-65) H 11/10/18 13:20 VBG Base Excess -9.1 mmol/L (0.0-2.0) L 11/10/18 13:20 VBG Potassium 3.9 mmol/L (3.6-5.2) 11/10/18 13:20 Sodium 132.0 mmol/L (132-148) 11/10/18 13:20 Chloride 96.0 mmol/L (98-107) L 11/10/18 13:20 Glucose 234 mg/dl (65-105) H 11/10/18 13:20 Lactate 2.1 mmol/L (0.7-2.1) 11/10/18 13:20 FiO2 21.0 % 11/10/18 13:20 Crit Value Called To Hedy stauffer 11/10/18 13:20 Crit Value Called By [id number] 11/10/18 13:20 Blood Gas Notified Time 1330 11/10/18 13:20 - RAD Interpretation Narrative RAD Interpretations (Text): 11/10/18 15:33 Chest X-ray reviewed, shows: IMPRESSION: Suspected right basilar infiltrate. Follow-up advised. Analytics Lead: Radiologist - EKG Interpretation EKG Interpretation (Text): 11/10/18 13:57 EKG reviewed, shows: Sinus tachycardia at 115 bpm with normal intervals, normal axis, and LVH. Interpreted by ED Physician: Yes Type: 12 lead EKG - Scribe Statement The provider has reviewed the documentation as recorded by the Scribe Teena Bebawy Provider Maryellen Attestation: All medical record entries made by the Maryellen were at my direction and personally dictated by me. I have reviewed the chart and agree that the record accurately reflects my personal performance of the history, physical exam, medical decision making, and the department course for this patient. I have also personally directed, reviewed, and agree with the discharge instructions and disposition. Disposition/Present on Arrival - Present on Arrival Any Indicators Present on Arrival: No History of DVT/PE: No History of Uncontrolled Diabetes: No Urinary Catheter: No History of Decub. Ulcer: No History Surgical Site Infection Following: None - Disposition Have Diagnosis and Disposition been Completed?: Yes Diagnosis: Congestive heart failure (CHF), End stage renal disease on dialysis Disposition: HOSPITALIZED Disposition Time: 15:30 Patient Plan: Admission Condition: STABLE
[2018-11-10 13:59] LABS: BASO # 0.01 K/mm3 (0.0-2.0); BASO % 0.1 % (0.0-3.0); HEMOGLOBIN 12.3 g/dL (12.0-16.0); LYMPH # 0.9 (1.2-3.4); LYMPH % 10.3 % (22.0-35.0); MEAN CELL VOLUME 94.6 fl (80.0-105.0); MEAN CORPUSCULAR HEMOGLOBIN 30.4 pg (25.0-35.0); MEAN CORPUSCULAR HGB CONC 32.1 g/dl (31.0-37.0); MEAN PLATELET VOLUME 11.1 fl (7.0-11.0); MONO # 0.7 (0.1-0.6); MONO % 7.4 % (1.0-6.0); RBC 4.05 10^6/uL (3.5-6.1); RED CELL DISTRIBUTION WIDTH 14.8 % (11.5-14.5); WHITE BLOOD COUNT 9.2 10^3/uL (4.5-11.0)
[2018-11-10 14:17] LABS: ALB/GLOB RATIO 1.3 (1.1-1.8); ALBUMIN 4.4 g/dL (3.0-4.8); CALCIUM 8.4 mg/dL (8.4-10.5)
--- NOTE | 2018-11-10 14:46 | RAD ---
Date of service: 11/10/2018 HISTORY: sob COMPARISON: 12/02/2017 FINDINGS: LUNGS: Abnormal opacity at right lung base. Concerning for developing pneumonia. Follow-up advised. No other abnormal opacity elsewhere. PLEURA: No significant pleural effusion identified, no pneumothorax apparent. CARDIOVASCULAR: No aortic atherosclerotic calcification present. Normal cardiac size. No pulmonary vascular congestion. OSSEOUS STRUCTURES: No significant abnormalities. VISUALIZED UPPER ABDOMEN: Normal. OTHER FINDINGS: None. IMPRESSION: Suspected right basilar infiltrate. Follow-up advised.
[2018-11-10 14:52] LABS: TROPONIN I 0.2 ng/mL
[2018-11-10] MEDS ORDERED: Vancomycin 500mg in NS 500 MG/100 ML BAG IVPB STA (16:13)
[2018-11-10] MEDS ORDERED: levoFLOXacin 250 mg in D5W 250 MG/50 ML BAG IVPB STA (16:14)
[2018-11-10] MEDS ORDERED: MethylPREDNISolone 40 mg Vial IVP STA (16:16)
[2018-11-10 16:53] LABS: VENOUS BLOOD GAS PO2 81 mm/Hg (30-55)
--- NOTE | 2018-11-10 18:27 | CON ---
DATE: 11/10/2018 The patient is admitted for Dr. Carlos Eduardo Resendiz. REFERRING PHYSICIAN: Dr. Resendiz. REASON FOR CONSULTATION: To provide dialysis services for the patient known to me, who presents with CHF and a right lower lobe pneumonia after having missed dialysis yesterday. HISTORY OF PRESENT ILLNESS: The patient is a 58-year-old white female with a history of end-stage renal disease, on chronic maintenance hemodialysis Friday, Friday, and Friday at [facility]. The patient has been for the most part noncompliant with dialysis. She comes for dialysis anywhere from one to two times a week. History of hypertension, difficult to control, history of asthma and COPD, past history of cigarette smoking, history of anxiety, history of anemia secondary to chronic kidney disease, history of secondary hyperparathyroidism. The patient presented to the emergency room today with increasing shortness of breath. She is noted to be in mild CHF, and she is also noted to have a possible right lower lobe pneumonia. The patient is being admitted for evaluation for IV antibiotic therapy and for dialysis. PAST MEDICAL HISTORY: Significant for end-stage renal disease, history of hypertension, history of asthma with COPD secondary to cigarette smoking, history of anxiety, history of anemia, history of secondary hyperparathyroidism. MEDICATIONS AT HOME: Include that of oxycodone, clonidine, Ambien, Renagel, Prilosec, labetalol, hydralazine, Colace, questionable PhosLo, albuterol and Xanax. ALLERGIES: THE PATIENT IS ALLERGIC TO PENICILLIN. CURRENT MEDICATIONS IN HOSPITAL: Include that of Levaquin x1 dose and vancomycin x1 dose. SOCIAL HISTORY: The patient has a past history of cigarette smoking. She has smoked in excess of one pack per day for many years. No history of alcohol use presently. FAMILY HISTORY: Positive for hypertension and diabetes. REVIEW OF SYSTEMS: GENERAL: The patient states appetite and weight have been stable. ENT: Denies any hearing or visual problems. PULMONARY: History of chronic shortness of breath exacerbated by the recent presentation of pneumonia and CHF. History of COPD, history of asthma. CARDIAC: History is negative. GI: No nausea, vomiting, diarrhea, constipation or abdominal pain. : History of end-stage renal disease. FIXER BOARDING ROOM: Postmenopausal. ENDOCRINE: History of secondary hyperparathyroidism. No history of diabetes. MUSCULOSKELETAL: No issues. NEURO: No past history of CVA, TIA, seizures or syncope. HEME-ONC: History of anemia secondary to chronic kidney disease. PSYCHIATRIC: History is positive for anxiety and depression. PHYSICAL EXAMINATION: GENERAL: The patient is currently seen in the ER, bed 8. She is awaiting the start of dialysis. VITAL SIGNS: Blood pressure presently is ranging from 135 to 175 systolic, diastolic ranging from 99 to 103. Pulse is 69. Temperature is 99.2. Respiratory rate is 17. Pulse ox of 99%. The patient remains on BiPAP. HEENT: Exam shows her to be normocephalic, atraumatic. Conjunctivae are pink. Sclerae nonicteric. Pupils are equal and reactive to light and accommodation. Extraocular muscles are intact. Posterior pharynx appears normal. NECK: Supple. No neck vein distention, thyromegaly, or lymphadenopathy. No bruits. CHEST: Scattered rhonchi and wheezing. Positive rales, right lower base with decreased breath sounds in the right lower base. CARDIOVASCULAR: Shows a regular rate and rhythm with no audible murmurs, rubs or gallops. ABDOMEN: Soft. Bowel sounds normal. No rebound, guarding or masses. BACK: No CVAT. No spinal tenderness. EXTREMITIES: Show a working AV fistula in right upper extremity. No lower extremity edema. No cyanosis or clubbing. Distal lower extremity pulses are 2+ bilaterally. NEURO: Shows her be alert, oriented x3 with no gross focal motor or sensory deficits noted. LABORATORY DATA AND IMAGING STUDIES: Chest x-ray on admission shows CHF with a infiltrate at the right base. EKG shows sinus tachycardia with LVH and left atrial enlargement. Echocardiogram done in 2018 showed an ejection fraction of 50-55% with LVH with MR/AI/TR. Labs: CBC, white blood cell count today 9.2, hemoglobin 12 with a platelet count of 169,000. Blood gas today shows a pH of 7.12 with a pO2 of 68, pCO2 of 65, bicarbonate level of 21. Lactic acid level was 2.1. Chemistries today showed a sodium level of 135 with a potassium of 4.3, chloride 97 with a CO2 of 20, BUN 67 with a creatinine of 8.5. Glucose is 222. Magnesium level is 2.4. AST is elevated at 77. ALT is normal. LDH is 716. Troponin is 0.20. BNP is elevated at 164,000. Albumin is 4.4. Microbiology, no cultures available for comment. ASSESSMENT: 1. End-stage renal disease. For the most part the patient has been grossly noncompliant with dialysis coming anywhere from one to two times a week. This causes her to become short of breath and be intradialytic. The patient presents today with increasing shortness of breath in part secondary to possible developing right lower lobe pneumonia in part secondary to volume overload. The patient will receive dialysis in the emergency room. We will target 2 liters off and perhaps increase ultrafiltration as tolerated. 2. History of hypertension. Blood pressure currently elevated secondary to volume overload. We will need to check with the patient to see exactly which of the outpatient blood pressure medication she is actually taking. 3. History of asthma and chronic obstructive pulmonary disease secondary to long history of cigarette smoking. The patient will continue inhalation therapy. 4. Likely right lower lobe pneumonia. The patient received antibiotic therapy. Perhaps Pulmonary evaluation. Perhaps ID evaluation. 5. History of anxiety and depression. Currently stable. 6. History of anemia. Hemoglobin is acceptable at 12.3. She does have anemia secondary to chronic kidney disease. 7. History of secondary hyperparathyroidism. The patient had been on binders in the past. She has used Renagel and PhosLo. We will need to verify with her which binder she is actually taking. 8. History of left ventricular hypertrophy with AI/MR/TR, currently stable. PLAN: 1. Dialysis tonight in the emergency room. We will target 2 to 2.5 liters off as tolerated. 2. Agree with empiric antibiotic therapy. 3. ID and Pulmonary consult pending. 4. Stressed to the patient the importance of compliance with dialysis. She misses anywhere from one to two dialysis treatments a week. 5. Check all cultures. 6. Expect her situation to dramatically improve post dialysis this evening. Thank you for letting me partake and share in the care of our mutual patient. Brian Marin MD
[2018-11-10] MEDS ORDERED: Vancomycin 1.25 GM in Sodium Chloride 0.9% 500 ML IVPB ONE (20:38)
[2018-11-10] MEDS ORDERED: Aztreonam 1 Gm in NS 100mL 100 ML IVPB SCH (22:00)
[2018-11-10] MEDS ORDERED: Aztreonam 1 Gm in NS 100mL 100 ML IVPB ONE (22:00)
--- NOTE | 2018-11-10 22:54 | CARD ---
APPROVED REPORT Date of service: 11/10/2018 EKG Measurement Heart [id number] <Conclusion> Sinus tachycardia Possible Left atrial enlargement Left ventricular hypertrophy Nonspecific ST abnormality Abnormal ECG
[2018-11-11] MEDS ORDERED: oxyCODONE 30 mg Immediate Release Tab PO PRN (00:30)
--- NOTE | 2018-11-11 07:33 | CP.PCM.CON ---
History of Present Illness - History of Present Illness History of Present Illness: Awake, alert, non productive cough Reason for consultation: Cardiac evaluation of shortness of breath Brief history of present illness: A 58 year old female who came in to the ER due to generalized weakness. She claimed to have seen PMD last week for arm infection and was put on antibiotics. However felt so weak and complaining of shortness of breath. History of COPD, hypertension, myocardial infarction,CHF, CVA, brain aneurysm with surgery, ESRD on hemodialysis 3x a week (MWF), right arm AV shunt , anemia, GERD, anxiety, former smoker. Seen and examined by me and Dr. Smallwood Review of Systems - Review of Systems All systems: reviewed and no additional remarkable complaints except Review of Systems: as per HPI Past Patient History - Infectious Disease Hx of Infectious Diseases: None - Tetanus Immunizations Tetanus Immunization: Unknown - Past Medical History & Family History Past Medical History?: Yes - Past Social History Smoking Status: Former Smoker - CARDIAC Hx Cardiac Disorders: Yes Hx Angina: Yes Hx Congestive Heart Failure: Yes Hx Hypertension: Yes Hx Peripheral Edema: Yes Other/Comment: Heart Attack 4mths ago - PULMONARY Hx Chronic Obstructive Pulmonary Disease (COPD): Yes Hx Pneumonia: Yes - NEUROLOGICAL Hx Neurological Disorder: Yes (headaches) HX Cerebrovascular Accident: Yes Hx Dizziness: Yes Other/Comment: brain aneursym w surgery - HEENT Hx HEENT Problems: Yes (glasses) - RENAL Hx Chronic Kidney Disease: Yes (ESRD) Hx Dialysis: Yes (M,W,F) Date of Last Dialysis Treatment: 11/10/18 Hx Renal Failure: Yes - ENDOCRINE/METABOLIC Hx Hypothyroidism: Yes - HEMATOLOGICAL/ONCOLOGICAL Hx Blood Disorders: Yes Hx Anemia: Yes (blood transfusion 2013) - INTEGUMENTARY Hx Dermatological Problems: Yes - MUSCULOSKELETAL/RHEUMATOLOGICAL Hx Falls: No - GASTROINTESTINAL Hx Gastroesophageal Reflux: Yes - GENITOURINARY/GYNECOLOGICAL Hx Genitourinary Disorders: No - PSYCHIATRIC Hx Anxiety: Yes Hx Bipolar Disorder: Yes Hx Panic Symptoms: Yes - SURGICAL HISTORY Hx Cardiac Catheterization: Yes Other/Comment: brain aneurysm with sx. R arm av shunt. cardiac cath today 05/20/16. Fistula placed in R arm x2 - ANESTHESIA Hx Anesthesia: Yes Hx Anesthesia Reactions: Yes Hx Malignant Hyperthermia: No Meds Allergies/Adverse Reactions: Allergies Allergy/AdvReac Type Severity Reaction Status Date / Time Penicillins Allergy ANAPHYLAXIS Verified 12/02/17 17:37 - Medications Medications: Current Medications Calcium Acetate (Phoslo) 667 mg PO WM ANGEL Docusate Sodium (Colace) 100 mg PO DAILY PRN PRN Reason: Constipation Hydralazine HCl (Apresoline) 100 mg PO TID ANGEL Doxycycline Hyclate 100 mg/ (Sodium Chloride) 100 mls @ 100 mls/hr IVPB Q12 S CH; Protocol Last Admin: 11/10/18 23:01 Dose: 100 mls/hr Aztreonam 250 mg/ Sodium (Chloride) 100 mls @ 100 mls/hr IVPB Q12 ANGEL Stop: 11/17/18 22:01 Oxycodone HCl (Oxycodone Immediate Release Tab) 30 mg PO Q6H PRN PRN Reason: Pain, severe (8-10) Zolpidem Tartrate (Ambien) 5 mg PO HS ANGEL; Protocol Physical Exam - Constitutional Appears: Non-toxic, No Acute Distress - Eye Exam Eye Exam: Normal appearance Pupil Exam: NORMAL ACCOMODATION - ENT Exam ENT Exam: Mucous Membranes Dry - Respiratory Exam Respiratory Exam: Decreased Breath Sounds, NORMAL BREATHING PATTERN Additional comments: minimal rales at bases,minimal expiratory wheezing - Cardiovascular Exam Cardiovascular Exam: REGULAR RHYTHM, +S1 Additional comments: Telemetry NSR - GI/Abdominal Exam GI & Abdominal Exam: Normal Bowel Sounds, Soft - Extremities Exam Additional comments: right AV shunt positive bruit - Neurological Exam Neurological exam: Alert, Oriented x3 - Psychiatric Exam Psychiatric exam: Anxious - Skin Skin Exam: Dry, Normal Color, Warm Results - Vital Signs Recent Vital Signs: Last Vital Signs Temp 98.8 F 11/11/18 06:00 Pulse 76 11/11/18 06:00 Resp 18 11/11/18 06:00 BP 176/96 H 11/11/18 06:00 Pulse Ox 99 11/11/18 06:00 - Labs Result Diagrams: 11/10/18 13:20 11/10/18 13:20 Labs: Laboratory Results - last 24 hr 11/10/18 11/10/18 11/10/18 04:39 13:20 13:20 WBC 9.2 RBC 4.05 Hgb 12.3 D Hct 38.3 MCV 94.6 MCH 30.4 MCHC 32.1 RDW 14.8 H Plt Count 169 MPV 11.1 H Neut % (Auto) 82.2 H Lymph % (Auto) 10.3 L Sibley % (Auto) 7.4 H Eos % (Auto) 0.0 L Baso % (Auto) 0.1 Lymph # (Auto) 0.9 L S[place]y # (Auto) 0.7 H Eos # (Auto) 0.0 Baso # (Auto) 0.01 Absolute Neuts (auto) 7.54 H pO2 81 H 68 H VBG pH 7.30 L 7.12 L* VBG pCO2 46.0 65.0 H VBG HCO3 22.6 21.1 VBG Total CO2 24.0 23.1 VBG O2 Sat (Calc) 96.5 H 92.3 H VBG Base Excess -4.0 L -9.1 L VBG Potassium 4.1 3.9 Sodium 131.0 L 132.0 Chloride 98.0 96.0 L Glucose 155 H 234 H Lactate 1.3 2.1 FiO2 50.0 21.0 Crit Value Called To Hedy stauffer Crit Value Called By 3769 Blood Gas Notified Time 1330 Potassium Carbon Dioxide Anion Gap BUN Creatinine Est GFR ( Amer) Est GFR (Non-Af Amer) Random Glucose Calcium Magnesium Total Bilirubin AST ALT Alkaline Phosphatase Lactate Dehydrogenase Total Creatine Kinase Troponin I NT-Pro-B Natriuret Pep Total Protein Albumin Globulin Albumin/Globulin Ratio Venous Blood Potassium 4.1 3.9 11/10/18 13:20 WBC RBC Hgb Hct MCV MCH MCHC RDW Plt Count MPV Neut % (Auto) Lymph % (Auto) Sibley % (Auto) Eos % (Auto) Baso % (Auto) Lymph # (Auto) Sibley # (Auto) Eos # (Auto) Baso # (Auto) Absolute Neuts (auto) pO2 VBG pH VBG pCO2 VBG HCO3 VBG Total CO2 VBG O2 Sat (Calc) VBG Base Excess VBG Potassium Sodium 135 Chloride 97 L Glucose Lactate FiO2 Crit Value Called To Crit Value Called By Blood Gas Notified Time Potassium 4.3 Carbon Dioxide 20 L Anion Gap 22 H BUN 67 H Creatinine 8.5 H* D Est GFR ( Amer) 6 Est GFR (Non-Af Amer) 5 Random Glucose 222 H Calcium 8.4 Magnesium 2.4 H Total Bilirubin 0.7 AST 77 H D ALT 16 Alkaline Phosphatase 69 Lactate Dehydrogenase 716 H Total Creatine Kinase 124 Troponin I 0.20 H* D NT-Pro-B Natriuret Pep [id number] H Total Protein 7.7 Albumin 4.4 Globulin 3.3 Albumin/Globulin Ratio 1.3 Venous Blood Potassium Assessment & Plan - Assessment and Plan (Free Text) Assessment: A 58 year old female who came in to the ER due to generalized weakness. She claimed to have seen PMD last week for arm infection and was put on antibiotics. However felt so weak and complaining of shortness of breath. History of COPD, hypertension,myocardial infarction, CHF, CVA, brain aneurysm with surgery, ESRD on hemodialysis 3x a week (MWF), right arm AV shunt , anemia, GERD, anxiety, former smoker. Chest x ray showed suspected right basilar infiltrate. On IV antibiotics. Denies chest pain, troponin elevated secondary to chronic renal insufficiency. Will treat medically. Will start aspirin daily. On BIPAP for shortness of breath. EKG showed ST, non specific ST abnormality. Pneumonia. Had hemodialysis yesterday and pulled 1.5 liters of fluid. Review of previous cardiac work up: 11/23/17 Echo done- LVEF 50-55%, Trace to mild AR,mild to moderate MR Mild TR RVSP 26 mmHg, small pleural effusion 12/08/17 Cath done- Non-obstructive CAD limited to D1 ostial 60% stenosis, small caliber, LVEF 65%, unchanged from previous cath on 05/20/16 Plan: Denies chest pain, slight shortness of breath, on BIPAP Will give Xopenex, claimed that albuterol gives her palpitations Heart rate controlled Blood pressure uncontrolled On Hydralazine 100 mg TID Continue current treatment Continue current medications Renal on consult Pulmonary on consult Continue IV antibiotics as ordered by ID TSH, HgbA1C, lipid profile Further recommendation during hospital course Will follow up Plan and treatment discussed with Dr. Smallwood Thank you Dr. Resendiz for the opportunity of taking care of Charla Reveles Date & Time Date: 11/11/18 Time: 06:10
[2018-11-11] MEDS: Levalbuterol 1.25 MG/3 ML Inhal Soln UD IH SCH ×3 (08:43→19:27)
[2018-11-11 08:54] LABS: HEMOGLOBIN 12.5 g/dL (12.0-16.0); MEAN CELL VOLUME 92.6 fl (80.0-105.0); MEAN CORPUSCULAR HEMOGLOBIN 29.7 pg (25.0-35.0); MEAN CORPUSCULAR HGB CONC 32.1 g/dl (31.0-37.0); MEAN PLATELET VOLUME 10.5 fl (7.0-11.0); RBC 4.21 10^6/uL (3.5-6.1); RED CELL DISTRIBUTION WIDTH 14.6 % (11.5-14.5); WHITE BLOOD COUNT 7.7 10^3/uL (4.5-11.0)
[2018-11-11 09:06] LABS: ALB/GLOB RATIO 1.3 (1.1-1.8); ALBUMIN 4.2 g/dL (3.0-4.8); CALCIUM 8.3 mg/dL (8.4-10.5)
[2018-11-11] MEDS ORDERED: Non Formulary Medication (Hydralazine Hcl [Hydralazine Hcl] 100 MG) PO SCH (10:00)
[2018-11-11] MEDS ORDERED: Darbepoetin Alfa 25 mcg/ml Inj IVP ONE (12:56)
[2018-11-11] MEDS ORDERED: Doxercalciferol 4 mcg/2 ml Inj IV ONE (12:56)
--- NOTE | 2018-11-11 14:11 | PN ---
DATE: 11/11/2018 SUBJECTIVE: The patient is seen in the dialysis unit. She is awake. She is alert. She is complaining of cough. She is complaining of shortness of breath. PHYSICAL EXAMINATION: GENERAL: An elderly lady lying in bed. VITAL SIGNS: Blood pressure 220/110, heart rate 74, respiratory rate 18, temperature 98.8. HEENT: Normocephalic, atraumatic. Positive pallor. NECK: Supple. No JVD. LUNGS: Bilateral equal entry, bilateral equal expansion, bilateral rhonchi, prolonged expiration. CARDIAC: S1 and S2, regular rate and rhythm. No murmur. No rub. ABDOMEN: Soft, nondistended, nontender. Bowel sounds present. EXTREMITIES: No lower extremity edema. INTAKE AND OUTPUT: 2500 ultrafiltration on dialysis. LABORATORY DATA: WBC 7.7, hemoglobin 12.5, hematocrit 39, platelets 153. Sodium 137, potassium 4.1, chloride 94, CO2 of 29, BUN 50, creatinine 5.3, glucose 111, calcium 8.3, AST 54, ALT 20. BNP was 164,000 yesterday, albumin 4.2. MEDICATIONS: List reviewed. ASSESSMENT AND PLAN: 1. Chronic obstructive pulmonary disease exacerbation. 2. Congestive heart failure, diastolic dysfunction. 3. End-stage renal disease. 4. Severe hypertension. 5. Noncompliance with treatment. PLAN: 1. Add clonidine 0.2 t.i.d. for blood pressure control. 2. Respiratory treatments as per Pulmonary. 3. Stable dialysis. 4. Empiric antibiotics as per ID recommendations. Kayleen Flores MD
--- NOTE | 2018-11-11 14:26 | CP.PCM.CON ---
<Martell Rosa - Last Filed: 11/11/18 14:22> History of Present Illness - History of Present Illness History of Present Illness: ID Consult NOte: 58 F with PMHx of COPD, hypertension, CAD ,CHF, CVA, brain aneurysm with surgery, ESRD on hemodialysis 3x a week (MWF), right arm AV shunt , anemia, GERD, and anxiety presents with sob and cough. patient states that a few days ago she went to her senior applications engineer and was placed on an abx for in infection near the R arm fistula. She subsequently started feeling worse with sob and cough. This was associated with some generalized weakness. She went to her PMD and was given another abx (doxy) however it did not help. ID consulted for pneumonia. PMHx: as above PSHx: AV shunt ALL: PCN SH: denies smoking, drinking, or drugs FH:denies Review of Systems - Review of Systems All systems: reviewed and no additional remarkable complaints except Past Patient History - Infectious Disease Hx of Infectious Diseases: None - Tetanus Immunizations Tetanus Immunization: Unknown - Past Medical History & Family History Past Medical History?: Yes - Past Social History Smoking Status: Former Smoker - CARDIAC Hx Cardiac Disorders: Yes Hx Angina: Yes Hx Congestive Heart Failure: Yes Hx Hypertension: Yes Hx Peripheral Edema: Yes Other/Comment: Heart Attack 4mths ago - PULMONARY Hx Chronic Obstructive Pulmonary Disease (COPD): Yes Hx Pneumonia: Yes - NEUROLOGICAL Hx Neurological Disorder: Yes (headaches) HX Cerebrovascular Accident: Yes Hx Dizziness: Yes Other/Comment: brain aneursym w surgery - HEENT Hx HEENT Problems: Yes (glasses) - RENAL Hx Chronic Kidney Disease: Yes (ESRD) Hx Dialysis: Yes (M,W,F) Date of Last Dialysis Treatment: 11/10/18 Hx Renal Failure: Yes - ENDOCRINE/METABOLIC Hx Hypothyroidism: Yes - HEMATOLOGICAL/ONCOLOGICAL Hx Blood Disorders: Yes Hx Anemia: Yes (blood transfusion 2013) - INTEGUMENTARY Hx Dermatological Problems: Yes - MUSCULOSKELETAL/RHEUMATOLOGICAL Hx Falls: No - GASTROINTESTINAL Hx Gastroesophageal Reflux: Yes - GENITOURINARY/GYNECOLOGICAL Hx Genitourinary Disorders: No - PSYCHIATRIC Hx Anxiety: Yes Hx Bipolar Disorder: Yes Hx Panic Symptoms: Yes - SURGICAL HISTORY Hx Cardiac Catheterization: Yes Other/Comment: brain aneurysm with sx. R arm av shunt. cardiac cath today 05/20/16. Fistula placed in R arm x2 - ANESTHESIA Hx Anesthesia: Yes Hx Anesthesia Reactions: Yes Hx Malignant Hyperthermia: No Meds Allergies/Adverse Reactions: Allergies Allergy/AdvReac Type Severity Reaction Status Date / Time Penicillins Allergy ANAPHYLAXIS Verified 12/02/17 17:37 - Medications Medications: Current Medications Aspirin (Ecotrin) 81 mg PO DAILY [facility] Calcium Acetate (Phoslo) 667 mg PO WM [facility] Last Admin: 11/11/18 08:29 Dose: 667 mg Clonidine HCl (Catapres) 0.1 mg PO Q6H PRN PRN Reason: Systolic Blood Pressure Clonidine HCl (Catapres) 0.2 mg PO TID [facility] Docusate Sodium (Colace) 100 mg PO DAILY PRN PRN Reason: Constipation Hydralazine HCl (Apresoline) 100 mg PO TID [facility] Last Admin: 11/11/18 11:05 Dose: 100 mg Doxycycline Hyclate 100 mg/ (Sodium Chloride) 100 mls @ 100 mls/hr IVPB Q12 [facility]; Protocol Last Admin: 11/10/18 23:01 Dose: 100 mls/hr Aztreonam 250 mg/ Sodium (Chloride) 100 mls @ 100 mls/hr IVPB Q12 [facility] Stop: 11/17/18 22:01 Labetalol HCl (Trandate) 200 mg PO Q8H [facility] Levalbuterol HCl (Xopenex) 1.25 mg IH TIDRESP [facility] Last Admin: 11/11/18 14:03 Dose: 1.25 mg Oxycodone HCl (Oxycodone Immediate Release Tab) 30 mg PO Q6H PRN PRN Reason: Pain, severe (8-10) Zolpidem Tartrate (Ambien) 5 mg PO HS [facility]; Protocol Physical Exam - Constitutional Appears: No Acute Distress - Head Exam Head Exam: ATRAUMATIC, NORMOCEPHALIC - Eye Exam Eye Exam: EOMI - ENT Exam ENT Exam: Mucous Membranes Moist - Respiratory Exam Respiratory Exam: Clear to Auscultation Bilateral. absent: Rales, Rhonchi, Wheezes - Cardiovascular Exam Cardiovascular Exam: RRR, +S1, +S2 - GI/Abdominal Exam GI & Abdominal Exam: Soft. absent: Tenderness - Extremities Exam Extremities exam: Negative for: calf tenderness, pedal edema - Neurological Exam Neurological exam: Alert - Psychiatric Exam Psychiatric exam: Normal Mood - Skin Skin Exam: Dry, Warm Results - Vital Signs Recent Vital Signs: Last Vital Signs Temp 98.8 F 11/11/18 06:00 Pulse 74 11/11/18 12:57 Resp 18 11/11/18 06:00 BP 220/110 H 11/11/18 12:57 Pulse Ox 99 11/11/18 06:00 - Labs Result Diagrams: 11/11/18 08:40 11/11/18 08:40 Labs: Laboratory Results - last 24 hr 11/10/18 11/10/18 11/11/18 04:39 13:20 08:40 WBC 7.7 RBC 4.21 Hgb 12.5 Hct 39.0 MCV 92.6 MCH 29.7 MCHC 32.1 RDW 14.6 H Plt Count 153 MPV 10.5 pO2 81 H VBG pH 7.30 L VBG pCO2 46.0 VBG HCO3 22.6 VBG Total CO2 24.0 VBG O2 Sat (Calc) 96.5 H VBG Base Excess -4.0 L VBG Potassium 4.1 Sodium 131.0 L Chloride 98.0 Glucose 155 H Lactate 1.3 FiO2 50.0 Potassium Carbon Dioxide Anion Gap BUN Creatinine Est GFR ( Amer) Est GFR (Non-Af Amer) Random Glucose Calcium Total Bilirubin AST ALT Alkaline Phosphatase Troponin I 0.20 H* D NT-Pro-B Natriuret Pep [id number] H Total Protein Albumin Globulin Albumin/Globulin Ratio Venous Blood Potassium 4.1 11/11/18 08:40 WBC RBC Hgb Hct MCV MCH MCHC RDW Plt Count MPV pO2 VBG pH VBG pCO2 VBG HCO3 VBG Total CO2 VBG O2 Sat (Calc) VBG Base Excess VBG Potassium Sodium 137 Chloride 94 L Glucose Lactate FiO2 Potassium 4.1 Carbon Dioxide 29 Anion Gap 19 BUN 50 H Creatinine 5.3 H Est GFR ( Amer) 10 Est GFR (Non-Af Amer) 8 Random Glucose 111 H Calcium 8.3 L Total Bilirubin 0.7 AST 54 H D ALT 20 Alkaline Phosphatase 62 Troponin I NT-Pro-B Natriuret Pep Total Protein 7.5 Albumin 4.2 Globulin 3.3 Albumin/Globulin Ratio 1.3 Venous Blood Potassium Assessment & Plan - Assessment and Plan (Free Text) Assessment: 58 F with PMHx of COPD, hypertension, CAD ,CHF, CVA, brain aneurysm with surgery, ESRD on hemodialysis 3x a week (MWF), right arm AV shunt , anemia, GERD, and anxiety presents with sob and cough. CXR shows R basilar infiltrate. - Cont abd with Aztreonam and Doxy - F/u nephro recs - F/u septic work up - Cont to monitor Case and plan was reviewed and discussed with Dr Win. <Bon Win - Last Filed: 11/11/18 15:48> Meds - Medications Medications: Current Medications Acetylcysteine (Acetylcysteine 20%) 4 ml IH BIDRESP [facility] Alprazolam (Xanax) 1 mg PO QID PRN; Protocol PRN Reason: Anxiety Last Admin: 11/11/18 15:36 Dose: 1 mg Aspirin (Ecotrin) 81 mg PO DAILY [facility] Last Admin: 11/11/18 14:37 Dose: 81 mg Budesonide (Pulmicort Respules) 0.5 mg IH [id number] [facility] Calcium Acetate (Phoslo) 667 mg PO WM [facility] Last Admin: 11/11/18 14:33 Dose: Not Given Clonidine HCl (Catapres) 0.1 mg PO Q6H PRN PRN Reason: Systolic Blood Pressure Clonidine HCl (Catapres) 0.2 mg PO TID [facility] Last Admin: 11/11/18 14:33 Dose: Not Given Docusate Sodium (Colace) 100 mg PO DAILY PRN PRN Reason: Constipation Fluticasone Propionate (Flonase) 1 actuation NS HS [facility] Heparin Sodium (Porcine) (Heparin) 5,000 units SC Q12 [facility]; Protocol Hydralazine HCl (Apresoline) 100 mg PO TID [facility] Last Admin: 11/11/18 14:34 Dose: Not Given Doxycycline Hyclate 100 mg/ (Sodium Chloride) 100 mls @ 100 mls/hr IVPB Q12 [facility]; Protocol Last Admin: 11/11/18 14:33 Dose: Not Given Aztreonam 250 mg/ Sodium (Chloride) 100 mls @ 100 mls/hr IVPB Q12 [facility] Stop: 11/17/18 22:01 Last Admin: 11/11/18 14:29 Dose: Not Given Labetalol HCl (Trandate) 200 mg PO Q8H [facility] Last Admin: 11/11/18 11:30 Dose: Not Given Levalbuterol HCl (Xopenex) 1.25 mg IH TIDRESP [facility] Last Admin: 11/11/18 14:03 Dose: 1.25 mg Methylprednisolone (Solu-Medrol) 20 mg IVP Q12 [facility] Oxycodone HCl (Oxycodone Immediate Release Tab) 30 mg PO Q6H PRN PRN Reason: Pain, severe (8-10) Sodium Chloride ([place] Nasal [place]) 0 ml NS Q4H PRN PRN Reason: Nasal congestion Zolpidem Tartrate (Ambien) 5 mg PO HS [facility]; Protocol Results - Vital Signs Recent Vital Signs: Last Vital Signs Temp 98.8 F 11/11/18 06:00 Pulse 79 11/11/18 14:00 Resp 18 11/11/18 06:00 BP 220/110 H 11/11/18 12:57 Pulse Ox 99 11/11/18 06:00 - Labs Result Diagrams: 11/11/18 08:40 11/11/18 08:40 Labs: Laboratory Results - last 24 hr 11/10/18 11/11/18 11/11/18 04:39 08:40 08:40 WBC 7.7 RBC 4.21 Hgb 12.5 Hct 39.0 MCV 92.6 MCH 29.7 MCHC 32.1 RDW 14.6 H Plt Count 153 MPV 10.5 pO2 81 H VBG pH 7.30 L VBG pCO2 46.0 VBG HCO3 22.6 VBG Total CO2 24.0 VBG O2 Sat (Calc) 96.5 H VBG Base Excess -4.0 L VBG Potassium 4.1 Sodium 131.0 L 137 Chloride 98.0 94 L Glucose 155 H Lactate 1.3 FiO2 50.0 Potassium 4.1 Carbon Dioxide 29 Anion Gap 19 BUN 50 H Creatinine 5.3 H Est GFR ( Amer) 10 Est GFR (Non-Af Amer) 8 Random Glucose 111 H Calcium 8.3 L Total Bilirubin 0.7 AST 54 H D ALT 20 Alkaline Phosphatase 62 Total Protein 7.5 Albumin 4.2 Globulin 3.3 Albumin/Globulin Ratio 1.3 Venous Blood Potassium 4.1 Assessment & Plan - Assessment and Plan (Free Text) Assessment: Infectious diseases Attending Physician Attestation Patient seen and examined, discussed with director medical writing. I have reviewed the patient's history of present illness, past medical, social, personal and family histories, pertinent physical exam findings, course so far in this hospital admission, pertinent laboratory and imaging results. I agree with the above fin dings, assessment and plan. In addition, started intermittent Vancomycin IV, Aztreonam and Doxycycline for patient with probable right sided HCAP. Follow up cultures, urine Legionella Ag, PCT and will monitor clinically.
--- NOTE | 2018-11-11 16:21 | CON ---
DATE: 11/11/2018 REFERRING PHYSICIAN: Carlos Eduardo Resendiz MD. REASON FOR CONSULTATION: COPD, cough, shortness of breath. HISTORY OF PRESENT ILLNESS: This is a 58-year-old female with past medical history significant for COPD, hypertension, coronary artery disease, congestive heart failure, CVA, brain aneurysm with surgery, end-stage renal disease on hemodialysis three times a week Friday, Friday and Friday, right arm AV shunt, GERD, anemia, anxiety. The patient reports that she has not been feeling well for about four days or so. She was placed on antibiotics by her self propelled mining machine operator due to infection near the right arm fistula. She has continued shortness of breath and cough associated with generalized weakness, saw her primary care physician and was given another antibiotic, which the patient reports did not help. The patient presented to the emergency room complaining of shortness of breath, states that she had a fever at one point over the four days, which she measured at 102. Today, the patient reports that she does have cough productive, shortness of breath, runny nose. PAST MEDICAL HISTORY: As per history of present illness. ALLERGIES: PENICILLIN. SOCIAL HISTORY: Reports that she quit smoking about a month ago, smoked for 15 years about one pack per day. No ETOH abuse. No illicit drug use. FAMILY HISTORY: No cardiopulmonary disease reported. MEDICATIONS: Aspirin 81 mg daily, aztreonam 250 mg every 12 hours, calcium acetate 667 mg Mondays and Friday, clonidine 0.1 mg every 6 hours p.r.n., clonidine 0.2 mg three times a day, Colace 100 mg p.o. daily p.r.n. and doxycycline 100 mg every 12 hours, hydralazine 100 mg three times a day, labetalol 200 mg every 8 hours, Xopenex 1.25 mg inhalation three times a day, oxycodone immediate release 30 mg every 6 hours p.r.n., and Ambien 5 mg at bedtime. REVIEW OF SYSTEMS: No headache, chest pain, abdominal pain, nausea, vomiting, diarrhea, leg pain, leg swelling reported. The patient does report shortness of breath, reports productive cough, reports having a runny nose, reports sinus pain. PHYSICAL EXAMINATION: VITAL SIGNS: Blood pressure 176/96, pulse 76, temperature 98.8, oxygen saturation 99% on room air. GENERAL: No acute distress. HEENT: Moist mucous membranes. Mallampati score 4. Crowded airway. Tender left side maxillary sinuses with slight erythema present. NECK: Supple. No JVD. LUNGS: Decreased breath sounds bilaterally. Crackles at the bases. CARDIOVASCULAR: S1 and S2. ABDOMEN: Soft and nontender. No distention. No organomegaly. EXTREMITIES: No bilateral lower extremity edema. NEUROLOGIC: Awake and alert, verbal, follows commands. LABORATORY DATA: Reviewed. WBC 7.7, RBC 4.21, hemoglobin 12.5, hematocrit 39, platelets 153. Sodium 137, potassium 4.1, chloride 94, carbon dioxide 29, anion gap 19, BUN 50, creatinine 5.3, GFR 8. Random glucose 111, calcium 8.3, total bilirubin 0.5, AST 54, ALT 20, alkaline phosphatase 62, pro-BNP 164,000, troponin 0.20, total creatinine kinase 124, lactate dehydrogenase 716, total protein 7.5, albumin 4.25, globulin 3.3, albumin and globulin ratio 1.3. Blood cultures preliminary no growth after 24 hours. Chest x-ray shows suspected right basilar infiltrate. EKG shows sinus tachycardia. IMPRESSION AND PLAN: Sinusitis, possible sepsis, end-stage renal disease, chronic obstructive pulmonary disease, hypertension. Continue inhaled bronchodilators. We will add Solu-Medrol 20 mg every 12 hours to help with inflammation with sinusitis. We will add Flonase nasal saline spray. We will place the patient on heparin for DVT prophylaxis. Procalcitonin pending, we will follow up when available. Continue antibiotic therapy per Infectious Disease. This patient seen and examined with Dr. Moran. Discussed assessment and plan as described above. The patient was seen and examined by Cyrus Canas APN. nurse practitioner. Discussed assessment and plan as described above. Thank you for the consult. We will follow with you. Cyrus Canas APN Chloe Moran MD [facility] # [id number] MTDD
--- NOTE | 2018-11-11 18:22 | CARD ---
APPROVED REPORT Date of service: 11/11/2018 EXAM: Two-dimensional and M-mode echocardiogram with Doppler and color Doppler. INDICATION Dyspnea Chest Pain 2D DIMENSIONS Left Atrium (2D)4.0 (1.6-4.0cm)IVSd1.9 (0.7-1.1cm) LVDd4.9 (3.9-5.9cm)PWd1.7 (0.7-1.1cm) LVDs3.7 (2.5-4.0cm)FS (%) 24.3 % LVEF (%)48.3 (>50%) M-Mode DIMENSIONS Aortic Root3.20 (2.2-3.7cm)Aortic Cusp Exc.1.80 (1.5-2.0cm) Aortic Valve AoV Peak Wyadzhde077.0cm/Andrea Peak GR.21mmHgLVOT Peak Zmwxniko109.0cm/s LVOT VTI21.10cm Mitral Valve MV E Obigsqav10.8cm/sMV A Nkikfjkc74.8cm/sE/A ratio1.0 TDI Lateral E' Peak V4.68cm/sMedial E' Peak V4.48cm/sE/Lateral E'19.0 E/Medial E'19.8 Pulmonary Valve PV Peak Ojmaidhw818.0cm/sPV Peak Grad.6mmHg Tricuspid Valve TR Peak Ocskgvyt461vf/sRAP HCIBNIQK80wgZkMS Peak Gr.15mmHg [id number] LEFT VENTRICLE The left ventricle is normal size. There is moderate concentric left ventricular hypertrophy. Low normal EF-50% There is normal LV segmental wall motion. Transmitral Doppler flow pattern is Grade III-reversible restrictive diastolic dysfunction. No left ventricle thrombus noted on this study. There is no ventricular septal defect visualized. There is no left ventricular aneurysm. There is no mass noted in the left ventricle. RIGHT VENTRICLE The right ventricle is normal size. There is normal right ventricular wall thickness. The right ventricular systolic function is normal. ATRIA The left atrium is borderline dilated. The right atrium size is normal. The interatrial septum is intact with no evidence for an atrial septal defect. AORTIC VALVE The aortic valve is thickened but opens well. There is trace aortic regurgitation. There is no aortic valvular stenosis. There is no aortic valvular vegetation. MITRAL VALVE The mitral valve is thickened but opens well. Mitral regurgitation is trace. There is no mitral valve stenosis. There is no evidence of mitral valve prolapse. TRICUSPID VALVE The tricuspid valve leaflets are thickened , but open well. There is trace tricuspid regurgitation.RVSP-25 mmof hg., There is no tricuspid valve stenosis. There is no tricuspid valve prolapse or vegetation. PULMONIC VALVE The pulmonary valve is normal in structure. There is trace pulmonic valvular regurgitation. There is no pulmonic valvular stenosis. GREAT VESSELS The aortic root is normal in size. The ascending aorta is normal in size. The pulmonary artery is normal. The IVC is normal in size and collapses >50% with inspiration. PERICARDIAL EFFUSION There is no pleural effusion. TYrivial PE. <Conclusion> Normal chamber size. LVH. EF-50% Trace MR/TR/PI/AR RVSP-25 mmof Hg.
[2018-11-11] MEDS: Acetylcysteine 20% Inhal Soln (4ml) IH SCH (19:27)
[2018-11-11] MEDS: Budesonide 0.5 mg/2 ml Inhal Susp UD IH SCH (19:27)
[2018-11-11] MEDS: MethylPREDNISolone 40 mg Vial IVP SCH (21:36)
[2018-11-11] MEDS: Fluticasone Nasal 50 mcg/Spray NS SCH (22:07)
--- NOTE | 2018-11-12 02:37 | HP ---
DATE OF EXAM: 11/11/2018 MAIN COMPLAINT: Coughing, short of breath and the patient missed her dialysis for 2 days and feeling weak. HISTORY OF PRESENT ILLNESS: The patient has been feeling sick for the last few days. She feels so sick, she could not go for dialysis. Today, she came in because she felt short of breath, keeps coughing, not feeling well, and came for evaluation. She did have some fever. No chills. No nausea. No vomiting. No other complaints. The patient does have a history of renal hemodialysis and she has a right forearm access that was infected few days ago and I am giving doxycycline for one week, questionable infection. PAST MEDICAL HISTORY: Chronic renal failure, hypertension poorly controlled, history of cerebral bleed, chronic back pain, chronic anxiety, and COPD. ALLERGIES: PENICILLIN. SOCIAL HISTORY: She quit smoking many years ago, no other problems. She does not drink. She lives with her boyfriend and she has one child. She has the mother at home taking care of her. REVIEW OF SYSTEMS: She always has general weakness, back pain, anxiety, chronic cough, otherwise negative. PHYSICAL EXAMINATION: VITAL SIGNS: Temperature is 97, heart rate 93, blood pressure 215/108, and respirations 20. HEAD AND NECK: Normal. No JVD. No thyromegaly. CHEST: Bilateral rhonchi on the bases. CARDIAC: First sound and second sound normal. ABDOMEN: Soft and nontender. EXTREMITIES: No edema. NEUROLOGIC: Normal. Right forearm is better. LABORATORY DATA: White count 9.2, hemoglobin 12.3, hematocrit 38.3, and platelets 169. Chemistry; sodium 135, potassium 4.3, chloride 97, bicarb 20, BUN 67, and creatinine 8.5. Troponin and BNP is 164,000. The patient has procalcitonin 1.82. ABG shows pO2 of 81, pH of 7.30, pCO2 of 46, and bicarb 22. The patient also had lactate level 1.3. The patient also has a chest x-ray of lungs show opacity in the right lung base or possible pneumonia. The patient also had electrocardiogram, which shows sinus tachycardia, LVH, and nonspecific ST-T wave changes. IMPRESSION: 1. The patient is a 58-year-old female with history of chronic renal failure, poorly controlled blood pressure, history of chronic obstructive pulmonary disease, came in with cough, and found to have pneumonia consistent with her symptoms. We will admit the patient for community-acquired pneumonia, the patient got doxycycline, Azactam, and vancomycin IV. We will continue to monitor the patient, blood cultures drawn, and we will follow up clinically. Infections Disease consultation, Dr. Win and Pulmonary consult, Dr. Moran. Also Dr. Smallwood, Cardiology consultation. 2. Hypertension, poorly controlled and we will resume her medications. We will monitor the blood pressure after dialysis. 3. Chronic back pain. 4. Chronic osteoarthritis. 5. Chronic anxiety. PLAN: Continue Xanax, oxycodone, and followup clinically. Carlos Eduardo Resendiz MD
--- NOTE | 2018-11-12 05:37 | CP.PCM.PN ---
Subjective - Date & Time of Evaluation Date of Evaluation: 11/12/18 Time of Evaluation: 05:31 - Subjective Subjective: PGY-3 for House Doc, Dr Staples CC: SVT Ms Ledesma, 58F, c/o Generalized weakness. She was found to have probable R HC, started intermittent Vancomycin IV, Aztreonam and Doxycycline. Pt felt a slight palpitation but no dizziness PMH: COPD, hypertension,myocardial infarction, CHF, CVA, brain aneurysm with surgery, ESRD on hemodialysis 3x a week (MWF), right arm AV shunt , anemia, GERD, anxiety, former smoker. O: T 100.8 rectal. BP, RR, POx on NC wnl HEENT Regular s1 s2 CTA b/l. decrease bs RLL soft ntnd Echo: Normal EF. A: SVT, 11 beats, non-sustained. Questionable delta waves. Likely triggered by fever Prolonged QTc at 580 P: - EKG and meds reviewed. caution about antibiotics or meds that can prolong QT - check labs to correct any potential electrolyte abnormality - tylenol PRN for fever control - Cardiology on board. Objective - Vital Signs/Intake and Output Vital Signs (last 24 hours): Temp Pulse Resp BP Pulse Ox 98.6 F 73 20 133/75 98 11/12/18 00:01 11/12/18 03:53 11/12/18 00:01 11/12/18 03:53 11/12/18 00:01 Intake and Output: 11/11/18 11/12/18 18:59 06:59 Intake Total 718 Balance 718 - Medications Medications: Current Medications Acetylcysteine (Acetylcysteine 20%) 4 ml IH BIDRESP [facility] Last Admin: 11/11/18 19:27 Dose: 4 ml Alprazolam (Xanax) 1 mg PO QID PRN; Protocol PRN Reason: Anxiety Last Admin: 11/11/18 21:35 Dose: 1 mg Aspirin (Ecotrin) 81 mg PO DAILY [facility] Last Admin: 11/11/18 14:37 Dose: 81 mg Budesonide (Pulmicort Respules) 0.5 mg IH [id number] [facility] Last Admin: 11/11/18 19:27 Dose: 0.5 mg Calcium Acetate (Phoslo) 667 mg PO WM [facility] Last Admin: 11/11/18 18:18 Dose: Not Given Clonidine HCl (Catapres) 0.1 mg PO Q6H PRN PRN Reason: Systolic Blood Pressure Clonidine HCl (Catapres) 0.2 mg PO TID [facility] Last Admin: 11/11/18 18:18 Dose: 0.2 mg Docusate Sodium (Colace) 100 mg PO DAILY PRN PRN Reason: Constipation Fluticasone Propionate (Flonase) 1 actuation NS HS [facility] Last Admin: 11/11/18 22:07 Dose: Not Given Heparin Sodium (Porcine) (Heparin) 5,000 units SC Q12 [facility]; Protocol Last Admin: 11/11/18 21:35 Dose: Not Given Hydralazine HCl (Apresoline) 100 mg PO TID [facility] Last Admin: 11/11/18 18:18 Dose: 100 mg Doxycycline Hyclate 100 mg/ (Sodium Chloride) 100 mls @ 100 mls/hr IVPB Q12 [facility]; Protocol Last Admin: 11/11/18 21:34 Dose: 100 mls/hr Aztreonam 250 mg/ Sodium (Chloride) 100 mls @ 100 mls/hr IVPB Q12 [facility] Stop: 11/17/18 22:01 Last Admin: 11/11/18 22:11 Dose: 100 mls/hr Labetalol HCl (Trandate) 200 mg PO Q8H [facility] Last Admin: 11/12/18 03:53 Dose: 200 mg Levalbuterol HCl (Xopenex) 1.25 mg IH TIDRESP [facility] Last Admin: 11/11/18 19:27 Dose: 1.25 mg Methylprednisolone (Solu-Medrol) 20 mg IVP Q12 [facility] Last Admin: 11/11/18 21:36 Dose: 20 mg Oxycodone HCl (Oxycodone Immediate Release Tab) 30 mg PO Q6H PRN PRN Reason: Pain, severe (8-10) Sodium Chloride ([place] Nasal [place]) 0 ml NS Q4H PRN PRN Reason: Nasal congestion Zolpidem Tartrate (Ambien) [address] [facility]; Protocol Last Admin: 11/11/18 21:35 Dose: 5 mg - Labs Labs: 11/11/18 08:40 11/11/18 08:40
[2018-11-12 06:43] LABS: HDL CHOLESTEROL 29 mg/dL (29-60)
[2018-11-12 06:53] LABS: LDL CHOLESTEROL 40 mg/dL (0-129)
--- NOTE | 2018-11-12 06:58 | CP.PCM.PN ---
Subjective - Date & Time of Evaluation Date of Evaluation: 11/12/18 Time of Evaluation: 06:10 - Subjective Subjective: Sitting side of bed, awake, alert, feels better Reason for consultation and follow up: Cardiac evaluation of shortness of breath,history of COPD, hypertension,myocardial infarction, CHF, CVA, brain aneurysm with surgery, ESRD on hemodialysis Seen and examined by me and Dr. Smallwood Objective - Vital Signs/Intake and Output Vital Signs (last 24 hours): Temp Pulse Resp BP Pulse Ox 100.8 F H 73 20 138/83 99 11/12/18 06:29 11/12/18 06:00 11/12/18 06:00 11/12/18 06:00 11/12/18 06:00 Intake and Output: 11/11/18 11/12/18 18:59 06:59 Intake Total 918 Balance 918 - Medications Medications: Current Medications Acetaminophen (Tylenol 325mg Tab) 650 mg PO Q6H PRN PRN Reason: Fever >100.4 F Last Admin: 11/12/18 06:29 Dose: 650 mg Acetylcysteine (Acetylcysteine 20%) 4 ml IH BIDRESP [facility] Last Admin: 11/11/18 19:27 Dose: 4 ml Alprazolam (Xanax) 1 mg PO QID PRN; Protocol PRN Reason: Anxiety Last Admin: 11/11/18 21:35 Dose: 1 mg Aspirin (Ecotrin) 81 mg PO DAILY [facility] Last Admin: 11/11/18 14:37 Dose: 81 mg Budesonide (Pulmicort Respules) 0.5 mg IH [id number] [facility] Last Admin: 11/11/18 19:27 Dose: 0.5 mg Calcium Acetate (Phoslo) 667 mg PO WM [facility] Last Admin: 11/11/18 18:18 Dose: Not Given Clonidine HCl (Catapres) 0.1 mg PO Q6H PRN PRN Reason: Systolic Blood Pressure Clonidine HCl (Catapres) 0.2 mg PO TID [facility] Last Admin: 11/11/18 18:18 Dose: 0.2 mg Docusate Sodium (Colace) 100 mg PO DAILY PRN PRN Reason: Constipation Fluticasone Propionate (Flonase) 1 actuation NS HS [facility] Last Admin: 11/11/18 22:07 Dose: Not Given Heparin Sodium (Porcine) (Heparin) 5,000 units SC Q12 [facility]; Protocol Last Admin: 11/11/18 21:35 Dose: Not Given Hydralazine HCl (Apresoline) 100 mg PO TID [facility] Last Admin: 11/11/18 18:18 Dose: 100 mg Doxycycline Hyclate 100 mg/ (Sodium Chloride) 100 mls @ 100 mls/hr IVPB Q12 [facility]; Protocol Last Admin: 11/11/18 21:34 Dose: 100 mls/hr Aztreonam 250 mg/ Sodium (Chloride) 100 mls @ 100 mls/hr IVPB Q12 [facility] Stop: 11/17/18 22:01 Last Admin: 11/11/18 22:11 Dose: 100 mls/hr Labetalol HCl (Trandate) 200 mg PO Q8H [facility] Last Admin: 11/12/18 03:53 Dose: 200 mg Levalbuterol HCl (Xopenex) 1.25 mg IH TIDRESP [facility] Last Admin: 11/11/18 19:27 Dose: 1.25 mg Methylprednisolone (Solu-Medrol) 20 mg IVP Q12 [facility] Last Admin: 11/11/18 21:36 Dose: 20 mg Oxycodone HCl (Oxycodone Immediate Release Tab) 30 mg PO Q6H PRN PRN Reason: Pain, severe (8-10) Sodium Chloride ([place] Nasal [place]) 0 ml NS Q4H PRN PRN Reason: Nasal congestion Zolpidem Tartrate (Ambien) 5 mg PO HS [facility]; Protocol Last Admin: 11/11/18 21:35 Dose: 5 mg - Labs Labs: 11/11/18 08:40 11/11/18 08:40 - Constitutional Appears: Non-toxic, No Acute Distress - Head Exam Head Exam: NORMAL INSPECTION, NORMOCEPHALIC - Eye Exam Eye Exam: Normal appearance Pupil Exam: NORMAL ACCOMODATION - ENT Exam ENT Exam: Mucous Membranes Moist, Normal Exam - Respiratory Exam Respiratory Exam: Decreased Breath Sounds, NORMAL BREATHING PATTERN - Cardiovascular Exam Cardiovascular Exam: REGULAR RHYTHM, +S1, +S2 Additional comments: Telemetry NSR 70's - GI/Abdominal Exam GI & Abdominal Exam: Soft, Normal Bowel Sounds - Extremities Exam Extremities Exam: Full ROM, Normal Capillary Refill Additional comments: right AV shunt positive bruit - Neurological Exam Neurological Exam: Alert, Awake, Oriented x3 - Psychiatric Exam Psychiatric exam: Normal Affect, Normal Mood - Skin Skin Exam: Dry, Normal Color, Warm Assessment and Plan - Assessment and Plan (Free Text) Assessment: A 58 year old female who came in to the ER due to generalized weakness. She claimed to have seen PMD last week for arm infection and was put on antibiotics. However felt so weak and complaining of shortness of breath. History of COPD, hypertension,myocardial infarction, CHF, CVA, brain aneurysm with surgery, ESRD on hemodialysis 3x a week (MWF), right arm AV shunt , anemia, GERD, anxiety, former smoker. Chest x ray showed suspected right basilar infiltrate. On IV antibiotics. Denies chest pain, troponin elevated secondary to chronic renal insufficiency. Will treat medically. Will start aspirin daily. On BIPAP for shortness of breath. EKG showed ST, non specific ST abnormality. Pneumonia. Had hemodialysis and pulled 1.5 liters of fluid. Echo done yesterday. Review of previous cardiac work up: 11/23/17 Echo done- LVEF 50-55%, Trace to mild AR,mild to moderate MR Mild TR RVSP 26 mmHg, small pleural effusion 12/08/17 Cath done- Non-obstructive CAD limited to D1 ostial 60% stenosis, small caliber, LVEF 65%, unchanged from previous cath on 05/20/16 Plan: Echo done-normal chambers, LVEF 50% Trace MR/TR/PI/AR RVSP 25 mmHg Feels better, wanted to go home Denies shortness of breath Heart rate controlled Blood pressure controlled On ASA 81 mg daily, Hydralazine 100 mg TID, Catapres 0.2 mg TID Labetolol 200mg every 8 hours,Heparin 5000 units every 12 hours Solumedrol 20 mg BID Continue current treatment Continue current medications Had hemodialysis yesterday, pulled 2.5 liters of fluid Pulmonary on consult Continue IV antibiotics as ordered by ID Will follow up Plan and treatment discussed with Dr. Smallwood
[2018-11-12] MEDS: Acetylcysteine 20% Inhal Soln (4ml) IH SCH ×2 (07:21→20:26)
[2018-11-12] MEDS: Budesonide 0.5 mg/2 ml Inhal Susp UD IH SCH ×2 (07:21→20:26)
[2018-11-12] MEDS: Levalbuterol 1.25 MG/3 ML Inhal Soln UD IH SCH ×3 (07:21→20:26)
[2018-11-12 08:43] LABS: HEMOGLOBIN 11.8 g/dL (12.0-16.0); LYMPH # 0.4 (1.2-3.4); LYMPH % 5.9 % (22.0-35.0); MEAN CELL VOLUME 92.7 fl (80.0-105.0); MEAN CORPUSCULAR HEMOGLOBIN 29.9 pg (25.0-35.0); MEAN CORPUSCULAR HGB CONC 32.2 g/dl (31.0-37.0); MEAN PLATELET VOLUME 10.9 fl (7.0-11.0); MONO # 0.4 (0.1-0.6); MONO % 6.1 % (1.0-6.0); RBC 3.95 10^6/uL (3.5-6.1); RED CELL DISTRIBUTION WIDTH 14.7 % (11.5-14.5); WHITE BLOOD COUNT 7.2 10^3/uL (4.5-11.0)
[2018-11-12 08:53] LABS: ALB/GLOB RATIO 1.2 (1.1-1.8); ALBUMIN 4.1 g/dL (3.0-4.8); CALCIUM 8.2 mg/dL (8.4-10.5)
[2018-11-12] MEDS ORDERED: Vancomycin 1gm in NS 250ml 1 GM/250 ML BAG IVPB STA (09:26)
[2018-11-12] MEDS: MethylPREDNISolone 40 mg Vial IVP SCH (09:56)
--- NOTE | 2018-11-12 10:18 | CP.PCM.PN ---
<Martell Rosa - Last Filed: 11/12/18 12:32> Subjective - Date & Time of Evaluation Date of Evaluation: 11/12/18 Time of Evaluation: 07:00 - Subjective Subjective: Infectious disease progress note: Patient seen and examined at bedside. No acute events overnight. States that she is feeling much better, Still with mild cough. No fevers. 12 point ROS performed and negative other than stated above. Objective - Vital Signs/Intake and Output Vital Signs (last 24 hours): Temp Pulse Resp BP Pulse Ox 100.8 F H 73 20 138/83 99 11/12/18 06:29 11/12/18 06:00 11/12/18 06:00 11/12/18 06:00 11/12/18 06:00 Intake and Output: 11/12/18 11/12/18 06:59 18:59 Intake Total 918 Balance 918 - Medications Medications: Current Medications Acetaminophen (Tylenol 325mg Tab) 650 mg PO Q6H PRN PRN Reason: Fever >100.4 F Last Admin: 11/12/18 06:29 Dose: 650 mg Acetylcysteine (Acetylcysteine 20%) 4 ml IH BIDRESP [facility] Last Admin: 11/12/18 07:21 Dose: Not Given Alprazolam (Xanax) 1 mg PO QID PRN; Protocol PRN Reason: Anxiety Last Admin: 11/11/18 21:35 Dose: 1 mg Aspirin (Ecotrin) 81 mg PO DAILY [facility] Last Admin: 11/11/18 14:37 Dose: 81 mg Budesonide (Pulmicort Respules) 0.5 mg IH [id number] [facility] Last Admin: 11/12/18 07:21 Dose: Not Given Calcium Acetate (Phoslo) 667 mg PO WM [facility] Last Admin: 11/11/18 18:18 Dose: Not Given Clonidine HCl (Catapres) 0.1 mg PO Q6H PRN PRN Reason: Systolic Blood Pressure Clonidine HCl (Catapres) 0.2 mg PO TID [facility] Last Admin: 11/11/18 18:18 Dose: 0.2 mg Docusate Sodium (Colace) 100 mg PO DAILY PRN PRN Reason: Constipation Fluticasone Propionate (Flonase) 1 actuation NS HS [facility] Last Admin: 11/11/18 22:07 Dose: Not Given Heparin Sodium (Porcine) (Heparin) 5,000 units SC Q12 [facility]; Protocol Last Admin: 11/11/18 21:35 Dose: Not Given Hydralazine HCl (Apresoline) 100 mg PO TID [facility] Last Admin: 11/11/18 18:18 Dose: 100 mg Doxycycline Hyclate 100 mg/ (Sodium Chloride) 100 mls @ 100 mls/hr IVPB Q12 [facility]; Protocol Last Admin: 11/11/18 21:34 Dose: 100 mls/hr Aztreonam 250 mg/ Sodium (Chloride) 100 mls @ 100 mls/hr IVPB Q12 [facility] Stop: 11/17/18 22:01 Last Admin: 11/11/18 22:11 Dose: 100 mls/hr Vancomycin HCl (Vancomycin 1gm) 1 gm in 250 mls @ 167 mls/hr IVPB STAT [facility]; Protocol Stop: 11/12/18 10:55 Labetalol HCl (Trandate) 200 mg PO Q8H [facility] Last Admin: 11/12/18 03:53 Dose: 200 mg Levalbuterol HCl (Xopenex) 1.25 mg IH TIDRESP [facility] Last Admin: 11/12/18 07:21 Dose: Not Given Methylprednisolone (Solu-Medrol) 20 mg IVP Q12 [facility] Last Admin: 11/11/18 21:36 Dose: 20 mg Oxycodone HCl (Oxycodone Immediate Release Tab) 30 mg PO Q6H PRN PRN Reason: Pain, severe (8-10) Sodium Chloride ([place] Nasal [place]) 0 ml NS Q4H PRN PRN Reason: Nasal congestion Zolpidem Tartrate (Ambien) 5 mg PO HS [facility]; Protocol Last Admin: 11/11/18 21:35 Dose: 5 mg - Labs Labs: 11/12/18 08:00 11/12/18 08:00 - Constitutional Appears: No Acute Distress - Head Exam Head Exam: ATRAUMATIC, NORMOCEPHALIC - Eye Exam Eye Exam: EOMI - ENT Exam ENT Exam: Mucous Membranes Moist - Respiratory Exam Respiratory Exam: Clear to Ausculation Bilateral. absent: Rhonchi, Wheezes - Cardiovascular Exam Cardiovascular Exam: RRR, +S1, +S2 - GI/Abdominal Exam GI & Abdominal Exam: Soft. absent: Tenderness - Extremities Exam Extremities Exam: absent: Calf Tenderness, Pedal Edema - Neurological Exam Neurological Exam: Alert, Awake, Oriented x3 - Psychiatric Exam Psychiatric exam: Normal Mood - Skin Skin Exam: Dry, Warm Assessment and Plan - Assessment and Plan (Free Text) Assessment: 58 F with PMHx of COPD, hypertension, CAD ,CHF, CVA, brain aneurysm with surgery, ESRD on hemodialysis 3x a week (MWF), right arm AV shunt , anemia, GERD, and anxiety presents with sob and cough. CXR shows R basilar infiltrate. - Cont abd with Vanc, Aztreonam and Doxy - procal elevated 1.8 - Influenza neg - F/u septic work up - Legionella Ag - Cont to monitor Case and plan was reviewed and discussed with Dr Win. <Bon Win - Last Filed: 11/12/18 17:54> Objective - Vital Signs/Intake and Output Vital Signs (last 24 hours): Temp Pulse Resp BP Pulse Ox 98 F 61 18 137/75 99 11/12/18 12:00 11/12/18 17:20 11/12/18 12:00 11/12/18 17:20 11/12/18 06:00 Intake and Output: 11/12/18 11/12/18 06:59 18:59 Intake Total 918 Balance 918 - Medications Medications: Current Medications Acetaminophen (Tylenol 325mg Tab) 650 mg PO Q6H PRN PRN Reason: Fever >100.4 F Last Admin: 11/12/18 06:29 Dose: 650 mg Acetylcysteine (Acetylcysteine 20%) 4 ml IH BIDRESP [facility] Last Admin: 11/12/18 07:21 Dose: Not Given Alprazolam (Xanax) 1 mg PO QID PRN; Protocol PRN Reason: Anxiety Last Admin: 11/12/18 17:22 Dose: 1 mg Aspirin (Ecotrin) 81 mg PO DAILY [facility] Last Admin: 11/12/18 09:57 Dose: 81 mg Budesonide (Pulmicort Respules) 0.5 mg IH [id number] [facility] Last Admin: 11/12/18 07:21 Dose: Not Given Calcium Acetate (Phoslo) 667 mg PO WM [facility] Last Admin: 11/12/18 17:20 Dose: 667 mg Clonidine HCl (Catapres) 0.1 mg PO Q6H PRN PRN Reason: Systolic Blood Pressure Clonidine HCl (Catapres) 0.2 mg PO TID [facility] Last Admin: 11/12/18 17:20 Dose: 0.2 mg Docusate Sodium (Colace) 100 mg PO DAILY PRN PRN Reason: Constipation Fluticasone Propionate (Flonase) 1 actuation NS HS [facility] Last Admin: 11/11/18 22:07 Dose: Not Given Heparin Sodium (Porcine) (Heparin) 5,000 units SC Q12 [facility]; Protocol Last Admin: 11/12/18 10:01 Dose: Not Given Hydralazine HCl (Apresoline) 100 mg PO TID [facility] Last Admin: 11/12/18 17:19 Dose: 100 mg Doxycycline Hyclate 100 mg/ (Sodium Chloride) 100 mls @ 100 mls/hr IVPB Q12 [facility]; Protocol Last Admin: 11/12/18 10:03 Dose: 100 mls/hr Aztreonam 250 mg/ Sodium (Chloride) 100 mls @ 100 mls/hr IVPB Q12 [facility] Stop: 11/17/18 22:01 Last Admin: 11/12/18 11:44 Dose: 100 mls/hr Labetalol HCl (Trandate) 200 mg PO Q8H [facility] Last Admin: 11/12/18 13:57 Dose: Not Given Levalbuterol HCl (Xopenex) 1.25 mg IH TIDRESP [facility] Last Admin: 11/12/18 13:20 Dose: Not Given Oxycodone HCl (Oxycodone Immediate Release Tab) 30 mg PO Q6H PRN PRN Reason: Pain, severe (8-10) Prednisone (Prednisone Tab) 10 mg PO DAILY [facility] Sodium Chloride ([place] Nasal [place]) 0 ml NS Q4H PRN PRN Reason: Nasal congestion Zolpidem Tartrate (Ambien) 5 mg PO HS [facility]; Protocol Last Admin: 11/11/18 21:35 Dose: 5 mg - Labs Labs: 11/12/18 08:00 11/12/18 08:00 Assessment and Plan - Assessment and Plan (Free Text) Assessment: Infectious diseases Attending Physician Attestation Patient seen and examined, discussed with medical assistant prn. I have reviewed the patient's history of present illness, past medical, social, personal and family histories, pertinent physical exam findings, course so far in this hospital admission, pertinent laboratory and imaging results. I agree with the above findings, assessment and plan. In addition, continue intermittent Vancomycin, Azactam and Doxycycline for right sided HCAP. Follow up final culture results and trend fever curve.
--- NOTE | 2018-11-12 12:54 | PN ---
DATE: 11/12/2018 REFERRING PHYSICIAN: Carlos Eduardo Resendiz MD SUBJECTIVE: The patient is sitting up in bed, head of bed elevated, reports feeling much better today. States coughing and shortness of breath have improved since coming to the hospital. No headache, rhinitis, chest pain, abdominal pain, nausea, vomiting, diarrhea, leg pain or leg swelling reported. OBJECTIVE: VITAL SIGNS: Blood pressure 133/91, pulse 67, temperature 100.8, oxygen saturation 99% on nasal cannula. GENERAL: No acute distress. HEENT: Moist mucous membranes. Crowded airway, Mallampati score 4. NECK: Supple. No JVD. LUNGS: Few crackles at the bases. CARDIOVASCULAR: S1, S2. ABDOMEN: Soft. Nontender. No distention. No organomegaly. EXTREMITIES: No bilateral lower extremity edema. NEUROLOGIC: Awake, alert, verbal. Follows commands. MEDICATIONS: Reviewed. Tylenol 650 every 6 hours p.r.n. fever greater than 100.4, Mucomyst 4 mL inhalation twice a day, Xanax 1 mg 4 times a day p.r.n., aspirin 81 mg daily, aztreonam 250 mg every 12 hours, Pulmicort 0.5 mg every 12 hours, calcium acetate 667 mg Mondays and Wednesdays, clonidine 0.1 mg every 6 hours p.r.n., clonidine 0.2 mg 3 times a day, Colace 100 mg daily p.r.n., doxycycline 100 mg every 12 hours, Flonase nasal spray at bedtime, heparin 5000 units subcutaneously every 12 hours, hydralazine 100 mg 3 times a day,labetalol 200 mg every 8 hours, Xopenex 1.25 mg inhalation 3 times a day, Solu-Medrol 20 mg every 12 hours, oxycodone 30 mg every 6 hours p.r.n., [place] nasal spray p.r.n., vancomycin 1 g stat dose, Ambien 5 mg at bedtime. LABORATORY DATA: Reviewed. WBC 7.2, RBC 3.95, hemoglobin 11.8, hematocrit 36.3, platelets 154. Sodium 132, potassium 3.7, chloride 94, carbon dioxide 26, anion gap 16, BUN 39, creatinine 4.9, GFR 9, random glucose 117, calcium 8.2, phosphorus 4.2, magnesium 2.1, total bilirubin 0.6, AST 40, ALT 18, alkaline phosphatase 60, total protein 7.5, albumin 4.1, globulin 3.4, albumin-globulin ratio 1.2, triglycerides 150, cholesterol 111, LDL cholesterol 40, HDL cholesterol 29. TSH 0.22. Procalcitonin 1.82. Influenza type A and B negative. Blood cultures preliminary, no growth after 24 hours. Echocardiogram shows normal chamber size, LVH, ejection fraction 50%, trace MR/TR/PI/AR. RVSP is 25. Electrocardiogram report pending. IMPRESSION AND PLAN: Sinusitis, community-acquired pneumonia, end-stage renal disease on hemodialysis, chronic obstructive pulmonary disease, hypertension. Continue inhaled bronchodilators. We will discontinue Solu-Medrol and start the patient on prednisone 10 mg daily to be tapered off over the next 5 days. Continue nasal sprays, deep venous thrombosis prophylaxis, gastric prophylaxis. Continue antibiotic therapy per Infectious Disease. This patient seen and examined with Dr. Moran. Discussed assessment and plan as described above. This patient was seen and examined with Cyrus Canas, nurse practitioner. Discussed assessment and plan as described above. Thank you for this consult. We will follow with you. Cyrus Canas APN Chloe Moran MD THO
--- NOTE | 2018-11-12 18:57 | CARD ---
APPROVED REPORT Date of service: 11/12/2018 EKG Measurement Heart [id number] <Conclusion> Normal sinus rhythm Possible Left atrial enlargement T wave abnormality, consider anterolateral ischemia Prolonged QT Abnormal ECG
--- NOTE | 2018-11-12 19:16 | PN ---
DATE: 11/12/2018 SUBJECTIVE: The patient is seen sitting in bed. She is awake, she is alert, she is comfortable. She reports she is feeling better. She denies any chest pain. She denies any palpitations. PHYSICAL EXAMINATION: GENERAL: Middle-aged lady, sitting in bed. VITAL SIGNS: Blood pressure 128/80, heart rate 62, respiratory rate 18, temperature 98, T-max is 100.8. HEENT: Normocephalic, atraumatic, positive pallor. NECK: Supple, no JVD. LUNGS: Bilateral equal air entry, bilateral rhonchi, no rales. CARDIAC: S1, S2, regular rate and rhythm, no murmur, no rub. ABDOMEN: Obese, distended, soft, nontender, bowel sounds present. EXTREMITIES: No lower extremity edema. INTAKE AND OUTPUT: 918/not charted. LABORATORY DATA: WBC 7, hemoglobin 11.8, hematocrit 36.6, platelets 154. Sodium 132, potassium 3.7, chloride 94, CO2 26, BUN 39, creatinine 4.9, glucose 117, calcium 8.2, phosphorus 4.2 magnesium 2.1. TSH 0.22. Blood cultures negative. CURRENT MEDICATIONS: Ambien, Apresoline 100 t.i.d., aztreonam 250 every 12 hours, Catapres 0.2 t.i.d., Colace, doxycycline 100 every 12 hours, Ecotrin, Flonase, PhosLo, prednisone 10, Pulmicort, Trandate, Xanax, Xopenex. ASSESSMENT: 1. Decompensated congestive heart failure, volume overload, now resolved. 2. Chronic obstructive pulmonary disease exacerbation. 3. Endstage renal disease. 4. Severe uncontrolled hypertension. 5. Secondary hyperparathyroidism. PLAN: 1. Continue current antihypertensives, blood pressure seems to be better controlled with the clonidine 0.2 three times a day. 2. Dialysis tomorrow. 3. Continue empiric antibiotics. 4. Continue respiratory treatments. 5. Discharge planning. Kayleen Flores MD
--- NOTE | 2018-11-12 22:22 | CP.PCM.PN ---
Subjective - Date & Time of Evaluation Date of Evaluation: 11/12/18 Time of Evaluation: 22:21 - Subjective Subjective: Patient was seen because resident had asked me to co sign order for EKG. See resident's note. Objective - Vital Signs/Intake and Output Vital Signs (last 24 hours): Temp Pulse Resp BP Pulse Ox 97.4 F L 67 18 155/87 H 99 11/12/18 17:59 11/12/18 21:34 11/12/18 17:59 11/12/18 21:34 11/12/18 06:00 Intake and Output: 11/12/18 11/13/18 18:59 06:59 Intake Total 330 Output Total 0 Balance 330 - Medications Medications: Current Medications Acetaminophen (Tylenol 325mg Tab) 650 mg PO Q6H PRN PRN Reason: Fever >100.4 F Last Admin: 11/12/18 06:29 Dose: 650 mg Acetylcysteine (Acetylcysteine 20%) 4 ml IH BIDRESP [facility] Last Admin: 11/12/18 20:26 Dose: Not Given Alprazolam (Xanax) 1 mg PO QID PRN; Protocol PRN Reason: Anxiety Last Admin: 11/12/18 21:37 Dose: 1 mg Aspirin (Ecotrin) 81 mg PO DAILY [facility] Last Admin: 11/12/18 09:57 Dose: 81 mg Budesonide (Pulmicort Respules) 0.5 mg IH [id number] [facility] Last Admin: 11/12/18 20:26 Dose: 0.5 mg Calcium Acetate (Phoslo) 667 mg PO WM [facility] Last Admin: 11/12/18 17:20 Dose: 667 mg Clonidine HCl (Catapres) 0.1 mg PO Q6H PRN PRN Reason: Systolic Blood Pressure Clonidine HCl (Catapres) 0.2 mg PO TID [facility] Last Admin: 11/12/18 17:20 Dose: 0.2 mg Docusate Sodium (Colace) 100 mg PO DAILY PRN PRN Reason: Constipation Fluticasone Propionate (Flonase) 1 actuation NS HS [facility] [place] Last Admin: 11/11/18 22:07 Dose: Not Given Heparin Sodium (Porcine) (Heparin) 5,000 units SC Q12 [facility]; Protocol Last Admin: 11/12/18 10:01 Dose: Not Given Hydralazine HCl (Apresoline) 100 mg PO TID [facility] Last Admin: 11/12/18 17:19 Dose: 100 mg Doxycycline Hyclate 100 mg/ (Sodium Chloride) 100 mls @ 100 mls/hr IVPB Q12 [facility]; Protocol Last Admin: 11/12/18 21:38 Dose: 100 mls/hr Aztreonam 250 mg/ Sodium (Chloride) 100 mls @ 100 mls/hr IVPB Q12 [facility] Stop: 11/17/18 22:01 Last Admin: 11/12/18 21:39 Dose: 100 mls/hr Labetalol HCl (Trandate) 200 mg PO Q8H [facility] Last Admin: 11/12/18 21:34 Dose: 200 mg Levalbuterol HCl (Xopenex) 1.25 mg IH TIDRESP [facility] Last Admin: 11/12/18 20:26 Dose: 1.25 mg Oxycodone HCl (Oxycodone Immediate Release Tab) 30 mg PO Q6H PRN PRN Reason: Pain, severe (8-10) Prednisone (Prednisone Tab) 10 mg PO DAILY [facility] Sodium Chloride ([place] Nasal [place]) 0 ml NS Q4H PRN PRN Reason: Nasal congestion Zolpidem Tartrate (Ambien) 5 mg PO HS [facility]; Protocol Last Admin: 11/12/18 21:37 Dose: 5 mg - Labs Labs: 11/12/18 08:00 11/12/18 08:00
--- NOTE | 2018-11-12 23:34 | CP.PCM.PN ---
<Rikki López - Last Filed: 11/13/18 01:00> Subjective - Date & Time of Evaluation Date of Evaluation: 11/13/18 Time of Evaluation: 21:30 - Subjective Subjective: Was called to bedside to eval pt due to abnormal rhythm strip concerning for bradycardia at 47 bpm, possible 1st deg AV block as per RN. Pt seen and examined at bedside, denies any acute complaints currently. Denies chest pain, sob, n/v/d/c, abd pain, headache, leg edema or other symptoms. Exam: Gen: WDWN, NAD HEENT: NCAT, PERRLA, EOMI Neck: supple, no JVD Heart: normal s1/s2, no m/r/g, reg rate and rhythm Lung: CTA b/l, no wheezes rales or rhonchi Abd: soft, NTND, normal bowel sounds x4 Exts: no c/c/e A/P: 58 F PMhx chronic renal failure, poorly controlled HTN, hx cerebral bleed, chronic back pain, and COPD, currently admitted for management of CAP. Called to eval pt for abnormal rhythm on strip. -Stat EKG done, demonstrates T-wave inversions consistent with prior EKG study from 5 am earlier today, LVH, NSR at 67 bpm. -No acute management needed at this time, will cont to monitor rhythm strip overnight. -Trop ordered for 6 am, repeat EKG in am Plan d/w Dr. Lindsey, attending physician. Objective - Vital Signs/Intake and Output Vital Signs (last 24 hours): Temp Pulse Resp BP Pulse Ox 97.4 F L 67 18 155/87 H 99 11/12/18 17:59 11/12/18 21:34 11/12/18 17:59 11/12/18 21:34 11/12/18 06:00 Intake and Output: 11/12/18 11/13/18 18:59 06:59 Intake Total 330 Output Total 0 Balance 330 - Medications Medications: Current Medications Acetaminophen (Tylenol 325mg Tab) 650 mg PO Q6H PRN PRN Reason: Fever >100.4 F Last Admin: 11/12/18 06:29 Dose: 650 mg Acetylcysteine (Acetylcysteine 20%) 4 ml IH BIDRESP [facility] Last Admin: 11/12/18 20:26 Dose: Not Given Alprazolam (Xanax) 1 mg PO QID PRN; Protocol PRN Reason: Anxiety Last Admin: 11/12/18 21:37 Dose: 1 mg Aspirin (Ecotrin) 81 mg PO DAILY [facility] Last Admin: 11/12/18 09:57 Dose: 81 mg Budesonide (Pulmicort Respules) 0.5 mg IH [id number] [facility] Last Admin: 11/12/18 20:26 Dose: 0.5 mg Calcium Acetate (Phoslo) 667 mg PO WM [facility] Last Admin: 11/12/18 17:20 Dose: 667 mg Clonidine HCl (Catapres) 0.1 mg PO Q6H PRN PRN Reason: Systolic Blood Pressure Clonidine HCl (Catapres) 0.2 mg PO TID [facility] Last Admin: 11/12/18 17:20 Dose: 0.2 mg Docusate Sodium (Colace) 100 mg PO DAILY PRN PRN Reason: Constipation Fluticasone Propionate (Flonase) 1 actuation NS HS [facility] Last Admin: 11/11/18 22:07 Dose: Not Given Heparin Sodium (Porcine) (Heparin) 5,000 units SC Q12 [facility]; Protocol Last Admin: 11/12/18 10:01 Dose: Not Given Hydralazine HCl (Apresoline) 100 mg PO TID [facility] Last Admin: 11/12/18 17:19 Dose: 100 mg Doxycycline Hyclate 100 mg/ (Sodium Chloride) 100 mls @ 100 mls/hr IVPB Q12 [facility]; Protocol Last Admin: 11/12/18 21:38 Dose: 100 mls/hr Aztreonam 250 mg/ Sodium (Chloride) 100 mls @ 100 mls/hr IVPB Q12 [facility] Stop: 11/17/18 22:01 Last Admin: 11/12/18 21:39 Dose: 100 mls/hr Labetalol HCl (Trandate) 200 mg PO Q8H [facility] Last Admin: 11/12/18 21:34 Dose: 200 mg Levalbuterol HCl (Xopenex) 1.25 mg IH TIDRESP [facility] Last Admin: 11/12/18 20:26 Dose: 1.25 mg Oxycodone HCl (Oxycodone Immediate Release Tab) 30 mg PO Q6H PRN PRN Reason: Pain, severe (8-10) Prednisone (Prednisone Tab) 10 mg PO DAILY [facility] Sodium Chloride ([employer] Nasal [place]) 0 ml NS Q4H PRN PRN Reason: Nasal congestion Zolpidem Tartrate (Ambien) 5 mg PO HS [facility]; Protocol Last Admin: 11/12/18 21:37 Dose: 5 mg - Labs Labs: 11/12/18 08:00 11/12/18 08:00 <Paras Lindsey - Last Filed: 11/18/18 02:42> Objective - Vital Signs/Intake and Output Vital Signs (last 24 hours): Temp Pulse Resp BP Pulse Ox 97.8 F 68 18 130/82 94 L 11/14/18 05:33 11/14/18 09:05 11/14/18 05:33 11/14/18 09:05 11/14/18 05:33 - Labs Labs: 11/12/18 08:00 11/12/18 23:50 Attending/Attestation - Attestation I have personally seen and examined this patient.: Yes I have fully participated in the care of the patient.: Yes I have reviewed all pertinent clinical information, including history, physical exam and plan: Yes
[2018-11-13 00:23] LABS: CALCIUM 7.7 mg/dL (8.4-10.5)
[2018-11-13 00:29] LABS: TROPONIN I 0.09 ng/mL
[2018-11-13] MEDS ORDERED: Potassium Chloride 20 mEq ER Tab PO ONE (01:08)
[2018-11-13] MEDS: Fluticasone Nasal 50 mcg/Spray NS SCH ×2 (03:35→21:54)
--- NOTE | 2018-11-13 06:35 | CP.PCM.PN ---
Subjective - Date & Time of Evaluation Date of Evaluation: 11/13/18 Time of Evaluation: 06:10 - Subjective Subjective: Ambulating to bathroom, awake, alert, feels better Reason for consultation and follow up: Cardiac evaluation of shortness of breath,history of COPD, hypertension,myocardial infarction, CHF, CVA, brain aneurysm with surgery, ESRD on hemodialysis Seen and examined by me and Dr. Smallwood Objective - Vital Signs/Intake and Output Vital Signs (last 24 hours): Temp Pulse Resp BP Pulse Ox 98.4 F 61 21 138/79 99 11/13/18 06:00 11/13/18 06:00 11/13/18 06:00 11/13/18 03:42 11/12/18 06:00 Intake and Output: 11/12/18 11/13/18 18:59 06:59 Intake Total 530 Output Total 0 Balance 530 - Medications Medications: Current Medications Acetaminophen (Tylenol 325mg Tab) 650 mg PO Q6H PRN PRN Reason: Fever >100.4 F Last Admin: 11/12/18 06:29 Dose: 650 mg Acetylcysteine (Acetylcysteine 20%) 4 ml IH BIDRESP [facility] Last Admin: 11/12/18 20:26 Dose: Not Given Alprazolam (Xanax) 1 mg PO QID PRN; Protocol PRN Reason: Anxiety Last Admin: 11/12/18 21:37 Dose: 1 mg Aspirin (Ecotrin) 81 mg PO DAILY [facility] Last Admin: 11/12/18 09:57 Dose: 81 mg Budesonide (Pulmicort Respules) 0.5 mg IH [id number] [facility] Last Admin: 11/12/18 20:26 Dose: 0.5 mg Calcium Acetate (Phoslo) 667 mg PO WM [facility] Last Admin: 11/12/18 17:20 Dose: 667 mg Clonidine HCl (Catapres) 0.1 mg PO Q6H PRN PRN Reason: Systolic Blood Pressure Clonidine HCl (Catapres) 0.2 mg PO TID [facility] Last Admin: 11/12/18 17:20 Dose: 0.2 mg Docusate Sodium (Colace) 100 mg PO DAILY PRN PRN Reason: Constipation Fluticasone Propionate (Flonase) 1 actuation NS HS [facility] Last Admin: 11/13/18 03:35 Dose: Not Given Heparin Sodium (Porcine) (Heparin) 5,000 units SC Q12 [facility]; Protocol Last Admin: 11/13/18 03:35 Dose: Not Given Hydralazine HCl (Apresoline) 100 mg PO TID [facility] Last Admin: 11/12/18 17:19 Dose: 100 mg Doxycycline Hyclate 100 mg/ (Sodium Chloride) 100 mls @ 100 mls/hr IVPB Q12 [facility]; Protocol Last Admin: 11/12/18 21:38 Dose: 100 mls/hr Aztreonam 250 mg/ Sodium (Chloride) 100 mls @ 100 mls/hr IVPB Q12 [facility] Stop: 11/17/18 22:01 Last Admin: 11/12/18 21:39 Dose: 100 mls/hr Labetalol HCl (Trandate) 200 mg PO Q8H [facility] Last Admin: 11/13/18 03:42 Dose: 200 mg Levalbuterol HCl (Xopenex) 1.25 mg IH TIDRESP [facility] Last Admin: 11/12/18 20:26 Dose: 1.25 mg Oxycodone HCl (Oxycodone Immediate Release Tab) 30 mg PO Q6H PRN PRN Reason: Pain, severe (8-10) Prednisone (Prednisone Tab) 10 mg PO DAILY [facility] Sodium Chloride ([place] Nasal [place]) 0 ml NS Q4H PRN PRN Reason: Nasal congestion Zolpidem Tartrate (Ambien) 5 mg PO HS [facility]; Protocol Last Admin: 11/12/18 21:37 Dose: 5 mg - Labs Labs: 11/12/18 08:00 11/12/18 23:50 - Constitutional Appears: Non-toxic, No Acute Distress - Head Exam Head Exam: NORMAL INSPECTION, NORMOCEPHALIC - Eye Exam Eye Exam: Normal appearance Pupil Exam: NORMAL ACCOMODATION - ENT Exam ENT Exam: Mucous Membranes Moist, Normal Exam - Respiratory Exam Respiratory Exam: Decreased Breath Sounds, Clear to Ausculation Bilateral, NORMAL BREATHING PATTERN - Cardiovascular Exam Cardiovascular Exam: +S1, +S2 - GI/Abdominal Exam GI & Abdominal Exam: Soft, Normal Bowel Sounds - Extremities Exam Extremities Exam: Full ROM, Normal Capillary Refill Additional comments: right AV shunt positive bruit - Neurological Exam Neurological Exam: Alert, Awake, Oriented x3 - Psychiatric Exam Psychiatric exam: Normal Affect, Normal Mood - Skin Skin Exam: Dry, Normal Color, Warm Assessment and Plan - Assessment and Plan (Free Text) Assessment: A 58 year old female who came in to the ER due to generalized weakness. She c laimed to have seen PMD last week for arm infection and was put on antibiotics. However felt so weak and complaining of shortness of breath. History of COPD, hypertension,myocardial infarction, CHF, CVA, brain aneurysm with surgery, ESRD on hemodialysis 3x a week (MWF), right arm AV shunt , anemia, GERD, anxiety, former smoker. Chest x ray showed suspected right basilar infiltrate. On IV antibiotics. Denies chest pain, troponin elevated secondary to chronic renal insufficiency. Will treat medically. Will start aspirin daily. On BIPAP for shortness of breath. EKG showed ST, non specific ST abnormality. Pneumonia. Had hemodialysis and pulled 1.5 liters of fluid. Echo done Echo done-normal chambers, LVEF 50%,Trace MR/TR/PI/AR RVSP 25 mmHg Plan: Episode of bradycardia last night, Patient asymptomatic, denies chest pain Will continue to monitor Denies shortness of breath Heart rate controlled Blood pressure controlled On ASA 81 mg daily, Hydralazine 100 mg TID, Catapres 0.2 mg TID Labetolol 200mg every 8 hours,Heparin 5000 units every 12 hours Solumedrol 20 mg BID Continue current treatment Continue current medications For hemodialysis today Pulmonary on consult Continue IV antibiotics as ordered by ID Discharge planning Will follow up Plan and treatment discussed with Dr. Smallwood
[2018-11-13] MEDS: Budesonide 0.5 mg/2 ml Inhal Susp UD IH SCH (08:22)
[2018-11-13] MEDS: Acetylcysteine 20% Inhal Soln (4ml) IH SCH (08:22)
[2018-11-13] MEDS: Levalbuterol 1.25 MG/3 ML Inhal Soln UD IH SCH ×2 (08:22→13:17)
[2018-11-13] MEDS ORDERED: guaiFENesin-Codeine 100-10mg/5ml Syrup (5 ml) UD PO PRN (08:39)
[2018-11-13] MEDS ORDERED: Doxercalciferol 4 mcg/2 ml Inj IVP ONE (10:30)
--- NOTE | 2018-11-13 11:36 | CP.PCM.PN ---
<Martell Rosa - Last Filed: 11/13/18 13:33> Subjective - Date & Time of Evaluation Date of Evaluation: 11/13/18 Time of Evaluation: 08:00 - Subjective Subjective: Infectious disease progress note: Patient seen and examined at . No acute events overnight. Patient complains of cough. Fever yesterday morning, afebrile since. NO sob or chest pain. 12 point ROS performed and negative other than stated above. Objective - Vital Signs/Intake and Output Vital Signs (last 24 hours): Temp Pulse Resp BP Pulse Ox 98.4 F 61 21 138/79 99 11/13/18 06:00 11/13/18 06:00 11/13/18 06:00 11/13/18 03:42 11/12/18 06:00 Intake and Output: 11/13/18 11/13/18 06:59 18:59 Intake Total 1310 Output Total 0 Balance 1310 - Medications Medications: Current Medications Acetaminophen (Tylenol 325mg Tab) 650 mg PO Q6H PRN PRN Reason: Fever >100.4 F Last Admin: 11/12/18 06:29 Dose: 650 mg Alprazolam (Xanax) 1 mg PO QID PRN; Protocol PRN Reason: Anxiety Last Admin: 11/13/18 08:06 Dose: 1 mg Aspirin (Ecotrin) 81 mg PO DAILY [facility] Last Admin: 11/13/18 09:14 Dose: Not Given Budesonide (Pulmicort Respules) 0.5 mg IH [id number] [facility] Last Admin: 11/13/18 08:22 Dose: Not Given Calcium Acetate (Phoslo) 667 mg PO WM [facility] Last Admin: 11/13/18 11:19 Dose: Not Given Clonidine HCl (Catapres) 0.1 mg PO Q6H PRN PRN Reason: Systolic Blood Pressure Clonidine HCl (Catapres) 0.2 mg PO TID [facility] Last Admin: 11/13/18 09:14 Dose: Not Given Docusate Sodium (Colace) 100 mg PO DAILY PRN PRN Reason: Constipation Fluticasone Propionate (Flonase) 1 actuation NS HS [facility] Last Admin: 11/13/18 03:35 Dose: Not Given Guaifenesin/Codeine Phosphate (Robitussin W/Codeine) 5 ml PO Q4H PRN PRN Reason: Cough and congestion Guaifenesin/Dextromethorphan (Mucinex-Dm 600-30 Mg) 1 tab PO BID [facility] Heparin Sodium (Porcine) (Heparin) 5,000 units SC Q12 [facility]; Protocol Last Admin: 11/13/18 09:15 Dose: Not Given Hydralazine HCl (Apresoline) 100 mg PO TID [facility] Last Admin: 11/13/18 09:14 Dose: Not Given Doxycycline Hyclate 100 mg/ (Sodium Chloride) 100 mls @ 100 mls/hr IVPB Q12 [facility]; Protocol Last Admin: 11/13/18 09:16 Dose: Not Given Aztreonam 250 mg/ Sodium (Chloride) 100 mls @ 100 mls/hr IVPB Q12 [facility] Stop: 11/17/18 22:01 Last Admin: 11/13/18 09:14 Dose: Not Given Labetalol HCl (Trandate) 200 mg PO Q8H [facility] Last Admin: 11/13/18 11:19 Dose: Not Given Levalbuterol HCl (Xopenex) 1.25 mg IH TIDRESP [facility] Last Admin: 11/13/18 08:22 Dose: Not Given Metoprolol Tartrate (Lopressor) 12.5 mg PO BID [facility] Last Admin: 11/13/18 09:15 Dose: Not Given Oxycodone HCl (Oxycodone Immediate Release Tab) 30 mg PO Q6H PRN PRN Reason: Pain, severe (8-10) Prednisone (Prednisone Tab) 10 mg PO DAILY [facility] Last Admin: 11/13/18 09:15 Dose: Not Given Sodium Chloride ([place] Nasal [place]) 0 ml NS Q4H PRN PRN Reason: Nasal congestion Zolpidem Tartrate (Ambien) 5 mg PO HS [facility]; Protocol Last Admin: 11/12/18 21:37 Dose: 5 mg - Labs Labs: 11/12/18 08:00 11/12/18 23:50 - Constitutional Appears: No Acute Distress - Head Exam Head Exam: ATRAUMATIC, NORMOCEPHALIC - Eye Exam Eye Exam: EOMI - Respiratory Exam Respiratory Exam: Clear to Ausculation Bilateral, Rhonchi. absent: Rales, Wheezes - Cardiovascular Exam Cardiovascular Exam: REGULAR RHYTHM, +S1, +S2 - GI/Abdominal Exam GI & Abdominal Exam: Soft. absent: Tenderness - Extremities Exam Extremities Exam: absent: Calf Tenderness, Pedal Edema - Neurological Exam Neurological Exam: Alert, Awake, Oriented x3 - Psychiatric Exam Psychiatric exam: Normal Mood - Skin Skin Exam: Dry, Warm Assessment and Plan - Assessment and Plan (Free Text) Assessment: 58 F with PMHx of COPD, hypertension, CAD ,CHF, CVA, brain aneurysm with surgery, ESRD on hemodialysis 3x a week (MWF), right arm AV shunt , anemia, GERD, and anxiety presents with sob and cough. CXR shows R basilar infiltrate. - Cont abx with Vanc, Aztreonam and Doxy - Influenza neg - F/u Legionella Ag - Cont to monitor - F/u nephro recs Case and plan was reviewed and discussed with Dr Win. <Bon Win - Last Filed: 11/13/18 16:17> Objective - Vital Signs/Intake and Output Vital Signs (last 24 hours): Temp Pulse Resp BP Pulse Ox 97.6 F 63 16 159/87 H 97 11/13/18 12:30 11/13/18 13:59 11/13/18 12:30 11/13/18 13:59 11/13/18 08:33 Intake and Output: 11/13/18 11/13/18 06:59 18:59 Intake Total 1310 Output Total 0 Balance 1310 - Medications Medications: Current Medications Acetaminophen (Tylenol 325mg Tab) 650 mg PO Q6H PRN PRN Reason: Fever >100.4 F Last Admin: 11/12/18 06:29 Dose: 650 mg Alprazolam (Xanax) 1 mg PO QID PRN; Protocol PRN Reason: Anxiety Last Admin: 11/13/18 08:06 Dose: 1 mg Aspirin (Ecotrin) 81 mg PO DAILY [facility] Last Admin: 11/13/18 13:59 Dose: 81 mg Budesonide (Pulmicort Respules) 0.5 mg IH [id number] [facility] Last Admin: 11/13/18 08:22 Dose: Not Given Calcium Acetate (Phoslo) 667 mg PO WM [facility] Last Admin: 11/13/18 11:19 Dose: Not Given Clonidine HCl (Catapres) 0.1 mg PO Q6H PRN PRN Reason: Systolic Blood Pressure Clonidine HCl (Catapres) 0.2 mg PO TID [facility] Last Admin: 11/13/18 13:59 Dose: 0.2 mg Docusate Sodium (Colace) 100 mg PO DAILY PRN PRN Reason: Constipation Fluticasone Propionate (Flonase) 1 actuation NS [facility] Last Admin: 11/13/18 03:35 Dose: Not Given Guaifenesin/Codeine Phosphate (Robitussin W/Codeine) 5 ml PO Q4H PRN PRN Reason: Cough and congestion Guaifenesin/Dextromethorphan (Mucinex-Dm 600-30 Mg) 1 tab PO BID [facility] Heparin Sodium (Porcine) (Heparin) 5,000 units SC Q12 [facility]; Protocol Last Admin: 11/13/18 09:15 Dose: Not Given Hydralazine HCl (Apresoline) 100 mg PO TID [facility] Last Admin: 11/13/18 13:58 Dose: 100 mg Doxycycline Hyclate 100 mg/ (Sodium Chloride) 100 mls @ 100 mls/hr IVPB Q12 [facility]; Protocol Last Admin: 11/13/18 14:32 Dose: 100 mls/hr Aztreonam 250 mg/ Sodium (Chloride) 100 mls @ 100 mls/hr IVPB Q12 [facility] Stop: 11/17/18 22:01 Last Admin: 11/13/18 13:32 Dose: 100 mls/hr Labetalol HCl (Trandate) 200 mg PO Q8H [facility] Last Admin: 11/13/18 11:19 Dose: Not Given Levalbuterol HCl (Xopenex) 1.25 mg IH TIDRESP [facility] Last Admin: 11/13/18 13:17 Dose: Not Given Metoprolol Tartrate (Lopressor) 12.5 mg PO BID [facility] Last Admin: 11/13/18 09:15 Dose: Not Given Oxycodone HCl (Oxycodone Immediate Release Tab) 30 mg PO Q6H PRN PRN Reason: Pain, severe (8-10) Last Admin: 11/13/18 14:39 Dose: 30 mg Prednisone (Prednisone Tab) 10 mg PO DAILY [facility] Last Admin: 11/13/18 13:59 Dose: 10 mg Sodium Chloride ([place] Nasal [place]) 0 ml NS Q4H PRN PRN Reason: Nasal congestion Zolpidem Tartrate (Ambien) 5 mg PO [facility]; Protocol Last Admin: 11/12/18 21:37 Dose: 5 mg - Labs Labs: 11/12/18 08:00 11/12/18 23:50 Assessment and Plan - Assessment and Plan (Free Text) Assessment: Infectious diseases Attending Physician Attestation Patient seen and examined, discussed with medical scientist. I have reviewed the patient's history of present illness, past medical, social, personal and family histories, pertinent physical exam findings, course so far in this hospital admission, pertinent laboratory and imaging results. I agree with the above findings, assessment and plan. In addition, continue intermittent IV Vancomycin, Aztreonam and Doxycycline day 3 for patient with probable right sided HCAP. Cultures have been negative. Complete 4-7 days of therapy.
--- NOTE | 2018-11-13 12:15 | PN ---
DATE: 11/13/2018 PULMONARY PROGRESS NOTE REFERRING PHYSICIAN: Carlos Eduardo Resendiz MD SUBJECTIVE: The patient is seen, receiving hemodialysis, reports having productive cough, shortness of breath has improved. The patient report that she does not like Mucomyst nebulizer treatment smell, makes her feel a little nauseous. No headache, rhinitis, chest pain, abdominal pain, nausea, vomiting, diarrhea, leg pain or leg swelling reported. OBJECTIVE: VITAL SIGNS: Blood pressure 138/79, pulse 66, temperature 97.9. GENERAL: No acute distress. HEENT: Moist mucous membranes. Crowded airway, Mallampati score 4. NECK: Supple. No JVD. LUNGS: Rhonchi bilaterally. CARDIOVASCULAR: S1, S2. ABDOMEN: Soft, nontender. No distention. No organomegaly. EXTREMITIES: No bilateral lower extremity edema. NEUROLOGIC: Awake, alert, verbal. Follows commands. MEDICATIONS: Reviewed. Tylenol 650 every 6 hours p.r.n. fever greater than 100.4, Mucomyst 4 mL inhalation twice a day, Xanax 1 mg 4 times a day p.r.n., aspirin 81 mg daily, aztreonam 250 mg every 12 hours, Pulmicort 0.5 mg every 12 hours, calcium acetate 667 mg Mondays and Wednesdays, clonidine 0.1 mg p.o. every 6 hours p.r.n., clonidine 0.2 mg p.o. 3 times a day, Colace 100 mg p.o. daily p.r.n., doxycycline 100 mg every 12 hours, Flonase one nasal spray at bedtime, Robitussin with Codeine 5 mL every 4 hours p.r.n., heparin 5000 units subcu every 12 hours, hydralazine 100 mg 3 times a day, labetalol 200 mg every 8 hours, Xopenex 1.25 mg inhalation 3 times a day, metoprolol tartrate 12.5 mg twice a day, oxycodone 30 mg every 6 hours p.r.n., prednisone 10 mg daily, [place] nasal spray every 4 hours p.r.n., Ambien 5 mg at bedtime. LABORATORY DATA: Reviewed. Troponin 0.11. Blood cultures preliminary, no growth after 48 hours. Electrocardiogram report pending. IMPRESSION AND PLAN: Sinusitis, community-acquired pneumonia, end-stage renal disease on hemodialysis, chronic obstructive pulmonary disease, hypertension. Continue prednisone 10 mg tapering over 5 days. We will discontinue Mucomyst and start the patient on Mucinex DM tablets. Continue antibiotic therapy per Infectious Disease. Continue inhaled bronchodilators. Recommend the patient attended sleep study as outpatient for suspected sleep apnea syndrome. The patient will need full pulmonary function test. This patient was seen and examined with Dr. Moran. Discussed assessment and plan as described above. This patient was seen and examined with Cyrus Canas, nurse practitioner. Discussed assessment and plan as described above. Thank you for this consult. We will follow with you. Cyrus Canas APN Chloe Moran MD
--- NOTE | 2018-11-13 13:00 | PN ---
DATE: 11/12/2018 SUBJECTIVE: A 58-year-old female. She is doing better. She has no new complaints. She has no chest pain. Her cough is better. Her breathing is better. Still on IV antibiotics. She gets vancomycin. She is on doxycycline. The patient otherwise stable. PHYSICAL EXAMINATION: VITAL SIGNS: Temperature 97, heart rate 62, blood pressure 137/87 and respiration 18. HEENT: Head and neck normal. No JVD. No thyromegaly. CHEST: Clear bilaterally. CARDIAC: First sounds and second sounds normal. ABDOMEN: Soft and nontender. EXTREMITIES: No edema. NEUROLOGICAL: Normal. The patient has right hand fistula. LABORATORY DATA: White count 7.2, hemoglobin 11.8, hematocrit 36.6 and platelet 154. Chemistry; sodium 131, potassium 3.4, chloride 94, bicarb 23, BUN 55, creatinine 6.3 and blood sugar 170. The patient had hemoglobin A1c 5.7. She has also troponin which is 0.11 slightly elevated and 0.20. The patient otherwise stable. IMPRESSION: 1. Community-acquired pneumonia, continue doxycycline and vancomycin. Continue inhaled bronchodilator. Continue Mucomyst. 2. Chronic renal failure on dialysis, stable. Continue current treatments. 3. Chronic anxiety. Continue Xanax. 4. 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 Continue oxycodone p.r.n. CURRENT MEDICATIONS: The patient taking Mucomyst, Ambien at night, hydralazine 100 t.i.d., Azactam 250 mg every 12 hours and Catapres p.r.n. and Catapres 0.2 mg t.i.d., Colace 100 mg and doxycycline IV every 12, aspirin, Flonase, heparin subcutaneous, [place] spray, oxycodone, PhosLo, prednisone now p.o., pulmicort inhalers, labetalol 200 mg every 8 hours, Tylenol, Xanax 1 mg t.i.d. and Xopenex t.i.d. PLAN: Continue current treatment. We will discuss with the other consultants. Carlos Eduardo Resendiz MD [facility] # [id number]
[2018-11-13] MEDS ORDERED: Vancomycin 1gm in NS 250ml 1 GM/250 ML BAG IVPB STA (16:15)
--- NOTE | 2018-11-13 16:55 | CARD ---
APPROVED REPORT Date of service: 11/13/2018 EKG Measurement Heart [id number] CA [id number] <Conclusion> Sinus bradycardia T wave abnormality, consider anterolateral ischemia Prolonged QT Abnormal ECG
--- NOTE | 2018-11-13 17:21 | CARD ---
APPROVED REPORT Date of service: 11/12/2018 EKG Measurement Heart [id number] <Conclusion> Normal sinus rhythm Possible Left atrial enlargement Left ventricular hypertrophy T wave abnormality, consider anterolateral ischemia Prolonged QT Abnormal ECG
[2018-11-13] MEDS: guaiFENesin-DM 600-30 mg ER Tab PO SCH (17:24)
--- NOTE | 2018-11-13 21:08 | PN ---
DATE: 11/13/2018 SUBJECTIVE: The patient was seen sitting in bed. She is awake and alert. She is complaining of being weak. She is complaining of cough. She is complaining of shortness of breath. She had dialysis earlier today. PHYSICAL EXAMINATION: GENERAL: Middle-aged lady sitting in bed. VITAL SIGNS: Blood pressure 159/87, heart rate 63, respiratory rate 18, temperature 97.6. HEENT: Normocephalic, atraumatic, positive pallor. NECK: Supple. No JVD. CARDIOPULMONARY: S1, S2. Regular rate and rhythm, no murmur, no rub. LUNGS: Bilateral rhonchi, bilateral expiratory wheeze, bilateral prolonged expiration. ABDOMEN: Soft, nondistended, nontender, bowel sounds present. EXTREMITIES: No lower extremity edema. LABORATORY DATA: WBC 7, hemoglobin 11.8, hematocrit 36.6, platelets 154. No new labs today. Blood cultures no growth. CURRENT MEDICATIONS: Ambien, Apresoline 100 t.i.d., aztreonam 250 every 12, Catapres 0.2 t.i.d., Colace, doxycycline 100 every 12, aspirin, Flonase, Lopressor tartrate 12.5 b.i.d., PhosLo with meals, prednisone 10 daily Pulmicort, Trandate 200 every 8, Tylenol, vancomycin 1 g given yesterday, Xanax, Xopenex. ASSESSMENT: 1. Chronic obstructive pulmonary disease exacerbation. 2. Right lower lobe pneumonia. 3. Severe hypertension. 4. History of coronary artery disease and . 5. End stage renal disease. PLAN: 1. Continue vancomycin, plus aztreonam, plus doxycycline as per ID. 2. Stable dialysis today. 3. Continue respiratory treatment. 4. Continue phosphate binders. Kayleen Flores MD
[2018-11-14 05:35] VITALS: RESP 18; TEMP 97.8; O2SAT 94
--- NOTE | 2018-11-14 07:06 | CP.PCM.PN ---
Subjective - Date & Time of Evaluation Date of Evaluation: 11/14/18 Time of Evaluation: 06:25 - Subjective Subjective: Sitting side of bed, awake, alert, feels better,wanted to go home Reason for consultation and follow up: Cardiac evaluation of shortness of breath,history of COPD, hypertension,myocardial infarction, CHF, CVA, brain aneurysm with surgery, ESRD on hemodialysis Seen and examined by me and Dr. Leon Objective - Vital Signs/Intake and Output Vital Signs (last 24 hours): Temp Pulse Resp BP Pulse Ox 97.8 F 70 18 174/95 H 94 L 11/14/18 05:33 11/14/18 05:37 11/14/18 05:33 11/14/18 05:37 11/14/18 05:33 Intake and Output: 11/14/18 11/14/18 06:59 18:59 Intake Total 260 Balance 260 - Medications Medications: Current Medications Acetaminophen (Tylenol 325mg Tab) 650 mg PO Q6H PRN PRN Reason: Fever >100.4 F Last Admin: 11/12/18 06:29 Dose: 650 mg Alprazolam (Xanax) 1 mg PO QID PRN; Protocol PRN Reason: Anxiety Last Admin: 11/13/18 08:06 Dose: 1 mg Aspirin (Ecotrin) 81 mg PO DAILY [facility] Last Admin: 11/13/18 13:59 Dose: 81 mg Budesonide (Pulmicort Respules) 0.5 mg IH [id number] [facility] Last Admin: 11/13/18 08:22 Dose: Not Given Calcium Acetate (Phoslo) 667 mg PO WM [facility] Last Admin: 11/13/18 17:24 Dose: 667 mg Clonidine HCl (Catapres) 0.1 mg PO Q6H PRN PRN Reason: Systolic Blood Pressure Clonidine HCl (Catapres) 0.2 mg PO TID [facility] Last Admin: 11/13/18 17:24 Dose: 0.2 mg Docusate Sodium (Colace) 100 mg PO DAILY PRN PRN Reason: Constipation Fluticasone Propionate (Flonase) 1 actuation NS HS [facility] Last Admin: 11/13/18 21:54 Dose: 1 spray Guaifenesin/Codeine Phosphate (Robitussin W/Codeine) 5 ml PO Q4H PRN PRN Reason: Cough and congestion Guaifenesin/Dextromethorphan (Mucinex-Dm 600-30 Mg) 1 tab PO BID [facility] Last Admin: 11/13/18 17:24 Dose: 1 tab Heparin Sodium (Porcine) (Heparin) 5,000 units SC Q12 [facility]; Protocol Last Admin: 11/13/18 21:55 Dose: Not Given Hydralazine HCl (Apresoline) 100 mg PO TID [facility] Last Admin: 11/13/18 17:25 Dose: 100 mg Doxycycline Hyclate 100 mg/ (Sodium Chloride) 100 mls @ 100 mls/hr IVPB Q12 S ; Protocol Last Admin: 11/13/18 21:53 Dose: 100 mls/hr Aztreonam 250 mg/ Sodium (Chloride) 100 mls @ 100 mls/hr IVPB Q12 [facility] Stop: 11/17/18 22:01 Last Admin: 11/13/18 22:08 Dose: 100 mls/hr Labetalol HCl (Trandate) 200 mg PO Q8H [facility] Last Admin: 11/14/18 05:37 Dose: 200 mg Levalbuterol HCl (Xopenex) 1.25 mg IH TIDRESP [facility] Last Admin: 11/13/18 13:17 Dose: Not Given Metoprolol Tartrate (Lopressor) 12.5 mg PO BID [facility] Last Admin: 11/13/18 17:24 Dose: 12.5 mg Oxycodone HCl (Oxycodone Immediate Release Tab) 30 mg PO Q6H PRN PRN Reason: Pain, severe (8-10) Last Admin: 11/13/18 14:39 Dose: 30 mg Prednisone (Prednisone Tab) 10 mg PO DAILY [facility] Last Admin: 11/13/18 13:59 Dose: 10 mg Sodium Chloride (Frannie Nasal [place]) 0 ml NS Q4H PRN PRN Reason: Nasal congestion Zolpidem Tartrate (Ambien) 5 mg PO HS [facility]; Protocol Last Admin: 11/13/18 22:10 Dose: 5 mg - Labs Labs: 11/12/18 08:00 11/12/18 23:50 - Constitutional Appears: Non-toxic, No Acute Distress - Head Exam Head Exam: NORMAL INSPECTION, NORMOCEPHALIC - Eye Exam Eye Exam: Normal appearance Pupil Exam: NORMAL ACCOMODATION - ENT Exam ENT Exam: Mucous Membranes Moist, Normal Exam - Respiratory Exam Respiratory Exam: Decreased Breath Sounds, NORMAL BREATHING PATTERN - Cardiovascular Exam Cardiovascular Exam: +S1, +S2 - GI/Abdominal Exam GI & Abdominal Exam: Soft, Normal Bowel Sounds - Exam Additional comments: ESRD on hemodialysis 3 x a week - Extremities Exam Extremities Exam: Full ROM, Normal Capillary Refill Additional comments: right AV shunt positive bruit - Neurological Exam Neurological Exam: Alert, Awake, Oriented x3 - Psychiatric Exam Psychiatric exam: Normal Affect, Normal Mood - Skin Skin Exam: Dry, Normal Color, Warm Assessment and Plan - Assessment and Plan (Free Text) Assessment: A 58 year old female who came in to the ER due to generalized weakness. She claimed to have seen PMD last week for arm infection and was put on antibiotics. However felt so weak and complaining of shortness of breath. History of COPD, hypertension,myocardial infarction, CHF, CVA, brain aneurysm with surgery, ESRD on hemodialysis 3x a week (MWF), right arm AV shunt , anemia, GERD, anxiety, former smoker. Chest x ray showed suspected right basilar infiltrate. On IV antibiotics. Denies chest pain, troponin elevated secondary to ESRD, on hemodialysis. No plan for cardiac catheterization,previous cardiac cath, non-obstructive coronary artery disease. Treat medically. Aspirin daily. On BIPAP for shortness of breath. EKG showed ST, non specific ST abnormality. Pneumonia. Echo done Echo done-normal chambers, LVEF 50%,Trace MR/TR/PI/AR RVSP 25 mmHg. Cardiac status stable. IV antibiotics for pneumonia. Hemodialysis. Plan: Clinically improved Denies shortness of breath Heart rate controlled Blood pressure controlled Cardiac status stable On ASA 81 mg daily, Hydralazine 100 mg TID, Catapres 0.2 mg TID Labetolol 200mg every 8 hours,Heparin 5000 units every 12 hours Solumedrol 20 mg BID Continue current treatment Continue current medications Had hemodialysis yesterday Pulmonary on consult Continue IV antibiotics as ordered by ID Discharge planning Will follow up Plan and treatment discussed with Dr. Leon
[2018-11-14] MEDS: Levalbuterol 1.25 MG/3 ML Inhal Soln UD IH SCH (08:08)
[2018-11-14] MEDS: Budesonide 0.5 mg/2 ml Inhal Susp UD IH SCH (08:08)
--- NOTE | 2018-11-14 08:57 | PN ---
DATE: 11/14/2018 PULMONARY PROGRESS NOTE REFERRING PHYSICIAN: Carlos Eduardo Resendiz MD SUBJECTIVE: The patient is sitting up in bed. No acute distress. No overnight events reported. The patient reports not wearing CPAP machine last night. States that she feels much better this morning. No cough. No headache, rhinitis, cough, shortness of breath, chest pain, abdominal pain, nausea, vomiting, diarrhea, leg pain or leg swelling reported. OBJECTIVE: GENERAL: No acute distress. VITAL SIGNS: Blood pressure 174/95, pulse 66, temperature 97.8 and oxygen saturation 94%. HEENT: Moist mucous membranes. Crowded airway, Mallampati score 4. NECK: Supple. No JVD. LUNGS: Rhonchi bilaterally. CARDIOVASCULAR: S1 and S2 audible. ABDOMEN: Soft and nontender. No distention. No organomegaly. EXTREMITIES: No bilateral lower extremity edema. NEUROLOGIC: Awake, alert and verbal. Follows commands. MEDICATIONS: Reviewed. Tylenol 650 mg every 6 hours p.r.n. fever greater than 100.4, Xanax 100 mg 4 times a day p.r.n., aspirin 81 mg daily, aztreonam 250 mg every 12 hours, Pulmicort 0.5 mg every 12 hours, calcium acetate 667 mg, clonidine 0.1 mg every 6 hours p.r.n., clonidine 0.2 mg 3 times a day, Colace 100 mg daily, doxycycline 100 mg every 12 hours, Flonase nasal spray at bedtime, Robitussin with Codeine 5 mL every 4 hours p.r.n., Mucinex 1 tab twice a day, heparin 5000 units subcutaneously every 12 hours, hydralazine 100 mg 3 times a day, labetalol 200 mg every 8 hours, Xopenex 1.25 mg inhalation 3 times a day, Lopressor 12.5 mg twice a day, oxycodone 30 mg every 6 hours p.r.n., prednisone 10 mg daily, Rice nasal spray every 4 hours p.r.n., Ambien 5 mg at bedtime. LABORATORY DATA: Reviewed. Blood cultures preliminary, no growth after 3 days. IMPRESSION AND PLAN: Sinusitis, community-acquired pneumonia, end-stage renal disease on hemodialysis, chronic obstructive pulmonary disease, hypertension. Continue inhaled bronchodilators, antibiotics per Infectious Disease. Continue prednisone 10 mg at this time. Encourage continuous positive airway pressure use at bedtime, sleep apnea precaution, head of elevated at 45 degrees. Recommend the patient have attended sleep study and full pulmonary function test as outpatient. This patient was seen and examined with Dr. Moran. Discussed assessment and plan as described above. This patient was seen and examined with Cyrus Canas, nurse practitioner. Discussed assessment and plan as described above. Thank you for this consult and we will follow with you. Cyrus Canas APN Chloe Moran MD THO
[2018-11-14 09:09] VITALS: BP 130/82; PULSE 68
[2018-11-14] MEDS: guaiFENesin-DM 600-30 mg ER Tab PO SCH (09:09)
--- NOTE | 2018-11-14 18:54 | PN ---
DATE: 11/14/2018 SUBJECTIVE: The patient is seen earlier today. She is ready for discharge. She is awake and alert and doing well. PHYSICAL EXAMINATION: VITAL SIGNS: Temperature is 97, blood pressure is 130/70, respiratory rate of 18. HEENT: Unremarkable. NECK: Supple. CARDIOPULMONARY: Normal S1, S2. LUNGS: Have decreased breath sounds. ABDOMEN: Soft, nontender. LABORATORY DATA: Laboratory examination is reviewed. ASSESSMENT AND PLAN: This is a 58-year-old female with chronic obstructive pulmonary disease, hypertension, coronary artery disease, congestive heart failure, cerebrovascular accident and brain aneurysm surgery, end-stage renal disease, hemodialysis on right arm, shunt, anemia. Anxiety presents with shortness of breath which shows infiltrate with complete with p.o. doxycycline. Case was discussed with PMD and the nursing care with staff and we will follow with you. David Novak MD
--- NOTE | 2018-11-14 22:34 | PN ---
DATE: 11/13/2018 SUBJECTIVE: The patient is still coughing. She has difficulty problem with coughing. She does get reaction with Mucomyst, so we will give her different medication. She has no other complaints. She had dialysis today. PHYSICAL EXAMINATION: VITAL SIGNS: Temperature 98, heart rate 63, blood pressure 159/87, and respirations 18. HEAD AND NECK: Normal. No JVD. No thyromegaly. CHEST: Clear except in the bases. There is rhonchi and rales in the lower lung. CARDIAC: First sound and second sound normal. ABDOMEN: Soft and nontender. EXTREMITIES: No edema. NEUROLOGICAL: Normal. LABORATORY DATA: White count 7.2, hemoglobin 11.8, hematocrit 36.6, and platelets 154. Chemistry shows sodium 131, potassium 3.4, chloride 94, bicarb 23, BUN 55, creatinine 6.3, and troponin is negative. ASSESSMENT AND PLAN: 1. Community-acquired pneumonia, continue IV antibiotics. She is getting Azactam, doxycycline and she got IV vancomycin before. The patient is seen by Dr. Moran. Continue inhaled bronchodilator. We are going to add the Mucinex DM and we will get chest CT to help her cough. 2. Chest discomfort. Seen by Cardiology, Dr. Smallwood. The patient had a cardiac cath. Nonobstructive coronary and seems stable. 3. Chronic renal failure, on hemodialysis. 4. Hypertension, poorly controlled. Continue current blood pressure medicines, seems stable now. Plan is to continue current treatment. 5. Chronic back pain. 6. Chronic osteoarthritis. 7. Degenerative disc disease. Continue oxycodone. 8. Chronic anxiety. Continue current therapy. Carlos Eduardo Resendiz MD
--- NOTE | 2018-11-15 01:12 | DS ---
HISTORY OF PRESENT ILLNESS: Patient has pneumonia, seen by ID consult who okayed to discharge the patient on doxycycline 4 more days. She has no chest pain. No other complaints. Her vitals are stable, afebrile. She will be discharged. PHYSICAL EXAMINATION: VITAL SIGNS: Temperature 97.7, heart rate 64, blood pressure 130/82, respirations 18. HEAD AND NECK: Normal. No JVD. No thyromegaly. CHEST: Clear except at bases a few rhonchi. CARDIAC: First sound and second sound normal. ABDOMEN: Soft and nontender. EXTREMITIES: No edema. NEUROLOGIC: Normal. DISCHARGE DIAGNOSES: 1. Community-acquired pneumonia. Continue doxycycline for 4 more days. 2. Chronic renal failure on hemodialysis as outpatient. 3. Hypertension, poorly controlled. Continue blood pressure medications as outpatient. 4. Chronic back pain. 5. Chronic anxiety. Continue current therapy, Follow up as outpatient. 6. Chronic obstructive pulmonary disease. PLAN: Patient had dialysis recently, she seems stable. Okayed to be discharged by ID consult. Seen by Dr. Moran and Dr. Smallwood. Carlos Eduardo Resendiz MD
== END 2018-11-14 12:07 | disposition home or self-care (01) | DRG 541 ==
LOC: ED 13:00 → ERH 16:09 → 2RNO 21:59
PROVIDERS: ADMIT Internal Medicine; ATTEND Internal Medicine
PROC: 5A1D70Z Performance of Urinary Filtration, Intermittent, Less than 6 Hours Per Day (ICD-10-PCS; principal; 2018-11-10)
PROC: 5A09357 Assistance with Respiratory Ventilation, Less than 24 Consecutive Hours, Continuous Positive Airway Pressure (ICD-10-PCS; 2018-11-10)
PROC: 5A1D70Z Performance of Urinary Filtration, Intermittent, Less than 6 Hours Per Day (ICD-10-PCS; 2018-11-11)
PROC: 5A1D70Z Performance of Urinary Filtration, Intermittent, Less than 6 Hours Per Day (ICD-10-PCS; 2018-11-13)
DX: J18.1 Lobar pneumonia, unspecified organism (principal); I50.30 Unspecified diastolic (congestive) heart failure; I13.2 Hypertensive heart and chronic kidney disease with heart failure and with stage 5 chronic kidney disease, or end stage renal disease; N18.6 End stage renal disease; J44.1 Chronic obstructive pulmonary disease with (acute) exacerbation; J44.0 Chronic obstructive pulmonary disease with (acute) lower respiratory infection; I67.1 Cerebral aneurysm, nonruptured; D63.1 Anemia in chronic kidney disease; E03.9 Hypothyroidism, unspecified; F31.9 Bipolar disorder, unspecified; I25.10 Atherosclerotic heart disease of native coronary artery without angina pectoris; I47.1 Supraventricular tachycardia; I45.81 Long QT syndrome; N25.81 Secondary hyperparathyroidism of renal origin; K21.9 Gastro-esophageal reflux disease without esophagitis; M47.897 Other spondylosis, lumbosacral region; F41.0 Panic disorder [episodic paroxysmal anxiety]; Y95 Nosocomial condition; I25.2 Old myocardial infarction; Z91.15 Patient's noncompliance with renal dialysis; Z99.2 Dependence on renal dialysis; Z86.73 Personal history of transient ischemic attack (TIA), and cerebral infarction without residual deficits; Z87.891 Personal history of nicotine dependence; Z91.19 Patient's noncompliance with other medical treatment and regimen; Z88.0 Allergy status to penicillin; Z83.3 Family history of diabetes mellitus

== ENCOUNTER 2019-01-21 14:25 | Outpatient (CLI) | payer MEDICAID | END 2019-01-21 14:26 | disposition home or self-care (01) | LOC: RAD 14:25 | DX: Z12.31 Encounter for screening mammogram for malignant neoplasm of breast (principal) ==